=== PATIENT | female | born 1960 | race Caucasian/White ===

== ENCOUNTER 2022-07-09 00:09 | Day surgery (SDC) | payer BC, OTHER, SELFPAY ==
[2022-06-24 13:58] VITALS: BMI 38.7
--- NOTE | 2022-07-08 14:32 | PM.HPGS ---
History of Present Illness History of Present Illness Consent: Risks, benefits, and alternatives have been discussed and questions answered. Patient agrees to proceed with procedure. Chief complaint: neoplasm screening Narrative: Jennifer Gay is a 62 year old female referred for colon cancer screening. This is her 1st colonoscopy. Review of Systems Review of Systems: All systems reviewed & are unremarkable except as noted in HPI and below PMFSH Past Medical History Medical History Diabetes HTN (hypertension) Hypercholesterolemia Obesity Social History Social History Smoking status: Never smoker Alcohol intake: current Drinks per week: 1 Substance use type: does not use Living arrangements: with family Spiritual care concerns: No Meds Home Medications and Allergies Home Medications Medication Instructions Recorded Confirmed Type dulaglutide 3 mg/0.5 mL 4.5 mg subcut WEEKLY 06/24/22 07/09/22 History subcutaneous pen injector (Trulicity) glimepiride 2 mg tablet 2 mg PO DAILY 06/24/22 07/09/22 History hydrochlorothiazide 25 mg tablet 25 mg PO DAILY 06/24/22 07/09/22 History losartan 50 mg tablet 50 mg PO DAILY 06/24/22 07/09/22 History metformin 1,000 mg tablet 1,000 mg PO DAILY 06/24/22 07/09/22 History rosuvastatin 10 mg tablet 10 mg PO DAILY 06/24/22 07/09/22 History Allergies Allergy/AdvReac Type Severity Reaction Status Date / Time No Known Allergies Allergy Mild Verified 07/09/22 08:28 Exam Resp: Auscultation: clear to auscultation bilaterally Cardio: Rate: regular rate Rhythm: regular rhythm GI: GI Palp: Yes Soft to palpation and No Tenderness to palpation present (GI) Assessment and Plan Assessment and plan (1) Colon cancer screening: Code(s): Z12.11 - Encounter for screening for malignant neoplasm of colon Status: Acute Assessment and Plan: Colonoscopy with possible biopsy or polypectomy or cautery or injection of substances.
[2022-07-09] MEDS: LACTATED RINGERS 1,000 ML 150 ML IV CONT (08:40)
[2022-07-09 08:42] VITALS: BP 149/89; PULSE 86; RESP 18; TEMP 36.7; O2SAT 96
[2022-07-09 08:51] LABS: Glucose Point of Care 123 mg/dl (65-105)
--- NOTE | 2022-07-09 08:51 | P.PNAN_ITS ---
Anes - Initial Pre Proc Eval Procedure: Operation Date: 07/09/22 09:30 Proposed Procedures p Screening Colonoscopy - Arthur Jaeger MD Date/Time: 07/09/22 08:51 Surgeon: Arthur Jaeger MD Pre Op Diagnosis: neoplasm screening Patient Data Age: 62 Gender: F Height: 1.78 m Weight: 122.5 kg Last Vital Signs Temp 36.7 C 07/09/22 08:42 Pulse 86 07/09/22 08:42 Resp 18 07/09/22 08:42 BP 149/89 H 07/09/22 08:42 Pulse Ox 96 07/09/22 08:42 O2 Del Method Room Air 07/09/22 08:42 Allergies Allergy/AdvReac Type Severity Reaction Status Date / Time No Known Allergies Allergy Mild Verified 07/09/22 08:28 Home Medications Medication Instructions Recorded Confirmed Type dulaglutide 3 mg/0.5 mL 4.5 mg subcut WEEKLY 06/24/22 07/09/22 History subcutaneous pen injector (Trulicity) glimepiride 2 mg tablet 2 mg PO DAILY 06/24/22 07/09/22 History hydrochlorothiazide 25 mg tablet 25 mg PO DAILY 06/24/22 07/09/22 History losartan 50 mg tablet 50 mg PO DAILY 06/24/22 07/09/22 History metformin 1,000 mg tablet 1,000 mg PO DAILY 06/24/22 07/09/22 History rosuvastatin 10 mg tablet 10 mg PO DAILY 06/24/22 07/09/22 History Patient hx anesthesia problems: none Family hx anesthesia problems: none Results Review: All pre-operative results and documents have been reviewed as part of the pre-operative evaluation. [facility] Past Medical History Medical History (Updated 07/09/22 @ 08:52 by Refugio Dudley MD) Diabetes HTN (hypertension) Hypercholesterolemia Obesity Social History Social History Smoking status: Never smoker Alcohol intake: current Drinks per week: 1 Substance use type: does not use Living arrangements: with family Spiritual care concerns: No Anes - Eval Final PreProcedure Day of Procedure 07/09/22 08:51 Patient weight: obese Heart: regular rate and rhythm Lungs: clear to auscultation and normal air movement Airway: Mallampati scale class II Neurological: alert and oriented Last oral intake: >/= 8 hours ASA classification: III Emergent: no Anesthetic plan: proceed Anesthesia type and monitoring: general GIVS Results Review: All pre-operative results and documents have been reviewed as part of the pre- operative evaluation. Informed Consent: The patient's anesthetic plan and its attendant risks and benefits were discussed with the patient/family/POA. Questions were solicited and answers provided to the satisfaction of the patient/family/POA.
[2022-07-09 09:29] VITALS: BP 105/60; PULSE 96; RESP 23; TEMP 36.7; O2SAT 100
[2022-07-09 09:39] VITALS: BP 109/70; PULSE 97; RESP 22; TEMP 36.7; O2SAT 100
[2022-07-09 09:44] VITALS: BP 111/69; PULSE 77; RESP 20; TEMP 36.7; O2SAT 100
== END 2022-07-09 09:54 | disposition home or self-care (01) ==
PROVIDERS: PCP Nurse Practitioner Family; Visit Provider Internal Medicine Gastroenterology
PROC: 0DJD8ZZ Inspection of Lower Intestinal Tract, Via Natural or Artificial Opening Endoscopic (ICD-10-PCS; CPT 45378; principal; 2022-07-09 09:30)
DX: Z12.11 Encounter for screening for malignant neoplasm of colon (principal); K62.1 Rectal polyp; D12.0 Benign neoplasm of cecum; D12.5 Benign neoplasm of sigmoid colon; K57.30 Diverticulosis of large intestine without perforation or abscess without bleeding; I10 Essential (primary) hypertension; E11.9 Type 2 diabetes mellitus without complications; E78.00 Pure hypercholesterolemia, unspecified; Z68.38 Body mass index [BMI] 38.0-38.9, adult; F10.90 Alcohol use, unspecified, uncomplicated; Z79.85 Long-term (current) use of injectable non-insulin antidiabetic drugs; Z79.84 Long term (current) use of oral hypoglycemic drugs; Z79.899 Other long term (current) drug therapy
CPT/HCPCS: 45380; 45381; 45385; 82948; 88305; J2704; J7120

== ENCOUNTER 2023-04-21 11:34 | Outpatient (CLI) | payer BC, OTHER, SELFPAY ==
--- NOTE | ~2023-04-21 | MMUS_ITS ---
EXAMINATION: MM diagnostic scooby BI w jacob, US breast LT limited HISTORY: Palpable left breast lump TECHNIQUE: Additional 3-D tomosynthesis images of the left breast were performed and synthetic 2-D im ages were generated. CAD analysis was submitted and interpreted. High resolution Limited left breast ultrasound was performed. COMPARISON: Comparison to multiple prior studies sequentially, with oldest reviewed study dated 10/03/2014. BREAST PARENCHYMAL COMPOSITION: The breasts are heterogeneously dense, which may obscure small masses FINDINGS: MAMMOGRAPHIC FINDINGS: The right breast is stable without evidence for malignancy. There is persistent architectural distort ion in the upper outer quadrant of the left breast, presumably from prior biopsy. The architectural d istortion is more evident on current examination, possibly due to fatty involution of the breasts sin ce prior study. ULTRASOUND: Limited left breast ultrasound: At 9:00, 6 cm from the nipple, there is a 4 mm cyst. At 9:00, 6 cm fr om the nipple there is a 5 mm cyst. At 10:00, 5 cm from the nipple, there is an oval hypoechoic mass measuring 5 mm without posterior features or internal vascularity. There is an adjacent oval hypoecho ic mass measuring 9 mm with parallel orientation, circumscribed margins, no posterior features or int ernal vascularity with adjacent areas of shadowing. At 12:00, 3 cm from the nipple, there is a 9 mm c yst. At 2:00, 3 cm from the nipple, there is an oval hypoechoic mass measuring 7 x 5 x 4 mm without i nternal vascularity or significant posterior features. At 3:00, 4 cm from the nipple, there is an ova l hypoechoic mass measuring 8 mm, likely complicated cysts. IMPRESSION: 1. Solid-appearing hypoechoic 9 mm mass of the left breast at 10:00, 5 cm from the nipple with areas of adjacent shadowing and is irregularity. 2. Ultrasound-guided left breast biopsy recommended. BI-RADS category 4, suspicious findings. Reviewed, dictated and finalized at location A. T ADMINISTRATIVE ASSISTANT IMPRESSION: 1. Solid-appearing hypoechoic 9 mm mass of the left breast at 10:00, 5 cm from the nipple with areas of adjacent shadowing and is irregularity. 2. Ultrasound-guided left breast biopsy recommended. BI-RADS category 4, suspicious findings.
== END 2023-04-21 11:35 | disposition home or self-care (01) ==
PROVIDERS: PCP Nurse Practitioner Family; Visit Provider Nurse Practitioner Family
DX: N63.20 Unspecified lump in the left breast, unspecified quadrant (principal); R92.8 Other abnormal and inconclusive findings on diagnostic imaging of breast
CPT/HCPCS: 76642; 77062; 77066; G0279

== ENCOUNTER 2023-05-16 10:11 | Outpatient (CLI) | payer BC, OTHER, SELFPAY ==
--- NOTE | ~2023-05-16 | MMUS_ITS ---
EXAMINATION: US breast biopsy LT w image, MM post biopsy invasive LT DATE: 05/16/2023 12:03 (accession [id number]), 05/16/2023 11:51 (accession [id number]) INDICATION: Palpable mass at the 12:00 location of the left breast. Ultrasound-guided core biopsy is requested to evaluate for malignancy. TECHNIQUE AND FINDINGS: Patient presented for biopsy of a sonographically detected mass at the 10:00 location in the left maurilio ast, 5 cm from the nipple. This area is separate from the palpable abnormality and has features sugge stive of a cyst. With targeted scanning in the area of palpable concern, there is an approximately 1. 5 x 0.9 cm irregular hypoechoic mass with indistinct margins at the 12:00 location, 7 cm from the nip ple. This was targeted for biopsy. The risks and potential benefits of the procedure were discussed w ith the patient including bleeding and infection. A time out was performed. The skin of the left smith st was prepared and draped in usual sterile fashion. 1% lidocaine was used for superficial anesthesia . 1% lidocaine with epinephrine was used for deep anesthesia. A vacuum-assisted biopsy needle was advanced through to the outer edge of the region of interest from an inferolateral approach utilizing sonographic guidance. A total of four tissue core samples were o btained through the lesion. A tissue marker clip was then placed at the biopsy site. Hemostasis was a chieved. A sterile bandage was applied. The patient tolerated procedure well and there was no evidence of immediate complication. The patient was given verbal instructions to return to the Emergency Department in the event of severe breast pa in or rapid breast enlargement. A two view left breast mammogram was obtained to document tissue gerald er clip placement. IMPRESSION: 1. Successful ultrasound-guided vacuum-assisted biopsy of left breast mass with tissue marker placeme nt. Reviewed, dictated and finalized at location A. NTURE GUIDE IMPRESSION: 1. Successful ultrasound-guided vacuum-assisted biopsy of left breast mass with tissue marker placement.
== END 2023-05-16 10:12 | disposition home or self-care (01) ==
PROVIDERS: PCP Nurse Practitioner Family; Visit Provider Nurse Practitioner Family
DX: D24.2 Benign neoplasm of left breast (principal); R92.8 Other abnormal and inconclusive findings on diagnostic imaging of breast
CPT/HCPCS: 19083; 88305; A4648

== ENCOUNTER 2023-08-09 13:34 | Outpatient (CLI) | payer BC, OTHER, SELFPAY ==
--- NOTE | ~2023-08-09 | MR_ITS ---
MR breast BI wo/w con 08/10/2023 09:07 NURSING SURGICAL SERVICES DIRECTOR INDICATION: Malignant neoplasm of the left breast. TECHNIQUE: MRI of the breasts perform using standard protocol pre-and post IV contrast with the follo wing sequences: Axial T2 STIR, axial T1, axial vibrant T1 with fat suppression precontrast and multip hasic postcontrast. COMPARISON: Comparison to multiple prior studies sequentially, with oldest reviewed study dated 03/14. FINDINGS: There is moderate background parenchymal enhancement. At 12:00, middle third in the upper o uter quadrant there is a oval circumscribed mass measuring 1.2 x 0.6 x 0.7 cm which is T1 hypointense and T2 hypointense with medium plateau enhancement, likely benign. No evidence of signal abnormaliti es in the axillary or internal mammary node distributions. LEFT BREAST: There is moderate background parenchymal enhancement. In the upper outer quadrant of the left breast at 1:00, middle third, in the area of mammographic concern there is an irregular sha ped enhancing mass measuring approximately 2.3 x 2.1 x 1.7 cm with rapid washout enhancement. This ma ss is 7.5 cm posterior to the nipple and approximately 4.3 cm from the skin surface. There are multip le cysts of the left breast as well as nonenhancing circumscribed benign-appearing masses, likely com plicated cysts or fibroadenomas. No evidence of signal abnormalities in the axillary or internal mamm amado node distributions.] IMPRESSION: 1: Right breast: Right breast mass with oval-shaped, circumscribed margins and homogeneous ileum sigifredo teau enhancement measuring 1.2 cm, likely benign. Recommend second look ultrasound. BI-RADS Category 0 incomplete. 2: Left breast: Irregular shaped left breast mass at 1:00, middle third measuring 2.3 cm with irregu lar margins, heterogeneous rapid washout enhancement, likely corresponding to patient's known maligna ncy. BI-RADS Category 6 known malignancy. Consider follow-up ultrasound and mammography as clinically indicated. Reviewed, dictated and finalized at location A. ING SURGICAL SERVICES DIRECTOR IMPRESSION: 1: Right breast: Right breast mass with oval-shaped, circumscribed margins and homogeneous ileum plateau enhancement measuring 1.2 cm, likely benign. Recomme nd second look ultrasound. BI-RADS Category 0 incomplete. 2: Left breast: Irregular shaped left breast mass at 1:00, middle third measur ing 2.3 cm with irregular margins, heterogeneous rapid washout enhancement, lik nelly corresponding to patient's known malignancy. BI-RADS Category 6 known malig daniela. Consider follow-up ultrasound and mammography as clinically indicated.
== END 2023-08-09 13:35 | disposition home or self-care (01) ==
LOC: ANHIMG 13:37
PROVIDERS: PCP Nurse Practitioner Family; Visit Provider Surgery
DX: C50.912 Malignant neoplasm of unspecified site of left female breast (principal); C50.911 Malignant neoplasm of unspecified site of right female breast; R92.8 Other abnormal and inconclusive findings on diagnostic imaging of breast
CPT/HCPCS: 77049; A9577; C8908

== ENCOUNTER 2023-08-22 09:42 | Outpatient (CLI) | payer BC, OTHER, SELFPAY ==
--- NOTE | ~2023-08-22 | US_ITS ---
US breast RT limited DATE: 08/22/2023 10:27 INDICATION: Second look ultrasound; August 09, 2023 MR breast examination reveals an oval-shaped ci rcumscribed approximately 12:00 or upper outer quadrant mass of 1.2 cm dimension, reported likely stefan ign. TECHNIQUE: Real-time and color flow imaging of upper inner and upper outer quadrants of right breast, including 12:00 area COMPARISON: August 09, 2023 bilateral MR breast examination FINDINGS: 9:00 8 cm from nipple: 9 x 8 x 7 mm circumscribed sonolucency with through transmission consistent wi th simple cyst 10:00 5 cm from nipple: Circumscribed 9 x 6 x 6 mm sonolucency with through transmission, most likely a simple cyst 11:00 6 cm from nipple: Parallel circumscribed approximately 7 x 6 x 4.6 mm hypoechoic lesion with th rough transmission posterior enhancement, no internal vascularity, likely benign, likely a benign com plicated cyst or benign solid mass. 1:00 7 cm from nipple: Parallel circumscribed approximately 5 x 3 x 6 mm sonolucency, likely a benign cyst 2:00 9 cm from nipple: Parallel circumscribed oval hypoechoic 3 x 5 mm area without suspicious shadow ing, benign in appearance 3:00 8 cm from nipple: Oval 3.6 x 4.8 mm circumscribed hypoechoic lesion without internal vascularity or posterior shadowing. No suspicious mass or shadowing is evident in the upper inner or upper outer quadrants. IMPRESSION: BI-RADS Category 2: Benign right breast (BI-RADS Category 6 left breast) Reviewed, dictated and finalized at Location A. Reviewed, dictated and finalized at location A.
== END 2023-08-22 09:43 | disposition home or self-care (01) ==
LOC: ANHIMG 09:44
PROVIDERS: PCP Nurse Practitioner Family; Visit Provider Surgery
DX: R92.8 Other abnormal and inconclusive findings on diagnostic imaging of breast (principal)
CPT/HCPCS: 76642

== ENCOUNTER 2023-09-14 01:04 | Day surgery (SDC) | payer BC, OTHER, SELFPAY ==
[2023-09-12 14:08] VITALS: BMI 39.6
--- NOTE | 2023-09-12 15:39 | PC.NURSE ---
Report to the Outpatient Waiting Room, entrance under the green pavilion located off [facility], at time _0630__ on date 09/24/23 . Planned Procedure Time: __929 . Time changes happen often and if your time is changed the preop area will call you the afternoon before. - You and your visitor will be asked to self-screen and do not enter if you have any COVID symptoms. - A mask is optional within the hospital at this time. Patients may have clear liquids (water, carbonated beverages, clear teas, apple juice) until 3 hours prior to surgery with a maximum of 20 ounces. - No food from midnight until time of surgery Take the following medications with a SIP of water the morning of surgery: ___NONE DO NOT STOP ANY OF YOUR OTHER PRESCRIPTION MEDICATIONS PRIOR TO SURGERY ?EXCEPT THE FOLLOWING Medications to discontinue per physician NONE Date to take last dose___NONE Please no make-up, nail prydeinig, hairspray, perfume, deodorant, or body powder the day of surgery. No jewelry (including any body piercings) or valuables the day of surgery, leave them at home. Please take a shower or bath the night before, or the morning of, surgery with an antibacterial soap. Wear comfortable, loose fitting clothing. - Jewelry must be removed prior to entering the operating room. Rings and piercings that are not removed may be cut off. - The hospital will not accept responsibility for valuables. - Please leave all valuables, including medications, at home the day of surgery. If you are going home after surgery, a licensed parcel post truck driver must drive you home. - NO public transportation without another adult if you receive anesthesia. - We recommend that an adult stay with you for 24 hours following discharge. - We also recommend that you do not drive, make important decision, drink alcoholic beverages, or take any drugs that were not prescribed by your health care provider for at least 24 hours after your discharge time. Follow any additional instructions given to you from your surgeon If you or anyone in your household have experienced Covid symptoms in the past week, please notify your surgeon or the nurse liaison at the phone number below for possible testing. Telephone instructions given to _LUCERO and asked if any additional questions and then verbalized understanding. Patient advised to call surgeon office or pre surgery nurse liaison [phone] if any additional questions.
--- NOTE | 2023-09-13 17:53 | PM.SD2 ---
Same Day Admit/Disch: HPI History of Present Illness Chief complaint: Left Breast Cancer Narrative: Jennifer Gay is a 63 year old female who 1st noticed a palpable mass in the upper midline of the left breast. Ultrasound-guided biopsy showed a fibroadenoma. After radiologist review, this finding was felt to be discordant from the imaging findings. Patient went to [facility] imaging center and had another biopsy using tomosynthesis. This biopsy did show invasive mammary carcinoma with lobular features and lobular carcinoma in Situ. Bilateral MRI of the breast was performed and there was a question of the lesion in the right breast that was 1.2 cm. Ultrasound was recommended and was negative for any right breast pathology. The left breast malignant lesion was felt to be 2.3 cm by MRI. Patient had thorough discussion of the breast pathology as well as treatment alternatives. She is taken to surgery at this time for left breast wire localization and lumpectomy as well as left axillary sentinel lymph node biopsy. [facility] Past Medical History Medical History Diabetes HTN (hypertension) Hypercholesterolemia Obesity Family History Family History Father Lung cancer Mother Heart attack Sibling Breast cancer Other Diabetes mellitus Social History Social History Smoking status: Never smoker Alcohol intake: current Drinks per week: 1 Substance use: never Substance use type: does not use Living arrangements: with family Spiritual care concerns: No Same Day Admit/Disch: Med Pre-admit Medications Home Medications Medication Instructions Recorded Confirmed Type dulaglutide 3 mg/0.5 mL 4.5 mg subcut WEEKLY 06/24/22 09/12/23 History subcutaneous pen injector (Trulicity) glimepiride 2 mg tablet 2 mg PO DAILY 06/24/22 09/12/23 History hydrochlorothiazide 25 mg tablet 25 mg PO DAILY 06/24/22 09/12/23 History losartan 50 mg tablet 50 mg PO DAILY 06/24/22 09/12/23 History metformin 1,000 mg tablet 1,000 mg PO DAILY 06/24/22 09/12/23 History rosuvastatin 10 mg tablet 10 mg PO DAILY 06/24/22 09/12/23 History ibuprofen 600 mg tablet 600 mg PO Q6H PRN pain #14 tabs 04/03/24 Rx oxycodone-acetaminophen 5 mg-325 0.5 - 1 tablet PO Q6H PRN pain #10 09/14/23 Rx mg tablet tabs Review of Systems Review of Systems All systems reviewed & are unremarkable except as noted in HPI and below (HPI) Exam Const: General: cooperative, comfortable, no acute distress, alert, awake, well groomed and obese HENMT: Head: normocephalic and atraumatic Mouth: Yes Normal oral and palatal mucosa present Eyes: Conjunctivae: conjunctivae normal Pupils: Equal, round and reactive pupils present EOM: EOMs intact bilaterally Neck: Neck: normal visual inspection, no lymphadenopathy and nontender Chest: Breast/axilla inspection: normal inspection of the breasts and normal inspection of the axillae Breast/axilla palpation: normal palpation of the axillae and abnormal palpation of the breast (Firm 2.5 cm lesion upper midline left breast, firm but not hard. ) Resp: Effort & Inspection: normal respiratory effort Auscultation: clear to auscultation bilaterally Cardio: Rate: regular rate Rhythm: regular rhythm Heart sounds: no gallops, no murmurs and no rubs GI: Inspection: non-distended GI Palp: Yes Soft to palpation, No Tenderness to palpation present (GI), No Hepatomegaly present and No Splenomegaly present Skin: Lesions: no lesions Rashes: no rashes Neuro: General: no focal motor deficits and CN's II-XI intact bilaterally Cranial nerves: Yes Equal, round and reactive pupils present, Yes Bilaterally intact EOM present, Yes facial symmetry and Yes Midline tongue present Speech: normal speech Motor exam (neuro): 5/5 motor strength present throughout and Motor abnormal
[2023-09-14] VITALS (9 sets, daily range): BP systolic 128–162; BP diastolic 75–90; PULSE 60–73; RESP 12–20; TEMP 36.2; O2SAT 96–100
--- NOTE | ~2023-09-14 | MM_ITS ---
MM surgical specimen LT, NM sentinel node w imaging, MM needle loc LT EXAMINATION: MM surgical specimen LT, NM sentinel node w imaging, MM needle loc LT MAMMOGRAPHY SPECIMEN DATE: 09/14/2023 11:30 CDT 1 Millicuries Tc 99m filtered sulfur colloid was injected and 4 aliquots in the anterior upper outer quadrant of the breast near the areola. No images were obtained. The procedure for a mammography-guided needle localization was discussed with the patient's. Risks a nd benefits were detailed, including risks of bleeding, infection, pain, and nondiagnostic specimen. The patient verbalized understanding and agreed to proceed. The time out was performed to verify the patient's name, date of , and site of procedure. The p atient was placed in left breast compression, and the skin overlying the left breast was prepped in u sual fashion. Utilizing mammography guidance, a needle was advanced into the left breast. Two confi rmatory films were obtained. The patient tolerated procedure without immediate complication. A specimen radiograph was performed. FINDINGS: Two view confirmatory films of the left breast demonstrate a the wire adjacent to the left. The tissue marker is contained within the surgical specimen.] IMPRESSION: 1. Successful mammography-guided left breast needle localization. 2: Successful sentinel lymph node injection performed prior to the needle localization. Reviewed, dictated and finalized at location A. IMPRESSION: 1. Successful mammography-guided left breast needle localization. 2: Successful sentinel lymph node injection performed prior to the needle local ization. IMPRESSION: 1. Successful mammography-guided left breast needle localization. 2: Successful sentinel lymph node injection performed prior to the needle local ization.
--- NOTE | 2023-09-14 06:51 | ECG_ITS ---
Measurements Intervals [place] Rate: 64 P: 23 DC: 194 QRS: 23 QRSD: 80 T: 61 QT: 397 QTc: 410 Interpretive Statements SINUS RHYTHM LOW QRS VOLTAGE IN PRECORDIAL LEADS [QRS DEFLECTION < 1.0 mV IN CHEST LEADS] NONSPECIFIC ST ABNORMALITY BORDERLINE ECG NO PREVIOUS ECG AVAILABLE FOR COMPARISON Electronically Signed On 09-14-2023 14:33:09 CDT by Santiago Cash M.D.
[2023-09-14] MEDS: ACETAMINOPHEN 500 MG TABLET 1000 MG PO (07:50)
[2023-09-14] MEDS: KETOROLAC 15 MG/ML VIAL (*BKC) IV PUSH (07:53)
[2023-09-14 07:55] LABS: Glucose Point of Care 138 mg/dl (65-105)
[2023-09-14 08:05] LABS: Anion Gap 7 mmol/L (4-12); Blood Urea Nitrogen 19 mg/dL (7-17); Calcium 9.5 mg/dL (8.4-10.2); Carbon Dioxide 28 mmol/L (22-30); Chloride 104 mmol/L (98-107); Estimated CRCL calculation 70 ml/min; Estimated Glomerular Filt Rate 50; Glucose 147 mg/dL (65-110); Potassium 3.8 mmol/L (3.4-5.0); Sodium 139 mmol/L (137-145)
[2023-09-14] MEDS: LACTATED RINGERS 1,000 ML 30 ML IV CONT ×2 (08:51→12:11)
--- NOTE | 2023-09-14 09:28 | WPDHPUPDATE1 ---
History and Physical Update Update Date/Time: 09/14/23 09:28 History and Physical has been reviewed, including an updated exam of the patient. There are NO changes in the patient's condition. Risks, benefits, and alternatives have been discussed and questions answered. Patient agrees to proceed with procedure.
--- NOTE | 2023-09-14 09:28 | WPDANESEPPF ---
Anes - Initial Pre Proc Eval Procedure: Operation Date: 09/14/23 09:30 Proposed Procedures p Left Breast Biopsy with Ultrasound And/Or Mammogram Guided Wire Needle Localization - Amor Sanches MD s Left Breast Lumpectomy with Left Axillary P[place] Lymph Node Biopsy - Amor Sanches MD Date/Time: 09/14/23 09:28 Surgeon: Amor Sanches MD Pre Op Diagnosis: Left Breast Cancer Patient Data Age: 63 Gender: F Height: 1.8 m Weight: 137.3 kg Allergies Allergy/AdvReac Type Severity Reaction Status Date / Time No Known Allergies Allergy Mild Verified 07/28/23 08:31 Home Medications Medication Instructions Recorded Confirmed Type dulaglutide 3 mg/0.5 mL 4.5 mg subcut WEEKLY 06/24/22 09/12/23 History subcutaneous pen injector (Trulicity) glimepiride 2 mg tablet 2 mg PO DAILY 06/24/22 09/12/23 History hydrochlorothiazide 25 mg tablet 25 mg PO DAILY 06/24/22 09/12/23 History losartan 50 mg tablet 50 mg PO DAILY 06/24/22 09/12/23 History metformin 1,000 mg tablet 1,000 mg PO DAILY 06/24/22 09/12/23 History rosuvastatin 10 mg tablet 10 mg PO DAILY 06/24/22 09/12/23 History Laboratory Tests 09/14/23 07:48 Sodium 139 mmol/L (137-145) Potassium 3.8 mmol/L (3.4-5.0) Chloride 104 mmol/L (98-107) Carbon Dioxide 28 mmol/L (22-30) Anion Gap 7 L mmol/L (4-12) BUN 19 H mg/dL (7-17) Creatinine 1.10 H mg/dL (0.7-1.0) Estim Creat Clear Calc 70 ml/min Estimated GFR 50 L (59 - ) Glucose 147 H mg/dL (65-110) POC Capillary Glucose 138 H mg/dl (65-105) Calcium 9.5 mg/dL (8.4-10.2) Patient hx anesthesia problems: none Family hx anesthesia problems: none Results Review: All pre-operative results and documents have been reviewed as part of the pre-operative evaluation. [facility] Past Medical History Medical History Diabetes HTN (hypertension) Hypercholesterolemia Obesity Family History Family History Father Lung cancer Mother Heart attack Sibling Breast cancer Other Diabetes mellitus Social History Social History Smoking status: Never smoker Alcohol intake: current Drinks per week: 1 Substance use: never Substance use type: does not use Living arrangements: with family Spiritual care concerns: No Anes - Eval Final PreProcedure Day of Procedure 09/14/23 09:28 Patient weight: obese Heart: regular rate and rhythm Lungs: clear to auscultation Airway: Mallampati scale class III Neurological: alert and oriented Last oral intake: >/= 8 hours ASA classification: III Emergent: no Anesthetic plan: proceed Anesthesia type and monitoring: general and standard monitoring Other findings: EKG reviewed. Results Review: All pre-operative results and documents have been reviewed as part of the pre-operative evaluation. Informed Consent: The patient's anesthetic plan and its attendant risks and benefits were discussed with the patient/family/POA. Questions were solicited and answers provided to the satisfaction of the patient/family/POA.
[2023-09-14] MEDS: ceFAZolin 3 GM/D5W 100 ML 100 ML IVPB (09:52)
[2023-09-14] MEDS: BUPIVACAINE/EPINEPHRINE 0.5% 50 ML VIAL 60 ML INFILTRATE (10:22)
[2023-09-14] MEDS: ISOSULFAN BLUE 1% INJ 5 ML VIAL SUB-Q (10:23)
--- NOTE | 2023-09-14 12:25 | SUR.PHASEI ---
1224-2xl surgical bra is too small for pt-large amt of breast pushing up and out of bra. Dr. Sanches made aware and instructed to remove braand have pt wear own supportive bra post op. 1226-Bra loosened-unable to remove r/t loc.
--- NOTE | 2023-09-14 12:33 | W.PM.PROC2 ---
Procedure Note - Detailed Date of Procedure 09/14/23 Pre-op Diagnosis Left Breast Cancer Post-op Diagnosis Same Procedure Performed Wire localization left breast lumpectomy, left axillary sentinel lymph node biopsy Surgeon Amor Sanches MD [employer] Renetta [place] [facility] Anesthesia General (LMA) and Local Indications Patient had biopsy-proven mammary carcinoma with lobular features as well as lobular carcinoma in Situ. She is taken to surgery now for left breast lumpectomy with axillary sentinel node biopsy. Findings Three sentinel lymph nodes were sent to pathology for evaluation. The mammogram of the specimen showed that the marker was well within the tissue removed. There was quite a bit of scarred and fibrous breast tissue. Description of Procedure Patient was taken to surgery and induced into general anesthesia. She had previously been to x-ray where wire localization had been performed and radioisotope had been injected. The left breast and left arm were prepped and draped such that the arm was mobile and in the field. We started by injecting Isosulfan Blue dye under the left nipple. A few cc were injected and then gentle breast massage was carried out. We then used the navigator and located in the left axilla the areas of high isotope emission. The proposed axillary incision was marked on the skin. Local was infiltrated into the skin and the deeper subcutaneous tissues. Incision was made and dissection was carried down through the subcutaneous into the axillary fat. The navigator had been used during the dissection to direct us towards the sentinel lymph nodes. Once we entered the axillary tissue, we readily came upon a stain axillary in node that was pretty superficial. It also had dye staining. I carefully dissected this lymph node out. Lymphatic channels were clipped and divided. Some cautery was used. Eventually it was removed intact. I recheck did with the navigator and had very high isotope emission. This was sent as axillary lymph node 1. We then returned the navigator and found more areas of isotope emission. We continued deeper dissection in the axilla and found a 2nd lymph node. This was also stained with dye but had less isotope emission than lymph node 1. This lymph node was also dissected in similar fashion. Once removed it was again checked with the navigator and had fairly high isotope emission but also blue dye staining. This was sent as sentinel lymph node 2. We were still getting very high isotope emission deeper in the axilla and more cephalad. We dissected to this area. We were in the area of the axillary artery and vein but they were never seen or palpated. Dissection there and again revealed a dye stained lymph node. This had very high isotope emission as well. We clip the lymphatic channels and divided them. We dissected this node from the axillary tissue. It was tested and had very high isotope emission as well. This was sent as sentinel lymph node 3. We then checked the axilla with the navigator and found really no areas of high isotope emission. We ensured that hemostasis was adequate. The axilla was then closed with layered interrupted suture of 3-0 Monocryl. The skin was closed with subcuticular interrupted 3-0 Monocryl. We then placed a laparotomy sponge and a blue towel over the axilla and turned our attention to the left breast. We had the mammograms taken on a viewing board. The proposed incision was then marked in the upper outer quadrant of the left breast. Local anesthetic was infiltrated into the skin and the deeper subcutaneous tissues. Incision was made and dissection was carried down through 1-2 cm of breast tissue. I then pulled the wire through the skin such that it came out the wound. I then dissected another 2 cm into the breast tissue. At this point I felt that was in the general vicinity of the tumor. I then started excising around the area of the anticipated tumor but yet encom
[2023-09-14 12:40] LABS: Glucose Point of Care 109 mg/dl (65-105)
[2023-09-14] MEDS: fentaNYL CITRATE INJ (*CRX) 100 MCG/2 ML VIAL 25 MCG IV PUSH ×2 (12:56→13:03)
[2023-09-14] MEDS: oxyCODONE HCL (*CRX) 5 MG TAB IR PO (13:43)
== END 2023-09-14 14:20 | disposition home or self-care (01) ==
PROVIDERS: Anesthesiology; PCP Internal Medicine; Visit Provider Surgery
PROC: (CPT 38525; principal; 2023-09-14 09:30)
PROC: (CPT 38525; 2023-09-14 09:30)
DX: C50.812 Malignant neoplasm of overlapping sites of left female breast (principal); Z17.0 Estrogen receptor positive status [ER+]; E11.9 Type 2 diabetes mellitus without complications; I10 Essential (primary) hypertension; E78.00 Pure hypercholesterolemia, unspecified; E66.01 Morbid (severe) obesity due to excess calories; Z68.41 Body mass index [BMI] 40.0-44.9, adult; Z79.85 Long-term (current) use of injectable non-insulin antidiabetic drugs; Z79.84 Long term (current) use of oral hypoglycemic drugs
CPT/HCPCS: 38525; 19301; 19281; 36415; 76098; 78195; 80048; 82948; 88305; 88307; 88342; 88360; 93005; A9270; A9520; C1713; C1769; J0690; J1885; J2250; J2371; J2405; J2704; J3010; J7120

== ENCOUNTER 2023-10-12 15:49 | Outpatient (CLI) | payer BC, OTHER, SELFPAY ==
[2023-10-12 16:07] LABS: Kit Draw Collected
== END 2023-10-12 15:50 | disposition home or self-care (01) ==
LOC: ANHLAB 15:52
PROVIDERS: PCP Internal Medicine; Visit Provider Internal Medicine Hematology & Oncology
DX: C50.412 Malignant neoplasm of upper-outer quadrant of left female breast (principal)
CPT/HCPCS: 36415

== ENCOUNTER 2024-04-02 08:11 | Outpatient (CLI) | payer BC, OTHER, SELFPAY ==
--- NOTE | ~2024-04-02 | DEXA_ITS ---
Bone Density Report Name: SARINA VENEGAS Age: 63 Sex: Female Ethnicity: White Date of : 1960 Indication: postmenopausal; screening for osteoporosis; height loss; cancer; hysterectomy; Referring Provider: GERARDO BRUNER Study: Bone densitometry was performed. Exam Date: April 02, 2024 Accession number: [id number] Bone Density: Region BMD T-score Z-score Classification AP Spine(L1-L4) 0.892 -1.4 0.2 Osteopenia Femoral Neck (Left) 0.743 -1.0 0.5 Normal Total Hip (Left) 1.078 1.1 2.2 Normal Femoral Neck (Right) 0.753 -0.9 0.5 Normal Total Hip (Right) 1.065 1.0 2.1 Normal Total Hip Mean 1.072 1.1 2.2 Normal World Health Organization criteria for BMD impression classify patients as: Normal (T-score at or above -1.0), Osteopenia (T-score between -1.0 and -2.5), or Osteoporosis (T-score at or below -2.5). 10-year Fracture Risk(1): Major Osteoporotic Fracture 6.7% Hip Fracture 0.4% Reported Risk Factors: [place] (), Neck BMD=0.743, BMI=41.9 Input outside FRAX(R) limits. Adjusted to:Ehdftc=168 kg (1) FRAX(R) Version 3.08. Fracture probability calculated for an untreated patient. Fracture probability may be lower if the patient has received treatment. Clinical Information Provided by Patient: Has used the following medications: Vitamin D, Calcium Has the following medical conditions: Cancer, Hysterectomy, breast ca Patient maximum height was 69.5 No regular weight bearing exercise Drinks caffeinated beverages Onset of menses at age 17 Number of children 3 Impression: The patient has low bone mass, based on the Total Spine T-score. The patient has an estimated ten-year risk of hip fracture of 0.4% and an estimated ten-year risk of major fracture of 6.7%, based on the WHO FRAX algorithm. Discussion: BONE DENSITY IS LOW AT ONE OR MORE SKELETAL SITES. This patient's lowest T-score is low at one or more skeletal sites. It meets the World Health Organization's (WHO) criteria for ?low bone mass? (T-score between -1.0 and -2.5). The patient's 10-year risk of fracture as calculated by FRAX is less than the threshold where pharmacological therapy is recommended by the National Osteoporosis Foundation (NOF). However, all treatment decisions require clinical judgment and consideration of individual patient factors, including patient preferences, comorbidities, previous drug use, risk factors not captured in the FRAX model (e.g., frailty, falls, vitamin D deficiency, increased bone turnover, interval significant decline in bone density) and possible under or overestimation of fracture risk by FRAX. The patient should follow a healthful lifestyle (good nutrition with adequate calcium and vitamin D, and appropriate weight-bearing exercise). Follow-Up: Consider repeating
== END 2024-04-02 08:12 | disposition home or self-care (01) ==
LOC: ANHIMG 08:12
PROVIDERS: PCP Internal Medicine; Visit Provider Internal Medicine Hematology & Oncology
DX: M85.88 Other specified disorders of bone density and structure, other site (principal); Z78.0 Asymptomatic menopausal state
CPT/HCPCS: 77080

== ENCOUNTER 2024-04-09 11:11 | Outpatient (CLI) | payer BC, OTHER, SELFPAY ==
[2024-04-09 11:27] LABS: Basophils Absolute Auto 0.1 K/mm3 (0.0-0.1); Eosinophils Absolute Auto 0.3 K/mm3 (0-0.3); Eosinophils Percent Auto 3.5 % (0-4.4); Hematocrit 38.3 % (37.0-47.0); Hemoglobin 12.3 g/dL (12.0-15.0); Immature Granulocyte Absolute 0.04 K/mm3 (0.00-0.031); Immature Granulocyte Percent A 0.6 % (0-0.5); Lymphocytes Absolute Auto 1.74 K/mm3 (0.9-3.2); Lymphocytes Percent Auto 24.6 % (18.3-44.2); Mean Corpuscular HGB Conc 32.1 g/dl (32-36); Mean Corpuscular Hemoglobin 26.8 pg (26-34); Mean Corpuscular Volume 83.4 fl (80-100); Mean Platelet Volume 10.4 fl (7.4-10.4); Monocytes Absolute Auto 0.6 K/mm3 (0.1-0.6); Monocytes Percent Auto 8.5 % (2.6-8.5); Neutrophils Absolute Auto 4.4 K/mm3 (1.3-6.7); Neutrophils Percent Auto 61.8 % (45.5-73.1); Platelet Count Result 267 k/mm3 (150-375); Red Blood Count 4.59 M/mm3 (4.2-5.4); Red Cell Distribution Width 14.3 % (11.5-14.5); White Blood Count 7.1 K/mm3 (4.5-10.0)
[2024-04-09 14:07] LABS: Alanine Aminotransferase 26 U/L (6-35); Albumin Level 4.2 g/dL (3.5-5.1); Alkaline Phosphatase 93 U/L (38-126); Anion Gap 12 mmol/L (4-12); Aspartate Amino Transferase 23 U/L (14-36); Bilirubin,Total 0.5 mg/dL (0.2-1.3); Blood Urea Nitrogen 17 mg/dL (7-17); Calcium 9.2 mg/dL (8.4-10.2); Carbon Dioxide 24 mmol/L (22-30); Chloride 102 mmol/L (98-107); Estimated Glomerular Filt Rate 56; Glucose 226 mg/dL (65-110); Potassium 3.8 mmol/L (3.4-5.0); Sodium 138 mmol/L (137-145)
[2024-04-11 03:24] LABS: CA 15-3 17 U/mL (<32)
== END 2024-04-09 11:12 | disposition home or self-care (01) ==
LOC: ANHLAB 11:12
PROVIDERS: PCP Internal Medicine; Visit Provider Internal Medicine Hematology & Oncology
DX: C50.912 Malignant neoplasm of unspecified site of left female breast (principal); Z17.0 Estrogen receptor positive status [ER+]
CPT/HCPCS: 36415; 80053; 85025; 86300

== ENCOUNTER 2024-06-29 10:13 | Outpatient (CLI) | payer BC, OTHER, SELFPAY ==
--- NOTE | ~2024-06-29 | MMUS_ITS ---
EXAMINATION: MM diagnostic scooby BI w jacob, US breast BI complete HISTORY: Left breast cancer status post lumpectomy TECHNIQUE: Additional 3-D tomosynthesis images of the breasts were performed and synthetic 2-D images were generated. CAD analysis was submitted and interpreted. High resolution bilateral complete breas t ultrasound was performed. COMPARISON: Comparison to multiple prior studies sequentially, with oldest reviewed study dated 10/03. BREAST PARENCHYMAL COMPOSITION: Dense: The breasts are heterogeneously dense, which may obscure small masses FINDINGS: MAMMOGRAPHIC FINDINGS: There are no suspicious masses, calcifications or architectural distortion in either breast to sugges t malignancy. There are benign bilateral breast calcifications. ULTRASOUND: Complete US of all 4 quadrants of the breast/s and retroareolar region was reviewed. Right breast: At 12:00, 3 cm from the nipple there is an echogenic focus with shadowing, consistent w ith benign calcification. At 12:00, 2 cm from the nipple there is a 6 mm cyst. At 1:00, 6 cm from the nipple there is a 6 mm cyst. At 2:00, 5 cm from the nipple there is an oval hypoechoic mass with par allel orientation, no posterior features and no internal vascularity measuring 8 mm. At 3:00 near the nipple there is a benign cyst. At 4:00, 3 cm from the nipple there is an oval hypoechoic parallel or iented mass containing internal calcifications with posterior shadowing measuring 6 mm. At 6:00, 3 cm from the nipple there is a 8 mm cyst. At 9:00, 7 cm from the nipple there is a 1 cm cyst. At 6:00, 1 cm from the nipple there is an antiparallel hypoechoic mass with slightly irregular lateral margins. There is posterior acoustic enhancement. This mass measures 8 mm maximum dimension. At 7:00, 4 cm fr om the nipple there is an antiparallel hypoechoic mass with slightly irregular lateral margins measur ing 7 mm. There is posterior acoustic enhancement. Left breast: At 12:00, 8 cm from the nipple there is an oval hypoechoic mass with hyperechoic anterio r rim, parallel orientation and no significant posterior features or internal vascularity, likely stefan ign. At 12:00, 6 cm from the nipple there is a cyst. At 3:00 there is a round hypoechoic mass without significant posterior features measuring 6 mm, likely a complicated cyst. At 1:00, 7 cm from the nip ple there appears to be a dilated duct containing an intraluminal mass which is slightly hyperechoic measuring 1.8 cm. IMPRESSION: 1. Irregular antiparallel masses of the right breast at 6:00, 1 cm from the nipple and 7:00, 4 cm fro m the nipple. Abnormal intraluminal mass of the left breast at 1:00, 7 cm from the nipple. 2. Ultrasound-guided biopsy of these masses recommended. BI-RADS category 4, suspicious findings. Reviewed, dictated and finalized at location A. [employer] IMPRESSION: 1. Irregular antiparallel masses of the right breast at 6:00, 1 cm from the nip ple and 7:00, 4 cm from the nipple. Abnormal intraluminal mass of the left [address] at 1:00, 7 cm from the nipple. 2. Ultrasound-guided biopsy of these masses recommended. BI-RADS category 4, suspicious findings.
--- OUTSIDE RECORDS SUMMARY | 2024-07-05 06:21 | XMS_ITS | Data Portability ---
Author Organization [facility], Main Office Address [address] [place] [address] Assessment Encounter Date Assessment Date Assessment LastModified by Organization Details LastModified Time 09/16/2022 09/16/2022 WEA-01/19/22 Cscope- 06/2022- polyps-tubular adenoma- repeat 3 years- 06/2025 Mammogram-ordere d DEXA- ordered, encouraged [employer] 11/30/19- get scheduled, has been referred to [employer] [employer] multiple times DM eye exam- 04/2023 Call office if worse, ER if life threatening illness RTC 3 months She voices understanding of plan and agrees [email or web address] Not available 09/16/2022 11:13:48 12/24/2022 12/24/2022 WEA-01/19/22 Cscope- 06/2022- polyps-tubular adenoma- repeat 3 years- 06/2025 Mammogram-ordere d, encouraged DEXA- ordered, encouraged WWE 11/30/19- get scheduled, has been referred to [employer] multiple times DM eye exam- 04/2022 Call office if worse, ER if life threatening illness RTC 3 months She voices understanding of plan and agrees Not available 12/24/2022 15:03:16 03/25/2023 03/25/2023 WEA-03/25/23 Cscope- 06/2022- polyps-tubular adenoma- repeat 3 years- 06/2025 Mammogram-ordere d, encouraged DEXA- ordered, encouraged WWE 11/30/19- get scheduled, has been referred to [facility] [facility] multiple times DM eye exam- 04/2022 Call office if worse, ER if life threatening illness RTC 4 months She voices understanding of plan and agrees Not available 03/25/2023 11:33:27 Plan of Treatment Reminders Order Date Submit Date Provider Last Modified By Organization Details Last Modified Time Details Appointments Any 15 2024 08:00A Meredith Garcia APRN Not available Not available Not available Lab ferritin, serum or plasma 2022 023 [facility] (Lab), [address] [place], [address], 09/16/2022 12:40:27 iron + total iron-bind ing capacity (TIBC), serum 2022 023 [facility] (Lab), [address] [place], [address], 09/16/2022 11:57:04 lipid panel, serum 2022 023 [facility] (Lab), [address] [place], [address], 09/16/2022 12:19:32 TSH + free T4, serum [address] (Lab), [address] [place], [address], 09/23/2022 11:20:05 vitamin D, 25-hydrox y, total, serum [address] (Lab), [address] [place], [address], 09/23/2022 11:20:05 urinalysi s complete, reflex culture [address] (Lab), [address] [place], [address], 09/23/2022 11:20:05 CMP, serum or plasma 2022 023 [facility] (Lab), [address] [place], [address], 09/16/2022 12:19:41 HbA1c (hemoglob in A1c), blood [address] (Lab), [address] [place], [address], 09/23/2022 11:20:04 CBC w/ auto diff 2022 023 KEVIN [facility] (Lab), [address] [place], [address], 09/16/2022 11:58:17 microalbu min/creat inine, mass ratio, urine [address] (Lab), [address] [place], [address], 09/23/2022 11:20:04 vitamin B12 + folate, serum or blood [address] (Lab), [address] [place], [address], 09/23/2022 11:20:05 iron + total iron-bind ing capacity (TIBC), serum [address] (Lab), [address] [place], [address], 10/04/2023 16:31:41 ferritin, serum or plasma [address] (Lab), [address] [place], [address], 10/04/2023 16:31:42 CBC w/ auto diff [address] (Lab), [address] [place], [address], 10/04/2023 16:31:41 CMP, serum or plasma [address] (Lab), [address] [place], [address], 10/04/2023 16:31:41 lipid panel, serum [address] (Lab), [address] [place], [address], 10/04/2023 16:31:41 TSH, serum or plasma [address] (Lab), [address] [place], [address], 10/04/2023 16:31:41 vitamin D, 25-hydrox y, total, serum [address] (Lab), [address] [place], [address], 10/04/2023 16:31:41 glycohemo globin, total, blood [address] (Lab), [address] [place], [address], 10/04/2023 16:31:42 microalbu min/creat inine, ratio, urine [address] (Lab), [address] [place], [address], 10/04/2023 16:31:42 vitamin B12 + folate, serum or blood [address] (Lab), [address] [place], [address], 10/04/2023 16:31:42 iron + total iron-bind ing capacity (TIBC), serum 2023 024 [facility] (Lab), [address] [place], [address], 03/21/2024 07:34:05 vitamin D, 25-hydrox y, total, serum 2023 [facility] (Lab), [address] [place], [address], 03/21/2024 07:34:05 CBC w/ auto diff 2023 [facility] (Lab), [address] [place], [address], 03/21/2024 07:34:04 CMP, serum or plasma 2023 024 [facility] (Lab), [address] [place], [address], 03/21/2024 07:34:04 TSH, serum or plasma 2023 024 [facility] (Lab), [address] [place], [address], 03/21/2024 07:34:05 T4, free, serum 2023 [facility] (Lab), [address] [place], [address], 03/21/2024 07:34:05 lipid panel, serum 2023 024 [facility] (Lab), [address] [place], [address], 03/21/2024 07:34:05 iron + total iron-bind ing capacity (TIBC), serum 2023 [facility] (Lab), [address] [place], [address], 07/03/2024 08:15:40 glycohemo globin, total, blood 2023 024 [facility] (Lab), [address] [place], [address], 07/03/2024 08:15:39 lipid panel, serum 2023 024 [facility] (Lab), [address] [place], [address], 07/03/2024 08:15:40 CBC w/ auto diff 2023 024 [facility] (Lab), [address] [place], [address], 07/03/2024 08:15:40 TSH, serum or plasma 2023 024 [facility] (Lab), [address] [place], [address], 07/03/2024 08:15:40 CMP, serum or plasma 2023 024 [facility] (Lab), [address] [place], [address], 07/03/2024 08:15:40 vitamin D, 25-hydrox y, total, serum [address] [place] [address] (Lab), [address] [place], [address], 07/03/2024 08:15:40 hepatitis C virus Ab, serum 2023 024 [facility] (Lab), [address] [place], [address], 07/03/2024 08:15:40 vitamin B12 + folate, serum or blood 2023 024 [facility] (Lab), [address] [facility] [place], [address], 07/03/2024 08:15:40 Referral gynecolog ist referral - needs wwe 2022 023 suzette Berkowitz MD, [address], [address], [place], [address], 10/04/2023 16:31:20 gynecolog ist referral - needs wwe 2022 023 suzette Berkowitz MD, [address], [address], [place], [address], 10/04/2023 16:31:22 Procedures None recorded. Surgeries None recorded. Imaging MAMMO, screening , bilateral [address], [address], [address], [place], [address], 06/20/2023 12:43:09 bone density [address], [address], [address], [place], [address], 06/20/2023 12:43:29 bone density [address] (Imaging), [address], [place], [address], 10/04/2023 16:31:29 MAMMO, diagnosti c, digital, bilateral - thickenin g- 12 oclock left breast; family hx breast ca 2022 023 [facility], [address], [address], [place], [address], 04/21/2023 16:26:24 US, breast, unilatera l - thickenin g- 12 oclock left breast; family hx breast ca 2022 023 [facility], [address], [place] [address], [place], [address], 04/25/2023 16:58:28 Medication Orders Ozempic 0.25 mg or 0.5 mg (2 mg/3 mL) subcutane ous pen injector 2022 023 [facility]Pharmacy #[id number], [address], [place], [address], 02/23/2024 12:21:28 cyanocoba emely (vit B-12) 1,000 mcg/mL injection solution [address]/Pharmacy #[id number], [address], [place], [address], 09/16/2022 10:37:58 Ozempic 1 mg/dose (4 mg/3 mL) subcutane ous pen injector 2022 023 [id number], [address], [place], [address], 12/24/2022 12:40:50 fluticaso ne propionat e 50 mcg/actua tion nasal spray,gabriel pension 2022 023 [id number], [address], [place], [address], 12/24/2022 12:40:54 cyanocoba emely (vit B-12) 1,000 mcg/mL injection solution [address]/Pharmacy #[id number], [address], [place], [address], 12/24/2022 12:13:32 cyanocoba emely (vit B-12) 1,000 mcg/mL injection solution [address]/Pharmacy #[id number], [address], [place], [address], 03/25/2023 12:35:25 Zithromax Z-Greg 250 [address] tablet [address] [id number] [address], [place], [address], 02/23/2024 12:20:37 hydrochlo rothiazid e 25 mg tablet 2023 024 [id number] [address] [place], [address], 10/04/2023 15:29:39 losartan 50 mg tablet 2023 [id number], [address] [place], [address], 10/04/2023 15:29:39 glimepiri de 2 mg tablet 2023 024 [id number], [address] [place], [address], 10/04/2023 15:29:39 metformin 1,000 mg tablet 2023 024 [id number], [address] [place], [address], 10/04/2023 15:29:38 Ozempic 0.25 mg or 0.5 mg (2 mg/3 mL) subcutane ous pen injector [address] [id number] [address] [place], [address], 02/23/2024 12:21:28 rosuvasta tin 10 mg tablet 2023 024 [facility]/Pharmacy #[id number], [address] [place], [address], 10/04/2023 15:29:38 cyanocoba emely (vit B-12) 1,000 mcg/mL injection solution 2023 024 [id number], [address], [place], [address], 10/04/2023 15:29:39 rosuvasta tin 10 mg tablet 2023 024 [id number], [address], [place], [address], 02/23/2024 12:46:42 fluticaso ne propionat e 50 mcg/actua tion nasal spray,gabriel pension 2023 024 [id number] [address] [facility], [place], [address], 02/23/2024 12:46:43 ergocalci ferol (vitamin D2) 1,250 mcg (50,000 unit) capsule 2023 024 [id number], [address] [place], [address], 02/23/2024 12:46:44 hydrochlo rothiazid e 25 mg tablet 2023 024 [id number], [address], [place], [address], 02/23/2024 12:46:42 losartan 50 mg tablet 2023 024 [id number], [address], [place], [address], 02/23/2024 12:46:43 glimepiri de 2 mg tablet 2023 024 [id number], [address], [place], [address], 02/23/2024 12:46:42 metformin 1,000 mg tablet 2023 024 [facility]armacy #[id number], [address], [place], [address], 02/23/2024 12:46:45 cyanocoba emely (vit B-12) 1,000 mcg/mL injection solution 2023 024 [id number], [address], [place], [address], 02/23/2024 12:46:42 Patient TargetsNo targets recorded. Patient Instructions Encounter Date Encounter Id Patient Instructions Last Modified By Organization Details Last Modified Time 03/25/2023 [id number] INFLUENZA VACCIN E Recommended today, but patient declined TD/TDAP Recommended today, patient declined Ordered Patient will get at local pharmacy/health department PNEUMONIA VACCINE Ordered Recommend ed today, patient declined Patient will get at local pharmacy/health department Recomm ended at age 66 SHINGLES Ordered Recommend ed today, patient declined Patient will get at local pharmacy/health department MAMMOGRAM: Last Mammogram __ Recommended today, but patient declined Ordered DEXA SCAN Recommended today, but patient declined Ordered CERVICAL SCREENING/PELVIC EXAMINATION Recommended today, but patient declined Ordered COLORECTAL SCREENING: Last Colonoscopy DEPRESSION SCREENING Negative BMI Overweight Approp riate Underweight Obesity continue your current weight loss efforts try to lose 5% of your body weight try to lose 10% of your body weight NUTRITION Heart Healthy Diet Recommendati on of a 1500 caloric intake for weight loss is advised Diabetic Diet PHYSICAL ACTIVITY minimum of 10-20 minutes of activity that causes mild breathlessness/da y minimum of 20-30 minutes activity that causes mild breathlessness/da y minimum of 30-40 minutes of activity that causes mild breathlessness/da y VISION Ordered Recommend ed today ALCOHOL USE No alcohol use Occasional/So cial Use TOBACCO USE LUNG CANCER SCREENING Non Smoker-not indicated SEXUALLY ACTIVE HEPATITIS C SCREENING Not indicated GLUCOSE SCREENING LIPID SCREENING [email or web address] Not available 03/25/2023 11:35:43 10/04/2023 [id number] Follow up in 3 months Obtain labs Prescriptions sent to pharmacy Not available 10/04/2023 15:25:37 02/23/2024 [id number] diabetic foot exam* [email or web address] Not available 03/05/2024 08:31:07 Follow up in 6 months Prescriptions sent to pharmacy Obtain labs Tests: Dexa scan Referral: Dr. 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 Referral for Re ferral needed needs wwe Referring Physician: Cristy Hercules, Internal Medicine, Encounter Date: 12/24/2022 Senior Lead Developer Referral for Re ferral needed needs wwe Referring Physician: Cristy Hercules, Internal Medicine, Encounter Date: 03/25/2023 Results Created Date Observation Date Name Description Value Unit Range Abnormal Flag Note LastModifiedBy Organization Detail LastModifiedTime 09/17/1909/16/2022 IRON/ TIBC PANEL total iron binding capacity 383 mcg/d L 265-47 5 Not Available [facility] (Lab) [address] [place], [address], 09/16/2022 11:58:10 09/17/1909/16/2022 IRON/ TIBC PANEL % transferrin saturation 13 % 20-55 low Not Available [facility] (Lab) [address] [place], [address], 09/16/2022 11:58:10 09/17/1909/16/2022 IRON/ TIBC PANEL unsaturated iron bind capacity 335 mcg/d L 126-38 2 Not Available [facility] (Lab) [address] [place], [address], 09/16/2022 11:58:10 09/17/1909/16/2022 IRON/ TIBC PANEL iron 48 mcg/d L 42-175 Not Available [facility] (Lab) [address] [place], [address], 09/16/2022 11:58:10 09/17/19 23 09/16/2022 CBC/C OMPLE TE BLD COUNT W/DIF F white blood cells 8.5 x10'3 /uL 4.2-10 .8 Not Available [facility] (Lab) [address] [place], [address], 09/16/2022 11:58:17 09/17/19 23 09/16/2022 CBC/C OMPLE TE BLD COUNT W/DIF F red blood cells 4.77 x10'6 /uL 3.80-5 .20 Not Available [facility] (Lab) [address] [place], [address], 09/16/2022 11:58:17 09/17/19 23 09/16/2022 CBC/C OMPLE TE BLD COUNT W/DIF F hemoglobin 12.5 g/dL 12.0-1 5.6 Not Available [facility] (Lab) [address] [place], [address], 09/16/2022 11:58:17 09/17/19 23 09/16/2022 CBC/C OMPLE TE BLD COUNT W/DIF F hematocrit 39.2 % 35.7-4 5.7 Not Available [facility] (Lab) [address] [place], [address], 09/16/2022 11:58:17 09/17/19 23 09/16/2022 CBC/C OMPLE TE BLD COUNT W/DIF F mean red cell volume 82.2 fL 82.0-9 9.0 Not Available [facility] (Lab) [address] [place], [address], 09/16/2022 11:58:17 09/17/19 23 09/16/2022 CBC/C OMPLE TE BLD COUNT W/DIF F mean red cell hemoglobin 26.2 pg 27.0-3 3.0 low Not Available [facility] (Lab) [address] [place], [address], 09/16/2022 11:58:17 09/17/19 23 09/16/2022 CBC/C OMPLE TE BLD COUNT W/DIF F mean RBC HGB concentratio n 31.9 g/dL 31.0-3 6.0 Not Available [facility] (Lab) [address] [place], [address], 09/16/2022 11:58:17 09/17/19 23 09/16/2022 CBC/C OMPLE TE BLD COUNT W/DIF F red cell distribution width 14.2 % 11.8-1 5.5 Not Available [facility] (Lab) [address] [place], [address], 09/16/2022 11:58:17 09/17/19 23 09/16/2022 CBC/C OMPLE TE BLD COUNT W/DIF F platelets 327 x10'3 /uL 150-40 0 Not Available [facility] (Lab) [address] [place], [address], 09/16/2022 11:58:17 09/17/19 23 09/16/2022 CBC/C OMPLE TE BLD COUNT W/DIF F mean platelet volume 11.1 fL 9.0-12 .4 Not Available [facility] (Lab) [address] [place], [address], 09/16/2022 11:58:17 09/17/19 23 09/16/2022 CBC/C OMPLE TE BLD COUNT W/DIF F neutrophils 62.9 % 39.0-7 2.0 Not Available [facility] (Lab) [address] [place], [address], 09/16/2022 11:58:17 09/17/19 23 09/16/2022 CBC/C OMPLE TE BLD COUNT W/DIF F lymphocytes 24.3 % 16.0-4 7.0 Not Available [facility] (Lab) [address] [place], [address], 09/16/2022 11:58:17 09/17/19 23 09/16/2022 CBC/C OMPLE TE BLD COUNT W/DIF F monocytes 9.6 % 5.0-12 .0 Not Available [facility] (Lab) [address] [place], [address], 09/16/2022 11:58:17 09/17/19 23 09/16/2022 CBC/C OMPLE TE BLD COUNT W/DIF F eosinophils 2.2 % 1.0-7. 0 Not Available [facility] (Lab) [address] [place], [address], 09/16/2022 11:58:17 09/17/19 23 09/16/2022 CBC/C OMPLE TE BLD COUNT W/DIF F basophils 0.6 % 0.0-2. 0 Not Available [facility] (Lab) [address] [place], [address], 09/16/2022 11:58:17 09/17/19 23 09/16/2022 CBC/C OMPLE TE BLD COUNT W/DIF F immature granulocytes 0.4 % 0.00-0 .50 Not Available [facility] (Lab) [address] [place], [address], 09/16/2022 11:58:17 09/17/19 23 09/16/2022 CBC/C OMPLE TE BLD COUNT W/DIF F neutrophils, absolute count 5.36 x10'3 /uL 1.5-8. 0 Not Available [facility] (Lab) [address] [place], [address], 09/16/2022 11:58:17 09/17/19 23 09/16/2022 CBC/C OMPLE TE BLD COUNT W/DIF F lymphocytes, absolute count 2.07 x10'3 /uL 1.07-3 .43 Not Available [facility] (Lab) [address] [place], [address], 09/16/2022 11:58:17 09/17/19 23 09/16/2022 CBC/C OMPLE TE BLD COUNT W/DIF F monocytes, absolute count 0.82 x10'3 /uL 0.29-0 .99 Not Available [facility] (Lab) [address] [place], [address], 09/16/2022 11:58:17 09/17/19 23 09/16/2022 CBC/C OMPLE TE BLD COUNT W/DIF F eosinophils, absolute count 0.19 x10'3 /uL 0.02-0 .53 Not Available [facility] (Lab) [address] [place], [address], 09/16/2022 11:58:17 09/17/19 23 09/16/2022 CBC/C OMPLE TE BLD COUNT W/DIF F basophils, absolute count 0.05 x10'3 /uL 0.01-0 .08 Not Available [facility] (Lab) [address] [place], [address], 09/16/2022 11:58:17 09/17/19 23 09/16/2022 CBC/C OMPLE TE BLD COUNT W/DIF F immature granulocytes ,absolute 0.03 x10'3 /uL 0.00-0 .05 Not Available [facility] (Lab) [address] [place], [address], 09/16/2022 11:58:17 09/17/19 23 09/16/2022 CBC/C OMPLE TE BLD COUNT W/DIF F nucleated red blood cells 0.0 % -0 Not Available [facility] (Lab) [address] [place], [address], 09/16/2022 11:58:17 09/17/19 23 09/16/2022 CBC/C OMPLE TE BLD COUNT W/DIF F NRBC# 0.00 x10'3 /uL Not Available [facility] (Lab) [address] [place], [address], 09/16/2022 11:58:17 09/17/19 23 09/16/2022 VITAM IN D 25-HY DROXY [id number] 28.0 NG/mL 30-100 low Vitam in D Statu s: Defic ient: <20 ng/mL Insuf ficie nt: 20-29 ng/mL Suffi cient : 30-10 0 ng/mL Not Available [facility] (Lab) [address] [place], [address], 09/16/2022 12:12:46 09/17/19 23 09/16/2022 T4 FREE free T4 1.23 NG/dL 0.78-2 .19 Not Available [facility] (Lab) [address] [place], [address], 09/16/2022 12:12:56 09/17/19 23 09/16/2022 LIPID PANEL cholesterol 116 mg/dL 140-19 9 low NIH SUSY NSUS RECOM MENDA TION FOR EUGENE STERO L: ADULT CHILD LOW RISK: <200 <170 BORDE RLINE : <200- 239 ----- HIGH RISK: >240 >200 Not Available [facility] (Lab) [address] [place], [address], 09/16/2022 12:19:32 09/17/19 23 09/16/2022 LIPID PANEL triglyceride s 72 mg/dL 0-150 NIH SUSY NSUS REPOR T RECOM MENDA TION FOR TRIGL YCERI TRAE: ADULT CHILD LOW RISK: <150 ----- BODER LINE: 150-1 99 ----- HIGH RISK: >200 ----- Not Available [facility] (Lab) [address] [place], [address], 09/16/2022 12:19:32 0409/16/2022 LIPID PANEL HDL cholesterol 56 mg/dL 40- Not Available [facility] (Lab) [address] [place], [address], 09/16/2022 12:19:32 09/17/19 23 09/16/2022 LIPID PANEL LDL cholesterol, calculated 46 mg/dL 0-130 NIH SUSY NSUS REPOR T RECOM MENDA TIONS FOR LDL: ADULT CHILD LOW RISK <130 <110 (OPTI MAL LDL) <100 ----- BORDE RLINE : 130-1 59 ----- HIGH RISK: >160 >130 A TRIGL YCERI DE RESUL T >400 INVAL IDATE S THE CALCU LATIO N FOR LDL FRACT IONAT ION - THE LDL RESUL T WILL NOT BE REPOR ELLEN. Not Available [facility] (Lab) [address] [place], [address], 09/16/2022 12:19:32 09/17/19 23 09/16/2022 COMPR EHENS KYLE METAB OLIC PANEL sodium 137 mmol/ L 137-14 5 Not Available [facility] (Lab) [address] [place], [address], 09/16/2022 12:19:41 09/17/19 23 09/16/2022 COMPR EHENS KYLE METAB OLIC PANEL potassium 3.8 mmol/ L 3.5-5. 1 Not Available [facility] (Lab) [address] [place], [address], 09/16/2022 12:19:41 09/17/19 23 09/16/2022 COMPR EHENS KYLE METAB OLIC PANEL chloride 102 mmol/ L 98-107 Not Available [facility] (Lab) [address] [place], [address], 09/16/2022 12:19:41 09/17/19 23 09/16/2022 COMPR EHENS KYLE METAB OLIC PANEL carbon dioxide 26 mmol/ L 22-30 Not Available [facility] (Lab) [address] [place], [address], 09/16/2022 12:19:41 09/17/19 23 09/16/2022 COMPR EHENS KYLE METAB OLIC PANEL anion gap 12.8 mmol/ L 14-22 low Not Available [facility] (Lab) [address] [place], [address], 09/16/2022 12:19:41 09/17/19 23 09/16/2022 COMPR EHENS KYLE METAB OLIC PANEL glucose 130 mg/dL 70-99 high Not Available [facility] (Lab) [address] [place], [address], 09/16/2022 12:19:41 09/17/19 23 09/16/2022 COMPR EHENS KYLE METAB OLIC PANEL BUN 19 mg/dL 8-19 Not Available [facility] (Lab) [address] [place], [address], 09/16/2022 12:19:41 09/17/19 23 09/16/2022 COMPR EHENS KYLE METAB OLIC PANEL creatinine 1.06 mg/dL 0.66-1 .25 Not Available [facility] (Lab) [address] [place], [address], 09/16/2022 12:19:41 09/17/19 23 09/16/2022 COMPR EHENS KYLE METAB OLIC PANEL GFR 53 Refer ence Range : [place] ge GFR Healt hy Adult : >60 mL/mi n/1.7 3 m2 Chron ic Kidne y Disea se: 15-60 mL/mi n/1.7 3 m2 Kidne y Failu re: <15/m L/min /1.73 m2 www.n iddk. nih.g ov The MDRD study equat ion has not been valid ated in child solomon <18 years of age; pregn ant women ; the elder ly >85 years of age; or in some racia l or ethni c subgr oups, such as Hispa nics. Outsi de the valid ated peace eters , estim ated GFR is less accur ate, requi ring clini cleve judgm ent on a case- by-ca se basis . Clini cleve inter preta tion for other races and ages must be made by the clini dmitri. The MDRD study equat ion has not been valid ated for the evalu ation of serum creat inine relat ed to nutri dima l statu s or medic ation usage . For perso ns <18 years of age, a pedia tric GFR calcu lator is avail able on the [facility] websi te: https ://ww w.kid shannon.o rg/pr ofess ional s/kdo qi/gf r_cal culat or Not Available [facility] (Lab) [address] [place], [address], 09/16/2022 12:19:41 09/17/19 23 09/16/2022 COMPR EHENS KYLE METAB OLIC PANEL alkaline phosphatase 87 U/L 38-126 Not Available [facility] (Lab) [address] [place], [address], 09/16/2022 12:19:41 09/17/19 23 09/16/2022 COMPR EHENS KYLE METAB OLIC PANEL alanine aminotransfe rase 28 U/L 0-35 Not Available [facility] (Lab) [address] [place], [address], 09/16/2022 12:19:41 09/17/19 23 09/16/2022 COMPR EHENS KYLE METAB OLIC PANEL aspartate aminotransfe rase 24 U/L 15-37 Not Available [facility] (Lab) [address] [place], [address], 09/16/2022 12:19:41 09/17/19 23 09/16/2022 COMPR EHENS KYLE METAB OLIC PANEL bilirubin, total 0.80 mg/dL 0.20-1 .30 Not Available [facility] (Lab) [address] [place], [address], 09/16/2022 12:19:41 09/17/19 23 09/16/2022 COMPR EHENS KYLE METAB OLIC PANEL calcium 9.4 mg/dL 8.4-10 .2 Not Available [facility] (Lab) [address] [place], [place], [address], 09/16/2022 12:19:41 09/17/19 23 09/16/2022 COMPR EHENS KYLE METAB OLIC PANEL total protein 7.1 g/dL 6.3-8. 2 Not Available [facility] (Lab) [address] [place], [address], 09/16/2022 12:19:41 09/17/19 23 09/16/2022 COMPR EHENS KYLE METAB OLIC PANEL albumin 4.3 g/dL 3.4-5. 0 Not Available [facility] (Lab) [address] [place], [address], 09/16/2022 12:19:41 09/17/19 23 09/16/2022 COMPR EHENS KYLE METAB OLIC PANEL globulin 2.8 g/dL 2.6-4. 2 Not Available [facility] (Lab) [address] [place], [address], 09/16/2022 12:19:41 09/17/1909/16/2022 COMPR EHENS KYLE METAB OLIC PANEL A/G ratio 1.5 ratio 1.0-2. 0 Not Available [facility] (Lab) [address] [place], [address], 09/16/2022 12:19:41 09/17/1909/16/2022 URINA LYSIS COMPL ETE/I RIS W/RFX color YELLOW Not Available [facility] (Lab) [address] [place], [address], 09/16/2022 12:22:56 09/17/1909/1609/16/2022 URINA LYSIS COMPL ETE/I RIS W/RFX appear TURBID abnormal Not Available [facility] (Lab) [address] [place], [address], 09/16/2022 12:22:56 09/17/19 23 09/16/2022 URINA LYSIS COMPL ETE/I RIS W/RFX specific gravity 1.022 1.001- 1.030 Not Available [facility] (Lab) [address] [place], [address], 09/16/2022 12:22:56 09/17/19 23 09/16/2022 URINA LYSIS COMPL ETE/I RIS W/RFX pH 5.0 pH_un its 5.0-9. 0 Not Available [facility] (Lab) [address] [place], [address], 09/16/2022 12:22:56 09/17/19 23 09/16/2022 URINA LYSIS COMPL ETE/I RIS W/RFX leukocytes >/=500 mayra/u L negati ve- abnormal Not Available [facility] (Lab) [address] [place], [address], 09/16/2022 12:22:56 09/17/19 23 09/16/2022 URINA LYSIS COMPL ETE/I RIS W/RFX nitrite NEGATI VE negati ve- Not Available [facility] (Lab) [address] [place], [address], 09/16/2022 12:22:56 09/17/19 23 09/16/2022 URINA LYSIS COMPL ETE/I RIS W/RFX protein 10 mg/dL negati ve- abnormal Not Available [facility] (Lab) [address] [place], [address], 09/16/2022 12:22:56 09/17/19 23 09/16/2022 URINA LYSIS COMPL ETE/I RIS W/RFX glucose NORMAL mg/dL normal - Not Available [facility] (Lab) [address] [place], [address], 09/16/2022 12:22:56 09/17/19 23 09/16/2022 URINA LYSIS COMPL ETE/I RIS W/RFX ketones NEGATI VE mg/dL negati ve- Not Available [facility] (Lab) [address] [place], [address], 09/16/2022 12:22:56 09/17/19 23 09/16/2022 URINA LYSIS COMPL ETE/I RIS W/RFX urobilinogen NORMAL mg/dL normal - Not Available [facility] (Lab) [address] [place], [address], 09/16/2022 12:22:56 09/17/19 23 09/16/2022 URINA LYSIS COMPL ETE/I RIS W/RFX bilirubin NEGATI VE mg/dL negati ve- Not Available [facility] (Lab) [address] [place], [address], 09/16/2022 12:22:56 09/17/19 23 09/16/2022 URINA LYSIS COMPL ETE/I RIS W/RFX blood NEGATI VE mg/dL negati ve- Not Available [facility] (Lab) [address] [place], [address], 09/16/2022 12:22:56 09/17/19 23 09/16/2022 URINA LYSIS COMPL ETE/I RIS W/RFX white blood cells 9-20 /i??h pfi?? 0-8 abnormal Not Available [facility] (Lab) [address] [place], [address], 09/16/2022 12:22:56 09/17/19 23 09/16/2022 URINA LYSIS COMPL ETE/I RIS W/RFX red blood cells 5-10 /i??h pfi?? 0-4 abnormal Not Available [facility] (Lab) [address] [place], [address], 09/16/2022 12:22:56 09/17/19 23 09/16/2022 URINA LYSIS COMPL ETE/I RIS W/RFX bacteria NONE Not Available [facility] (Lab) [address] [place], [address], 09/16/2022 12:22:56 09/17/19 23 09/16/2022 URINA LYSIS COMPL ETE/I RIS W/RFX mucous OCCASI ONAL /i??l pfi?? abnormal Not Available [facility] (Lab) [address] [place], [address], 09/16/2022 12:22:56 09/17/19 23 09/16/2022 URINA LYSIS COMPL ETE/I RIS W/RFX squamous epithelial PACKED FIELD /i??l pfi?? abnormal Not Available [facility] (Lab) [address] [place], [address], 09/16/2022 12:22:56 09/17/19 23 09/16/2022 MICRO ALBUM N RNDM W/CRE AT RATIO ur creat 142.33 mg/dL REFER ENCE RANGE NOT ESTAB LISMIRELA D FOR RANDO M URINE CREAT ININE Not Available [facility] (Lab) [address] [place], [address], 09/16/2022 12:38:10 09/17/19 23 09/16/2022 MICRO ALBUM N RNDM W/CRE AT RATIO microalbumin , urine 11.2 mg/L 0.0-16 .6 Not Available [facility] (Lab) [address] [place], [address], 09/16/2022 12:38:10 09/17/19 23 09/16/2022 MICRO ALBUM N RNDM W/CRE AT RATIO microalbumin /creatinine ratio 8 mcg/m g 0-29 THE [facility] CAN DIABE VANI ASS[facility] IATIO N DEFIN ES ABNOR MALIT IES IN ALBUM IN EXCRE TION FOLLO WS: CATEG ORY RESUL T (MCG/ MG CREAT ININE ) ANA LAURA L <30 MICRO ALBUM INURI A 30-29 9 CLINI CLEVE ALBUM INURI A > OR = 300 THE ADA RECOM MENDS THAT 2 OF 2 SPECI MENS COLLE CTED WITHI N A 3- TO 6-MON TH PERIO D BE ABNOR MAL BEFOR E CONSI AMBROCIO G A PATIE NT TO HAVE CROSS ED ONE OF THESE DIAGN OSTIC THRES HOLDS . REFER ENCE: DIABE VANI CARE, VOL. 26: S94-S , 2002 Not Available [facility] (Lab) [address] [place], [address], 09/16/2022 12:38:10 09/17/19 23 09/16/2022 TSH thyroid-stim ulating hormone 1.370 uIU/m L 0.465- 4.680 Not Available [facility] (Lab) [address] [place], [address], 09/16/2022 12:38:54 09/17/19 23 09/16/2022 LUZ MARIA TIN ferritin 58 NG/mL 11.1-2 64 Not Available [facility] (Lab) [address] [place], [address], 09/16/2022 12:40:27 09/17/19 23 09/16/2022 FOLAT E, SERUM /PLAS MA folate 5.27 NG/mL 2.76-2 0.0 Not Available [facility] (Lab) [address] [place], [address], 09/16/2022 14:06:22 09/17/19 23 09/16/2022 VITAM IN B12 (CHRISSY EMELY ) vb12 >1000 pg/mL 239-93 1 high Not Available [facility] (Lab) [address] [place], [address], 09/16/2022 12:50:29 09/17/19 23 09/16/2022 HEMOG LOBIN A1C HA1C 6.4 % 4.0-6. 0 high Diabe vani Scree renita Crite doretha: <5.7% Consi stent with absen ce of diabe vani 5.7-6 .4% Consi stent with incre ased risk for diabe vani (pred iabet es) >OR=6 .5% Consi stent with diabe vani REFER ENCE: Diabe vani Care 2016, 39(Cruz ppl.1 ):s13 -s22 Not Available [facility] ([facility]) [address] [place], [address], 09/16/2022 15:43:26 09/17/19 23 09/16/2022 CULTU RE URINE urc ===== ===== ===== ===== ===== ===== ===== ===== ===== ===== ===== ===== ===== ===== ===== ===== ===== ===== ===== ===== ===== ===== ===== ===== CULTU RE NO.: [id number] Exam Statu s: Final Exam Type: CULTU RE URINE ===== ===== ===== ===== ===== ===== ===== ===== ===== ===== ===== ===== ===== ===== ===== ===== ===== ===== ===== ===== ===== ===== ===== ===== Cultu re Repor t: Organ ism #01 Prote us mirab ilis (prom ir) Antib iotic s promi r Achie vable Achie vable (01) Dosag e Serum Level Urine Level mcg/m l mcg/m l AMIKA CHARIS 4 S 000M Ampic illin <=2 S 000M Ampic illin /Sulb actam <=2 S 000M Cefep fred <=1 S 000M Cefox itin 8 S 000M Cefta zidim e <=1 S 000M Ceftr iaxon e <=1 S 000M Cipro floxa charis <=0.2 5 S 000M Genta micin <=1 S 000M Levof loxac in <=0.1 2 S 000M Merop enem 1 S 000M Piper acill in/Ta zobac <=4 S 000M Tobra mycin <=1 S 000M Trime thopr im/Cruz lfame >=320 R 000M Cefaz marga <=4 S 000M Nitro furan toin 128 R 000M Not Available [facility] (Lab) [address] [place], [address], 09/18/2022 08:17:32 10/19/19 23 10/18/2022 URINA LYSIS COMPL ETE, IRIS color LIGHT- YELLOW Not Available [facility] (Lab) [address] [place], [address], 10/18/2022 16:31:40 10/19/19 23 10/18/2022 URINA LYSIS COMPL ETE, IRIS appear TURBID abnormal Not Available [facility] (Lab) [address] [place], [address], 10/18/2022 16:31:40 10/19/19 23 10/18/2022 URINA LYSIS COMPL ETE, IRIS specific gravity 1.017 1.001- 1.030 Not Available [facility] (Lab) [address] [place], [address], 10/18/2022 16:31:40 10/19/19 23 10/18/2022 URINA LYSIS COMPL ETE, IRIS pH 5.0 pH_un its 5.0-9. 0 Not Available [facility] (Lab) [address] [facility] [place], [address], 10/18/2022 16:31:40 10/19/19 23 10/18/2022 URINA LYSIS COMPL ETE, IRIS leukocytes 250 mayra/u L negati ve- abnormal Not Available [facility] (Lab) [address] [place], [address], 10/18/2022 16:31:40 10/19/19 23 10/18/2022 URINA LYSIS COMPL ETE, IRIS nitrite NEGATI VE negati ve- Not Available [facility] (Lab) [address] [place], [address], 10/18/2022 16:31:40 10/19/19 23 10/18/2022 URINA LYSIS COMPL ETE, IRIS protein NEGATI VE mg/dL negati ve- Not Available [facility] (Lab) [address] [place], [address], 10/18/2022 16:31:40 10/19/19 23 10/18/2022 URINA LYSIS COMPL ETE, IRIS glucose NORMAL mg/dL normal - Not Available [facility] (Lab) [address] [place], [address], 10/18/2022 16:31:40 10/19/19 23 10/18/2022 URINA LYSIS COMPL ETE, IRIS ketones NEGATI VE mg/dL negati ve- Not Available [facility] (Lab) [address] [place], [address], 10/18/2022 16:31:40 10/19/19 23 10/18/2022 URINA LYSIS COMPL ETE, IRIS urobilinogen NORMAL mg/dL normal - Not Available [facility] (Lab) [address] [place], [address], 10/18/2022 16:31:40 10/19/19 23 10/18/2022 URINA LYSIS COMPL ETE, IRIS bilirubin NEGATI VE mg/dL negati ve- Not Available [facility] (Lab) [address] [place], [address], 10/18/2022 16:31:40 10/19/19 23 10/18/2022 URINA LYSIS COMPL ETE, IRIS blood 0.2 mg/dL negati ve- abnormal Not Available [facility] (Lab) [address] [place], [address], 10/18/2022 16:31:40 10/19/19 23 10/18/2022 URINA LYSIS COMPL ETE, IRIS white blood cells 9-20 /i??h pfi?? 0-8 abnormal Not Available [facility] (Lab) [address] [place], [address], 10/18/2022 16:31:40 10/19/19 23 10/18/2022 URINA LYSIS COMPL ETE, IRIS red blood cells 0-4 /i??h pfi?? 0-4 Not Available [facility] (Lab) [address] [place], [address], 10/18/2022 16:31:40 10/19/19 23 10/18/2022 URINA LYSIS COMPL ETE, IRIS bacteria NONE Not Available [facility] (Lab) [address] [place], [address], 10/18/2022 16:31:40 10/19/19 23 10/18/2022 URINA LYSIS COMPL ETE, IRIS mucous OCCASI ONAL /i??l pfi?? abnormal Not Available [facility] (Lab) [address] [place], [address], 10/18/2022 16:31:40 10/19/19 23 10/18/2022 URINA LYSIS COMPL ETE, IRIS squamous epithelial PACKED FIELD /i??l pfi?? abnormal Not Available [facility] (Lab) [address] [facility], [place], [address], 10/18/2022 16:31:40 04/21/20 23 04/21/2023 US, olga t, unila teral No observ ation record ed. [email or web address] [facility] [address], [place], [address], 04/26/2023 10:21:22 04/21/20 23 04/21/2023 MAMMO , diagn ostic , digit al, bilat eral No observ ation record ed. [address] [facility], [place], [address], 04/25/2023 17:00:22 05/16/20 23 05/16/2023 biops y, breas t, w/ ultra sound maciel nce (PROC ) No observ ation record ed. [address], [place], [address], 05/17/2023 12:31:42 05/26/20 23 05/16/2023 biops y, breas t, w/ ultra sound maciel nce (PROC ) No observ ation record ed. [address] (Imaging) [address] [place] [address] [address]te [facility], [place], [address], 05/30/2023 14:43:06 08/10/19 24 08/09/2023 MAMMO , diagn ostic , digit al, bilat eral No observ ation record ed. [address], [place], [address], 09/22/2023 09:34:24 08/22/19 24 08/22/2023 US, olga t, unila teral No observ ation record ed. [address], [place], [address], 09/22/2023 09:39:14 04/03/20 24 09/14/2023 biops y, breas t, w/ ultra sound maciel nce (PROC ) No observ ation record ed. [email or web address] (Imaging) [address] [place] [address] [address], [place], [address], 12/27/2023 16:29:58 04/02/20 24 04/02/2024 imagi ng/di agnos tic resul t No observ ation record ed. [address], [place], [address], 04/02/2024 15:20:22 06/29/19 25 06/29/2024 imagi ng/di agnos tic resul t No observ ation record ed. [address], [place], [address], 06/29/2024 14:32:29 Result Notes None recorded. 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 Active 2022 Connie Garcia APRN [address], [address], [place], [address] , [employer] 4 07:57:33 Menopaus al flushing 138982561 Active 2022 BLANKA Shaw, [place] [facility] 3 09:19:55 Microalb uminuria 447470012 Active 2022 Claire Ceron MA null, [place] [facility] 3 09:19:55 Feeling irritabl e 22319565 Active 2022 BLANKA Shaw, [place] [facility] 3 09:19:55 Basal cell carcinom a of face 940114182 Active 2022 BLANKA Shaw, [place] [facility] 3 09:19:55 Type 2 diabetes mellitus 08091688 Active 2022 BLANKA Shaw, [place] [facility] 3 09:19:55 Type 2 diabetes mellitus without complica tion 075500414 Active 2022 BLANKA Shaw, [place] - [facility] 3 09:19:55 Pain of right shoulder joint 88477751112 885826 Active 2022 BLANKA Shaw, [place] - [facility] 3 09:19:55 Acute urinary tract infectio n 574091021 Active 2022 BLANKA Shaw, [place] - [facility] 3 09:19:55 Iron deficien cy anemia 72563259 Active 2022 BLANKA Shaw, [place] [facility] 3 09:19:55 Anemia 691057760 Active 2022 Connie Garcia, [employer] [address] [facility], [address], [address] , [facility] 4 07:57:20 Acute serous otitis media of left ear 53970434974 35929 Active 2022 BLANKA Shaw, [place] [facility] 3 09:19:54 Upper respirat ory infectio n 41930294 Active 2022 BLANKA Shaw, [facility] 3 09:19:55 Hyperkal emia 49608392 Active 2021 BLANKA Shaw, [facility] 3 09:19:55 Constipa tion 88900256 Active 2017 BLANKA Shaw, [facility] 3 09:19:55 External hordeolu m 2232607 Completed Not Available [facility] 3 03:07:03 Acute sinusiti s 04286998 Active 2021 Claire Ceron BLANKA surjit, [facility] 3 09:19:55 Backache 743889939 Completed Not Available [facility] 3 03:07:03 Blood glucose outside referenc e range 954759571 Completed Not Available [facility] 3 03:07:04 Plantar fasciiti s 530725621 Completed Not Available [facility] 3 03:07:04 Edema 309375968 Active Claire Ceron BLANKA surjit, [facility] 3 09:19:55 Chest pain 14948742 Completed Not Available [facility] 3 03:07:04 Dysfunct ion of urinary bladder 88834170 Active 2020 overacti ve Connie Garcia APRN [address] [facility], [address] [address], [place], [address] , [facility] 4 07:57:23 Obesity 038914715 Active BLANKA Shaw, [facility] 3 09:19:55 Upper respirat ory infectio n 07780131 Completed Rea eddy, [facility] 3 14:58:23 Breast tenderne ss 59028583 Completed Not Available [facility] 3 03:07:04 Hyperlip idemia 84695202 Active 2021 Connie Garcia APRN [address], [address], [place], [address] , [facility] 4 07:57:42 Urinary tract infectio us disease 77897575 Completed Not Available [facility] 3 03:07:05 Hemorrho ids 76174706 Active 2017 BLANKA Shaw, [facility] [employer] [facility] 3 09:19:55 Diabetes mellitus 24966262 Active 2018 Connie Garcia APRN [address], [address], [place], [address] , [facility] 4 07:57:35 Breast lump 33874690 Active neg biopsy BLANKA Shaw, [place] - [facility] 3 09:19:55 Conjunct ivitis 8824613 Active 2017 BLANKA Shaw, [facility] 3 09:19:55 Mass of left breast 67135428631 691596 Active 2022 BLANKA Shaw, [facility] 3 09:19:55 Mammogra phic mass of left breast 56131514226 673844 Active 2022 Claire Ceron MA null, [place] [facility] 3 09:19:55 Cellulit is of axilla 61180374 Active Connie Garcia APRN [address], [address], [place], [address] , [facility] 4 12:22:00 Spasm 99410151 Active Connie Garcia APRN [address], [address], [place], [address] , [facility] - [facility] 4 12:22:01 Viral disease 02355210 Active Connie Garcia APRN [address], [address], [place], [address] , [facility] - [facility] 4 12:23:56 Notes:Some problems listed i n Document: #[id number] could not be added to this patient's chart. Please review this document and add these problems to the patient's chart manually as needed. Problem Notes None recorded. Procedures Surgical History Date Name Laterality Status Provider Name and Address Organization Details Recorded Time 09/14/19 24 lumpectomy of left breast completed TEVIN Rowan [place] - [facility] 10/04/2023 15:02:50 07/29/19 22 excision of basal cell carcinoma completed Not Available [facility] 08/11/2022 03:00:19 delivery completed Not Available [facility] 08/11/2022 03:00:19 delivery completed Not Available [facility] 08/11/2022 03:00:19 Laparoscopic cholecystectomy completed Not Available [facility] 08/11/2022 03:00:19 [employer] Surgery completed Not Available [facility] 08/11/2022 03:00:19 Hysterectomy, Partial completed Not Available [facility] 08/11/2022 03:00:19 delivery completed Not Available [facility] 08/11/2022 03:00:19 Imaging Results Imaging Date Name Status LastModified by Organiz ation Details LastModified Time 04/21/2023 US, breast, unilateral completed [address] - Breast Ctr [address], [place], [address], 04/26/2023 10:21:22 04/21/2023 MAMMO, diagnostic, digital, bilateral completed [address], [address], 04/25/2023 17:00:22 05/16/2023 biopsy, breast, w/ ultrasound guidance (PROC) completed [address], [address], 05/17/2023 12:31:42 05/16/2023 biopsy, breast, w/ ultrasound guidance (PROC) completed [address] (Imaging) [address] [place] [address], [address], 05/30/2023 14:43:06 08/09/2023 MAMMO, diagnostic, digital, bilateral completed [address] - Breast Ctr [address], [place], [address], 09/22/2023 09:34:24 08/22/2023 US, breast, unilateral completed [address], [address], 09/22/2023 09:39:14 09/14/2023 biopsy, breast, w/ ultrasound guidance (PROC) completed [address] (Imaging) [address] [place] [address], [address], 12/27/2023 16:29:58 04/02/2024 imaging/diagnos tic result active [address], [address], 04/02/2024 15:20:22 06/29/2024 imaging/diagnos tic result active [address], [address], 06/29/2024 14:32:29 Procedure Notes None recorded. Medical Equipment None Reported. Allergies Allergen ID Allergen Name Allergen Category Reaction Reaction Severity Criticality Documentation Date Start Date Code Code System Note Provider Name and Address Organization Details Recorded Time 5661 Substance with sulfonami de structure and antibacte rial mechanism of action (substanc e) medicatio n Not available Not available Not available 08/11/2022 52716 8003 SNOMED Not Available [facility] 3 03:16:34 5662 fluconazo le medicatio n rash Not available Not available 08/11/2022 4450 RxNorm Not Available [facility] 3 03:16:34 Medications Name Sig Start Date Stop Date Status Note LastModified by Organization Details LastModified Time losartan 50 mg tablet TAKE 1 TABLET BY MOUTH EVERY DAY 2023 active Not Available Not Available Not Avai lable cyclobenz aprine 10 mg tablet TAKE 1 TABLET BY MOUTH EVERY 8 HOURS 10/03 completed Not Available Not Available Not Available amoxicill in 500 mg capsule TAKE 1 CAPSULE BY MOUTH THREE TIMES DAILY FOR 7 DAYS 11/14 completed Not Available Not Available Not Available metformin 500 mg tablet medicati on:metfo rmin 500 mg tablet d ose:0.0 route:P O freque ncy: 02/22 completed Not Available Not Available Not Available anastrozo le 1 mg tablet TAKE 1 TABLET BY MOUTH EVERY DAY active Not Available Not Available No t Available prednison e 10 mg tablet 02/22 completed Not Available Not Available Not Available Klor-Con 10 mEq tablet,ex tended release active Not Available Not Available Not Available oxybutyni n chloride ER 10 mg tablet,ex tended release 24 hr 01/20 completed Not Available Not Available Not Available azithromy charis 250 mg tablet TAKE 2 TABLETS BY MOUTH TODAY, THEN TAKE 1 TABLET DAILY FOR 4 DAYS DIRECTED 02/22 completed Not Available Not Available Not Available ibuprofen 800 mg tablet Take 1 tablet 3 times a day by oral route. active Not Available Not Available No t Available fluconazo le 150 mg tablet TAKE 1 TABLET BY MOUTH EVERY 3 DAYS FOR 3 DOSES 09/16 completed Not Available Not Available Not Available benzonata te 200 mg capsule Take 1 capsule 3 times a day by oral route as needed. active Not Available Not Available No t Available hydrocodo ne 5 mg-acetam inophen 325 mg tablet Take 1 tablet 3 times a day by oral route as needed. active Not Available Not Available No t Available prednison e 20 mg tablet TK 2 TS PO QD FOR 5 DAYS active Not Available Not Available No t Available Accu-Chek Softclix Lancets TEST BID active Not Available Not Available Not Available phentermi ne 37.5 mg tablet TAKE 1 TABLET BY MOUTH DAILY IN THE MORNING 09/16 completed Not Available Not Available Not Available acetamino phen 300 mg-codein e 30 mg tablet TK 1 T PO Q 4-6 H PRN 11/18 completed Not Available Not Available Not Available ciproflox acin 250 mg tablet TK 1 T PO Q 12 H 08/10 completed Not Available Not Available Not Available ciproflox acin 500 mg tablet TAKE 1 TABLET TWICE A DAY BY ORAL ROUTE FOR 5 DAYS, FOR UTI. 02/22 completed Not Available Not Available Not Available sulfameth oxazole 800 mg-trimet hoprim 160 mg tablet TAKE 1 TABLET BY MOUTH TWICE A DAY X7 DAYS 10/03 completed Not Available Not Available Not Available omeprazol e 40 mg capsule,d elayed release 11/18 completed Not Available Not Available Not Available tramadol 50 mg tablet Take 1 tablet every 6 hours by oral route. active Not Available Not Available No t Available amoxicill in 500 mg tablet Take 1 tablet 3 times a day by oral route for 7 days. 11/14 completed Not Available Not Available Not Available glimepiri de 2 mg tablet TAKE 1 TABLET BY MOUTH DAILY WITH FIRST MEAL OF THE DAY 2023 active Not Available Not Available Not Avai lable glimepiri de 1 mg tablet TAKE 1 TABLET BY MOUTH TWICE DAILY 08/10 completed has stopped taking Not Available Not Available Not Available oxycodone -acetamin ophen 5 mg-325 mg tablet 0.5 - 1 TABLET ORALLY EVERY 6 HOURS NEEDED FOR PAIN 10/03 completed Not Available Not Available Not Available alprazola m 0.5 mg tablet TK 1 T PO Q 12 H PRN 11/11 completed Not Available Not Available Not Available amoxicill in 875 mg tablet TK 1 T PO Q 12 H FOR 10 DAYS 07/23 completed Not Available Not Available Not Available benzonata te 100 mg capsule TK 1 C PO Q 8 H PRN 08/10 completed Not Available Not Available Not Available cephalexi n 500 mg capsule TAKE 1 CAPSULE BY MOUTH TWICE DAILY FOR 1 WEEK 08/31 completed Not Available Not Available Not Available cyanocoba emely (vit B-12) 1,000 mcg/mL injection solution Inject 1 mL every month by subcutan eous route. 2023 active Not Available Not Available Not Avai lable oseltamiv ir 75 mg capsule TK 1 C PO QD FOR 10 DAYS 08/10 completed Not Available Not Available Not Available ferrous sulfate 325 mg (65 mg iron) tablet Take 1 tablet every day by oral route. 10/03 completed Not Available Not Available Not Available metformin 1,000 mg tablet TAKE 1 TABLET BY MOUTH TWICE A DAY 2023 active Not Available Not Available Not Avai lable nystatin 100,000 unit/gram topical cream APPLY TOPICALL Y TO THE AFFECTED AREA TWICE DAILY NEEDED 10/03 completed Not Available Not Available Not Available oxybutyni n chloride ER 5 mg tablet,ex tended release 24 hr TAKE 1 TABLET BY MOUTH EVERY DAY active Not Available Not Available No t Available hydroxyzi ne HCl 25 mg tablet TK 1 T PO TID PRN active Not Available Not Available No t Available hydrochlo rothiazid e 25 mg tablet TAKE 1 TABLET BY MOUTH EVERY DAY 2023 active Not Available Not Available Not Avai lable ergocalci ferol (vitamin D2) 1,250 mcg (50,000 unit) capsule Take 1 capsule every week by oral route, for vitamin D deficien cy. active Not Available Not Available No t Available ibuprofen 600 mg tablet TAKE 1 TABLET BY MOUTH EVERY 6 HOURS NEEDED FOR PAIN 10/03 completed Not Available Not Available Not Available methylpre dnisolone 4 mg tablets in a dose pack TAKE DIRECTED 02/22 completed Not Available Not Available Not Available albuterol sulfate HFA 90 mcg/actua tion aerosol inhaler Inhale 2 puffs every 4 hours by inhalati on route. 10/03 completed Not Available Not Available Not Available hydrocort isone 2.5 % topical ointment APPLY TO AFFECTED AREAS ON FACE TWICE DAILY FOR 2 TO 3 WEEKS 10/03 completed Not Available Not Available Not Available cefdinir 300 mg capsule TAKE 1 CAPSULE BY MOUTH EVERY 12 HOURS FOR 7 DAYS 12/24 completed Not Available Not Available Not Available fluticaso ne propionat e 50 mcg/actua tion nasal spray,[facility] [place] 2 sprays every day by intranas al route as needed. active Not Available Not Available No t Available loratadin e 10 mg tablet TK 1 T PO QD 11/29 completed Not Available Not Available Not Available naproxen 500 mg tablet TAKE 1 TABLET BY MOUTH TWICE A DAY WITH FOOD 10/03 completed Not Available Not Available Not Available amoxicill in 875 mg-potass ium clavulana te 125 mg tablet TAKE 1 TABLET BY MOUTH EVERY 12 HOURS FOR 7 DAYS 02/22 completed Not Available Not Available Not Available cyclobenz aprine 5 mg tablet Take 1 tablet 3 times a day by oral route. active Not Available Not Available No t Available rosuvasta tin 5 mg tablet medicati on:rosuv astatin 5 mg tablet d ose:0.0 route:P O freque ncy: 02/22 completed Not Available Not Available Not Available rosuvasta tin 10 mg tablet TAKE 1 TABLET BY MOUTH EVERY DAY 2023 active Not Available Not Available Not Avai lable bupropion HCl XL 300 mg 24 hr tablet, extended release TAKE 1 TABLET BY MOUTH EVERY DAY 09/16 completed Not Available Not Available Not Available bupropion HCl XL 150 mg 24 hr tablet, extended release Take 1 tablet every day by oral route in the morning. 10/01 completed Not Available Not Available Not Available nitrofura ntoin monohydra te/macroc rystals 100 mg capsule TAKE 1 CAPSULE BY MOUTH EVERY 12 HOURS 10/03 completed Not Available Not Available Not Available Vesicare 5 mg tablet Take 1 tablet every day by oral route. active Not Available Not Available No t Available ibuprofen prn 10/03 completed Not Available Not Available Not Available ferrous gluconate 324 mg (38 mg iron) tablet TAKE 2 TABLETS BY MOUTH ONCE DAILY 10/03 completed Not Available Not Available Not Available hydrochlo rothiazid e 12.5 mg tablet medicati on:hydro chloroth iazide 12.5 mg tablet d ose:0.0 route:P O freque ncy: 02/22 completed Not Available Not Available Not Available Accu-Chek Sofia Plus test strips TEST BID active Not Available Not Available Not Available Jardiance 10 mg tablet Take 1 tablet every day by oral route. 11/25 completed Not Available Not Available Not Available Trulicity 1.5 mg/0.5 mL subcutane ous pen injector ADMINIST ER 1.5 MG UNDER THE SKIN EVERY WEEK 08/31 completed Not Available Not Available Not Available Trulicity 0.75 mg/0.5 mL subcutane ous pen injector ADM 0.5 ML SC Q WK active Not Available Not Available No t Available Anusol-HC 2.5 % topical cream with perineal applicato r APPLY A THIN LAYER TO THE AFFECTED AREA(S) BY TOPICAL ROUTE 2-4 TIMESDAI LY 11/07 completed Not Available Not Available Not Available Ozempic 0.25 mg or 0.5 mg (2 mg/1.5 mL) subcutane ous pen injector active Not Available Not Available Not Available Trulicity 3 mg/0.5 mL subcutane ous pen injector Inject 3 mg every week by subcutan eous route. 09/16 completed Not Available Not Available Not Available Trulicity 4.5 mg/0.5 mL subcutane ous pen injector Inject 4.5 mg every week by subcutan eous route. 12/24 completed Not Available Not Available Not Available Ozempic 1 mg/dose (4 mg/3 mL) subcutane ous pen injector medicati on:Ozemp ic 1 mg/dose (4 mg/3 mL) Pen Injector dose:0. 0 route:S UBCUT fr equency: active Not Available Not Available No t Available Mounjaro 2.5 mg/0.5 mL subcutane ous pen injector Inject 2.5 mg every week by subcutan eous route. 09/16 completed Not Available Not Available Not Available Ozempic 0.25 mg or 0.5 mg (2 mg/3 mL) subcutane ous pen injector INJECT 0.5 MG SUBCUTAN EOUSLY EVERY WEEK 02/22 completed Not Available Not Available Not Available Vitals Date Recorded Body height Body mass index (BMI) Body weight Body temperature Heart rate Oxygen saturation Oxygen saturation in Arterial blood by Pulse oximetry Systolic blood pressure Diastolic blood pressure Provider Name and Address Organization Details Last Updated DateTime 3 175.26 cm 44.7 kg/m2 900453. 49 g 97.4 [degF] 78 /min 98 % 98 % 132 mm[Hg] 76 mm[Hg] Claire Ceron MA [facility] [employer] [facility] 3 10:08:32 Date Recorded Body height Body mass index (BMI) Body weight Body temperature Heart rate Oxygen saturation Oxygen saturation in Arterial blood by Pulse oximetry Systolic blood pressure Diastolic blood pressure Provider Name and Address Organization Details Last Updated DateTime 3 175.26 cm 46.1 kg/m2 883939. 82 g 97.6 [degF] 68 /min 98 % 98 % 128 mm[Hg] 80 mm[Hg] Claire Ceron MA [facility] [employer] [facility] 3 11:38:56 Date Recorded Body height Body mass index (BMI) Body weight Body temperature Heart rate Oxygen saturation Oxygen saturation in Arterial blood by Pulse oximetry Systolic blood pressure Diastolic blood pressure Provider Name and Address Organization Details Last Updated DateTime 3 175.26 cm 45.5 kg/m2 332281. 45 g 97.8 [degF] 78 /min 98 % 98 % 132 mm[Hg] 80 mm[Hg] Claire Ceron MA [facility] [employer] [facility] 3 10:13:24 Date Recorded Body height Body mass index (BMI) Body weight Body temperature Heart rate Systolic blood pressure Diastolic blood pressure Provider Name and Address Organization Details Last Updated DateTime 4 175.26 cm 45.3 kg/m2 460328. 86 g 97.6 [degF] 78 /min 114 mm[Hg] 76 mm[Hg] TEVIN Rowan [facility] [employer] [facility] 4 15:05:39 Date Recorded Body height Body mass index (BMI) Body weight Body temperature Heart rate Oxygen saturation Oxygen saturation in Arterial blood by Pulse oximetry Systolic blood pressure Diastolic blood pressure Provider Name and Address Organization Details Last Updated DateTime 4 175.26 cm 46.2 kg/m2 046995. 41 g 97.5 [degF] 78 /min 96 % 96 % 120 mm[Hg] 72 mm[Hg] Windy Khan MA [facility] [employer] [facility] 4 12:18:22 Social History Question Answer Notes LastModified by Organizat ion Details LastModified Time Tobacco Smoking Status Never Smoker Not Available [facility] 08/11/2022 02:41:39 Do You Have An Advance Directive? No MIGRATION.12333 [id number] Information not available 08/11/2022 What Is Your Level Of Alcohol Consumption? Occasional MIGRATION.50775 13377 Information not available 08/11/2022 Are You Blind Or Do You Have Difficulty Seeing? No MIGRATION.87422 21235 Information not available 08/11/2022 What Is Your Level Of Caffeine Consumption? Heavy MIGRATION.78929 90413 Information not available 08/11/2022 How Much Tobacco Do You Chew? None MIGRATION.38376 36777 Information not available 08/11/2022 In The 14 Days Before Symptom Onset, Have You Had Close Contact With A Laboratory-confi rmed COVID-19 While That Case Was Ill? No MIGRATION.16943 54925 Information not available 08/11/2022 In The 14 Days Before Symptom Onset, Have You Had Close Contact With A Person Who Is Under Investigation For COVID-19 While That Person Was Ill? No MIGRATION.38825 31501 Information not available 08/11/2022 Are You Deaf Or Do You Have Serious Difficulty Hearing? No MIGRATION.11930 50282 Information not available 08/11/2022 What Type Of Diet Are You Following? REGULAR MIGRATION.80141 87562 Information not available 08/11/2022 Which Illicit Or Recreational Drugs Have You Used? None MIGRATION.03465 25220 Information not available 08/11/2022 Do You Or Have You Ever Used E-cigarettes Or Vape? Never Used Electronic Cigarettes MIGRATION.39765 27365 Information not available 08/11/2022 What Is The Highest Grade Or Level Of School You Have Completed Or The Highest Degree You Have Received? 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 No MIGRATION.63219 49530 Information not available 08/11/2022 Are There Any Guns Present In Your Home? Yes MIGRATION.70942 99829 Information not available 08/11/2022 Do You Use Insect Repellent Routinely? No MIGRATION.25205 39961 Information not available 08/11/2022 Where Do You Live? [place]LevelHouse MIGRATION.00041 96861 Information not available 08/11/2022 What Was The Date Of Your Most Recent Tobacco Screening? 02/23/2024 Information not available 02/23/2024 How Many Children Do You Have? 3 Information not available 02/23/2024 Do You Have Any Pets? No MIGRATION.42529 86499 Information not available 08/11/2022 What Is Your Relationship Status? MIGRATION.62336 41034 Information not available 08/11/2022 Do You Use Your Seat Belt Or Car Seat Routinely? Yes MIGRATION.30301 61736 Information not available 08/11/2022 Do You Have Smoke And Carbon Monoxide Detectors In Your Home? Yes MIGRATION.62239 85311 Information not available 08/11/2022 Are You Passively Exposed To Smoke? No MIGRATION.19185 27234 Information not available 08/11/2022 Do You Or Have You Ever Used Smokeless Tobacco? Never Used Smokeless Tobacco MIGRATION.74601 15476 Information not available 08/11/2022 Are There Any Smokers In Your House? No MIGRATION.21557 73121 Information not available 08/11/2022 How Much Tobacco Do You Smoke? No MIGRATION.30254 90609 Information not available 08/11/2022 Do You Feel Stressed (tense, Restless, Nervous, Or Anxious, Or Unable To Sleep At Night)? [id number] MIGRATION.95675 91817 Information not available 08/11/2022 Do You Use Any Illicit Or Recreational Drugs? No Information not available 02/23/2024 Do You Use Sunscreen Routinely? Yes MIGRATION.97458 09807 Information not available 08/11/2022 How Many Years Have You Smoked Tobacco? 0 MIGRATION.83162 85549 Information not available 08/11/2022 Have You Recently Traveled Abroad? No MIGRATION.40348 40509 Information not available 08/11/2022 Do You Have Any Dietary Restrictions? No MIGRATION.61219 29982 Information not available 08/11/2022 Do You Or Have You Ever Used Any Other Forms Of Tobacco Or Nicotine? No MIGRATION.38352 14124 Information not available 08/11/2022 Sex: Unknown Functional Status Question Answer Note LastModified by Organizat ion Details LastModified Time Do you have difficulty walking or climbing stairs? No MIGRATION.[id number] 026 Information not available 08/11/2022 Do you have transportation difficulties? No MIGRATION.2859550 026 Information not available 08/11/2022 Are you able to walk? YESWOREST MIGRATION.6703674 026 Information not available 08/11/2022 Do you have difficulty doing errands alone? No MIGRATION.2595179 026 Information not available 08/11/2022 Are you able to care for yourself? Yes MIGRATION.8456537 026 Information not available 08/11/2022 Do you have difficulty dressing or bathing? No MIGRATION.1187610 026 Information not available 08/11/2022 What is your exercise level? None MIGRATION.2669333 026 Information not available 08/11/2022 Mental Status Question Answer Note LastModified by Organizat ion Details LastModified Time Do you have difficulty concentrating, remembering or making decisions? No MIGRATION.[id number] 6 Information not available 08/11/2022 Family History Relationship Description Onset Age of this Age Resolved Age Notes LastModified by Organization Details LastModified Time Paternal Grandmother Heart disease MIGRATION.892 [id number] Not available 08/11/2022 03:00:21 Paternal Grandmother Diabetes mellitus MIGRATION.280 [id number] Not available 08/11/2022 03:00:21 Maternal Grandmother Heart disease MIGRATION.851 [id number] Not available 08/11/2022 03:00:21 Maternal Grandmother Diabetes mellitus MIGRATION.563 [id number] Not available 08/11/2022 03:00:21 Mother Diabetes mellitus MIGRATION.131 [id number] Not available 08/11/2022 03:00:21 Mother Malignant neoplastic disease MIGRATION.332 [id number] Not available 08/11/2022 03:00:21 Sister Diabetes mellitus MIGRATION.672 [id number] Not available 08/11/2022 03:00:21 Brother Diabetes mellitus MIGRATION.725 [id number] Not available 08/11/2022 03:00:21 Brother Depressive disorder bipola r MIGRATION.745 [id number] Not available 08/11/2022 03:00:21 Father Malignant neoplastic disease MIGRATION.108 [id number] Not available 08/11/2022 03:00:21 Medical History Condition Response NERVE DISEASE N BLINDNESS N RHEUMATIC FEVER N KIDNEY STONES N BLADDER PROBLEMS N OTHER # 1 N POLIO N LUNG DISEASE/DISORDER N COPD N RADIATION / CHEMOTHERAPY N Other # 2 N BLOOD DISEASES N SURGERY N EAR OR HEARING PROBLEMS N MUMPS N DEPRESSION (INCLUDING POST ) N BOWEL PROBLEMS N STROKE/TIA N ULCERS N BENIGN PROSTATIC HYPERPLASIA N MEASLES N MYOCARDIAL INFARCTION N OBESITY Y GERD/NAUSEA N ANEURYSM N URINARY/BLADDER/KIDNEY PROBLEMS Y CORONARY ARTERY DISEASE (CAD) N INPATIENT PSYCH CARE N ADDICTION CONCERNS N Impotence N ENDOMETRIOSIS N USE OF BLOOD THINNERS N SKIN PROBLEMS N GASTROINTESTINAL DISORDER N PERIPHERAL VASCULAR DISEASE N MUSCLE,JOINT OR BONE PROBLEMS N GASTROINTESTINAL BLEEDING N BLOOD CLOTS N ASTHMA N CATARACTS N ERECTILE DYSFUNCTION N VARICOSITIES N GI PROBLEMS N Low Testosterone N INFERTILITY N AIDS/HIV N LIVER DISEASE N MALE HYPOGONADISM N HYPERTENSION N Deficiency Y ANXIETY DISORDER N BLOOD TRANSFUSION N ANEMIA/BLOOD DISORDER N CHRONIC EAR INFECTIONS N BRONCHITIS N TUBERCULOSIS N GLAUCOMA N FOOT PROBLEM N DIVERTICULITIS N SLEEP APNEA N CHICKENPOX N INFECTIOUS DISEASE N PROSTATE N HEART ARRHYTHMIA N INSOMNIA N HIGH CHOLESTEROL / HYPERLIPIDEMIA N EYE PROBLEMS N HYPERTHYROIDISM N NEUROLOGICAL PROBLEMS N EDEMA N CHRONIC PAIN SYNDROME N HYPOTHYROIDISM N CAROTID BLOCKAGE N CONSTIPATION N BACK / NECK PROBLEMS N HAVE YOU BEEN HOSPITALIZED OR SEEN IN [facility] IN THE PAST YEAR ? N ATHEROSCLEROSIS N BREAST PROBLEMS N DIALYSIS N ECZEMA N OSTEOPOROSIS N ARTHRITIS N APPENDICITIS N DIABETES, TYPE Y BAD TEETH N ENT N HEARTBURN / REFLUX N AUTISM SPECTRUM DISORDER (ASD) N HEPATITIS / LIVER DISEASE N PULMONARY DISEASE N GOUT N SLEEP DISORDER N ALZHEIMER'S DISEASE N Brain Problems N DEMENTIA N HERPES N SEIZURES/EPILEPSY N HEADACHES/MIGRAINES N VASCULAR DISEASE N PACEMAKER N Blood Disorder N DIZZINESS N HEART DISEASE/HEART PROBLEMS N KIDNEY DISEASE N MULTIPLE SCLEROSIS N CANCER: SPECIFY N CARDIAC ARRHYTHMIA N ANESTHESIA COMPLICATIONS N ATRIAL FIBRILLATION N Gall Stones N PULMONARY EMBOLISM N AUTOIMMUNE DISEASE N Gynecological History Statement/Question Response How many live births 3 Date of Last Pap Date of Last Mammogram Current Control Method Hysterectom y Date of LMP Obstetrics History GPAL:G 3 P 3 0 0 3 Type Value Multiple Births 0 Full Term 3 Induced 0 Spontaneous 0 Premature 0 Living 3 Ectopics 0 Total 3 Immunizations Vaccine Type Date Status Note Provider Nam e and Address Organization Details Recorded Time COVID-19, mRNA, LNP-S, PF, 30 mcg/0.3 mL dose 08/07/2020 completed Connie Garcia APRN [address] [facility], [facility] [address], [place], [address], [employer] [facility] [employer] 12/28/2023 12:22:52 COVID-19, mRNA, LNP-S, PF, 30 mcg/0.3 mL dose 07/17/2020 raheem Garcia APRN [address] [facility], [address], [place], [address], [employer] [facility] [email or web address] 12/28/2023 12:22:52 Past Encounters Encounter ID Performer Location Encounter Start Date Encounter Closed Date Diagnosis/Indication Diagnosis SNOMED-CT Code Diagnosis ICD10 Code Diagnosis Note [id number] [facility] [address] [facility] [address] [place] [address] 09/25/2020 00:00:00 09/25/2020 16:49:51 [id number] [facility] [address] [place] [address] 11/25/2020 00:00:00 11/25/2020 14:11:06 [id number] [facility] [address] [place] [address] 01/08/2021 00:00:00 01/08/2021 20:35:31 [id number] [facility] [address] [place] [address] 02/19/2021 00:00:00 02/19/2021 19:07:09 [id number] [facility] [address] [place] [address] 03/31/2021 00:00:00 03/31/2021 13:02:26 [id number] [facility] [address] [place] [address] 05/01/2021 00:00:00 05/01/2021 13:58:36 [id number] [facility] [address] [facility] [address] [place] [address] 06/11/2021 00:00:00 06/11/2021 17:23:07 [id number] [facility] [address] [place] [address] 07/10/2021 00:00:00 07/10/2021 13:39:12 [id number] [facility] [address] [place] [address] [address] [facility] [address] [place] [address] 08/31/2021 00:00:00 08/31/2021 17:13:10 [id number] [facility] [address] [place] [address] [address] [facility] [address] [place] [address] 10/01/2021 00:00:00 10/01/2021 10:56:14 [id number] [facility] [address] [place] [address] [address] [address] 10/12/2021 00:00:00 10/12/2021 15:02:20 [id number] [facility] [address] [address] 01/19/2022 00:00:00 01/19/2022 13:55:41 [id number] [facility] [address] [address] 02/22/2022 00:00:00 02/22/2022 13:03:09 [id number] [facility] [address] [place] [address] [address] [address] 05/11/2022 00:00:00 05/11/2022 13:13:00 [id number] BING Mccullough [facility] [address] [address] 09/16/2022 09:57:11 09/16/2022 10:36:24 Hyperlipidemia 06077696 E78.5 on rosuvastat in Vitamin D deficiency 347 87490 E55.9 on supplement Iron deficiency 80528408 E61.1 on iron Essential hypertension 57068331 I10 on losartan, HCTZ Cobalamin deficiency 190 712825 E53.8 on B12 injections monthly Menopausal flushing 1983 09763 N95.1 s/p labs- get appt with [facility], has been referred multiple times Screening mammography 24 322983 Z12.31 Has order -again encouraged her to schedule this Basal cell carcinoma of face 438417959 C44.310 following derm- Dr. Portillo History of polyp of colon 867788404 Z86.010 next due 06/2025 Microalbuminuria 6782872 06 R80.9 mild, continue tight sugar control Feeling irritable 615673 07 R45.4 she stopped the wellbutrin , did not feel it helpsdoes not want to try any other mood medscall office if any change in mood or behaviorsh e declines psychiatry referral today Noncomplia nce with medication regimen 959089182 Z91.14 again we have discussed the risks of her choosing not to complete her medical screenings , up to and including cancer and/or deathI have also discussed with her that it is difficult for me to appropriat nelly manage her medication s when she does not get her regular lab work done Obesity 480462409 E66.9 recommend healthy, well balanced mealsfocus on lean meats, fresh vegetables , fresh fruits, whole grainsredu ce fast/proce ssed foods or eating out to no more than 1-2 times per weekaim to get 30 min of exercise most days of the week- walking is a great choice 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 814255428 E11.9 on metformin, trulicity, glimepirid eRequestin g to see if she can get Ozempic coveredI did give her a sample box of 1.5mg Trulicity (no other strengths available in samples) to use for 2 weeks while we wait to see if we can get the Ozempic covered, if they won't cover, will have to stay on the Trulicity could not tolerate the Jardiance 2/2 urinary sx we continued discussion re: diet/exerc ise- recommend she avoid eating out, aim for 150g carbs/day spilt across meals, recommend [email or web address] teja to track food, 30 min of exercise most days of the week with goal of at least 150 min/week Postmenopausal state 764 07988 Z78.0 again ordered, encouraged [id number] ANCELMO Mccullough-Ro[facility] [address] [facility], [address] [place] [address] 12/24/2022 11:30:58 12/24/2022 12:12:58 Hyperlipidemia 40447456 E78.5 on rosuvastat in Vitamin D deficiency 347 57499 E55.9 on supplement Iron deficiency 12268253 E61.1 on iron Essential hypertension 77180981 I10 on losartan, HCTZ Cobalamin deficiency 190 389158 E53.8 on B12 injections monthlydoe s not want PO supplement as insurance will not pay for it, does not want to buy OTC Menopausal flushing 1984 72218 N95.1 s/p labs- get appt with [facility], has been referred multiple times Screening mammography 24 788858 Z12.31 Has order -again encouraged her to schedule this Basal cell carcinoma of face 373817353 C44.310 following derm- Dr. Portillo History of polyp of colon 072772498 Z86.010 next due 06/2025 Microalbuminuria 6782103 06 R80.9 mild, continue tight sugar control Feeling irritable 780535 07 R45.4 she stopped the wellbutrin , did not feel it helpsdoes not want to try any other mood medscall office if any change in mood or behaviorsh e declines psychiatry referral today Noncomplia nce with medication regimen 645189295 Z91.148 again we have discussed the risks of her choosing not to complete her medical screenings , up to and including cancer and/or deathI have also discussed with her that it is difficult for me to appropriat nelly manage her medication s when she does not get her regular lab work done Obesity 333073229 E66.9 recommend healthy, well balanced mealsfocus on lean meats, fresh vegetables , fresh fruits, whole grainsredu ce fast/proce ssed foods or eating out to no more than 1-2 times per weekaim to get 30 min of exercise most days of the week- walking is a great choice 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 125651551 E11.9 on metformin, glimepirid e, increase ozempic pt is aware of side effects, risks, benefitspt denies any personal or family history of MEN II or MTC, denies and personal history of pancreatit ispt knows to call the office if any severe n/v or abdominal pain could not tolerate the Jardiance 2/2 urinary sx we continued discussion re: diet/exerc ise- recommend she avoid eating out, aim for 150g carbs/day spilt across meals, recommend [email or web address] teja to track food, 30 min of exercise most days of the week with goal of at least 150 min/week Postmenopausal state 764 33894 Z78.0 again ordered, encouraged Referral needed [id number] 9 Z76.89 Acute sero us otitis media of left ear [id number] 805528 H65.02 start flonase, OTC zyrtec or claritinca ll office if no improvemen t after meds [id number] Cristy Hercules, ANCELMO-C [facility] [address] [place] [address] 03/25/2023 09:57:01 03/25/2023 10:37:01 Adult health examination 533845197 Z00.01 Hyperlipidemia 29600222 E78.5 on rosuvastat in Vitamin D deficiency 347 94600 E55.9 on supplement Iron deficiency 57491589 E61.1 on iron Essential hypertension 09172233 I10 on losartan, HCTZ Cobalamin deficiency 190 134605 E53.8 on B12 injections monthlydoe s not want PO supplement as insurance will not pay for it, does not want to buy OTC Menopausal flushing 1983 44894 N95.1 s/p labs- get appt with [facility], has been referred multiple times Basal cell carcinoma of face 112982767 C44.310 following derm- Dr. Portillo History of polyp of colon 302769420 Z86.010 next due 06/2025 Microalbuminuria 7707301 06 R80.9 mild, continue tight sugar control Feeling irritable 247168 07 R45.4 she stopped the wellbutrin , did not feel it helpsdoes not want to try any other mood medscall office if any change in mood or behaviorsh e declines psychiatry referral today Noncomplia nce with medication regimen 287660268 Z91.148 again we have discussed the risks of her choosing not to complete her medical screenings , up to and including cancer and/or deathI have also discussed with her that it is difficult for me to appropriat nelly manage her medication s when she does not get her regular lab work done Obesity 422486232 E66.9 recommend healthy, well balanced mealsfocus on lean meats, fresh vegetables , fresh fruits, whole grainsredu ce fast/proce ssed foods or eating out to no more than 1-2 times per weekaim to get 30 min of exercise most days of the week- walking is a great choice 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 824203296 E11.9 on metformin, glimepirid e, ozempic pt is aware of side effects, risks, benefitspt denies any personal or family history of MEN II or MTC, denies and personal history of pancreatit ispt knows to call the office if any severe n/v or abdominal pain could not tolerate the Jardiance 2/2 urinary sx we continued discussion re: diet/exerc ise- recommend she avoid eating out, aim for 150g carbs/day spilt across meals, recommend [email or web address] teja to track food, 30 min of exercise most days of the week with goal of at least 150 min/week Again we discussed that in order to lose weight, she must created calorie deficit. If she is not tracking her calories she is not able to know where she is with calories. Recommend that she get an teja and track her calories for 1 week, when she realizes where she has been eating, she can drop those calories by 500 to create a small deficit. We again discussed the recommenda tions for exercise and weight training. I stressed that the Ozempic is a tool, it is not going to work for weight loss if she does not do anything with her nutrition strategies . It is doing a good job controllin g her diabetes and her A1c on her last labs was much improved. Postmenopausal state 764 28473 Z78.0 again ordered, encouraged Referral needed 34716881 9 Z76.89 Mass of left breast 1224 888791 1794325 N63.20 none felt today, but will order diagnostic mammogram and u/s as she does have family history of breast cancer Depression screening 171 353870 Z13.31 [id number] Connie Garcia APRN [facility] [address] [facility] [address] 10/04/2023 14:51:59 10/04/2023 15:31:53 Cobalamin deficiency 455145931 E53.8 Essential hypertension 58198616 I10 Hyperlipidemia 22195610 E78.5 Iron deficiency 22838058 E61.1 Vitamin D deficiency 347 79813 E55.9 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 410653281 E11.9 Acute sinusitis 34321246 J01.90 [id number] Connie Garcia APRN [facility] [address] [facility] [address] 02/23/2024 12:03:15 02/23/2024 12:49:18 Diabetes mellitus 31691970 E11.9 Hyperlipidemia 98380300 E78.5 Iron deficiency 03608467 E61.1 Vitamin D deficiency 347 29170 E55.9 Cobalamin deficiency 190 237214 E53.8 Acute sero us otitis media of left ear 8326819418 356706 H65.02 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 146059435 E11.9 Essential hypertension 45966880 I10 Hepatitis C screening 41 6507997 Z11.59 Health Concerns Section Related Observation LastModified by Organization Detai ls LastModified Time None Recorded Concern Status LastModified by Organization Details LastModified Time None Recorded Advance Directives Directive N: Payers Encounter Date Sequence Insurance Name Policy Number Policy Card Covered Member ID Card Member ID Guarantor Name 09/16/2022 1 [place] [id number] Hui A Victor Hugo [id number] Jennifer Victor Hugo 09/16/2022 2 [facility] ON OR AFTER 12/11/20 (MEDICAID REPLACEMENT - HMO) Jennifer Victor Hugo [id number] Jennifer Victor Hugo 12/24/2022 1 [place] [id number] Hui A Victor Hugo [id number] Jennifer Victor Hugo 12/24/2022 2 [facility] ON OR AFTER 12/11/20 (MEDICAID REPLACEMENT - HMO) Jennifer Victor Hugo [id number] Jennifer Victor Hugo 03/25/2023 1 [place] [id number] Hui A Victor Hugo [id number] Jennifer Victor Hugo 03/25/2023 2 [facility] ON OR AFTER 12/11/20 (MEDICAID REPLACEMENT - HMO) Jennifer Victor Hugo [id number] Jennifer Victor Hugo 10/04/2023 1 [place] [id number] Hui A Victor Hugo [id number] Jennifer Victor Hugo 10/04/2023 2 [facility] - [facility] ON OR AFTER 20 (MEDICAID REPLACEMENT - HMO) Jennifer Victor Hugo [id number] Jennifer Victor Hugo 02/23/2024 1 [place] [id number] Hui A Victor Hugo [id number] Jennifer Victor Hugo 02/23/2024 2 [facility] - [facility] ON OR AFTER 20 (MEDICAID REPLACEMENT - HMO) Jennifer Gay [id number] Jennifer Gay Notes Date Note Type Note Provider Name and Address Organization Details Recorded Time 09/16/2022 text/html Jennifer present s today for follow-up. She missed her last appointment. She still has not gotten her mammogram her bone density. She needs new orders for these. She did get her colonoscopy done in June. She had multiple polyps all of which were tubular adenomas. She is due for a repeat in 3 years. We did discuss those results today. She reports she has been having difficulty getting up her Trulicity. It has been back ordered. We had tried to switch her to Mounjaro, but her secondary insurance would not pay for it. She is requesting to try to switch to Ozempic. She has not been checking her blood sugars at home. She has been taking her other diabetes medications.She does continue to eat out for most of her meals. She is not getting any exercise. We again talked about nutrition exercise and lifestyle changes to help with both her blood sugar and her weight. Her mood is stable off the Wellbutrin. She denies any SI or HI today. She continues to follow with dermatology for the basal cell carcinoma. She is status post Mohs procedure. She still has not gone to [facility] for her WWE. She has been referred multiple times. She has not been coming in for her B12 shots. She would like to get 1 today. She is due for labs. Cristy Hercules, COMMERCIAL PILOT-C [address] [facility], [facility] [address], [place], [address], [facility] [employer] 09/16/2022 11:15:51 12/24/2022 text/html Jennifer present s today for follow-up. She did get her colonoscopy done. She reports she did have an appointment for her mammogram and DEXA but she ended up missing that. She plans to reschedule that next week. She still has not gotten an appointment with the returns supervisor despite multiple referrals from me. She has gained about 10 lb. She is not tracking her nutrition are getting any exercise like we discussed previously. She does eat out at least once per day. She tells me she did switch her sugared sodas to diet but she has not noticed much different in her weight. She does eat a high carb, high process diet. She is tolerating the Ozempic without issue and is requesting to go up on the dose. She has not been coming in to get her B12 shots. I did offer her pills instead but her insurance will not pay for those and she does not want to purchase some [id number]. She will instead continue to come in for her B12 injections. Her mood remains stable off of mood medication. She denies any SI or HI today. Her blood pressures been well controlled at home. She complains today of left ear fullness. Denies any pain, fever, or drainage. BING Mccullough [address], [address], [place], [address], [employer] 12/24/2022 15:04:56 03/25/2023 text/html Jennifer present s today for follow-up. She is also due for her annual wellness exam. She is still has not done her mammogram her bone density or seen a summer counselor. I have been ordering these repeatedly for the past several years for her. Today, she reports that she intermittently feels a lump in her left breast. She reports is at the top of her breast above the nipple and areola complex about 12:00 p.m.. She reports today she cannot feel the area. She reports it feels like a thickened area, she is not sure if it is a lump or not. She does have family history of breast cancer in her sister. No known injuries, no redness or skin changes. She reports she is struggling to lose weight. We have previously talked about tracking nutrition and creating a calorie deficit. She has not been doing that. She has also not been getting any exercise. She has cut back on soda and switch to diet. She has not had any side effects with her medication. She is due for labs. She declines flu shot today. She wants to get her B12 shot today. BING Mccullough [address], [address], [place], [address], [employer] 03/25/2023 11:36:35 10/04/2023 text/html Jennifer present s today to establish care. Patient states that she recently had a lumpectomy in left breast with 3 lymph nodes removed. She states that it came back as cancer but she is waiting for the grading process. 03/25/2023Jennifer presents today for follow-up. She is also due for her annual wellness exam. She is still has not done her mammogram her bone density or seen a summer counselor. I have been ordering these repeatedly for the past several years for her. Today, she reports that she intermittently feels a lump in her left breast. She reports is at the top of her breast above the nipple and areola complex about 12:00 p.m.. She reports today she cannot feel the area. She reports it feels like a thickened area, she is not sure if it is a lump or not. She does have family history of breast cancer in her sister. No known injuries, no redness or skin changes. She reports she is struggling to lose weight. We have previously talked about tracking nutrition and creating a calorie deficit. She has not been doing that. She has also not been getting any exercise. She has cut back on soda and switch to diet. She has not had any side effects with her medication. She is due for labs. She declines flu shot today. She wants to get her B12 shot today. Connie Garcia, SANFORIZER [address] [facility], [address], [place], [address], [place] [facility] 10/04/2023 15:29:49 02/23/2024 text/html Jennifer present s today for 3 month follow up. She states that she is 6 weeks out from ringing the abdi on her cancer treatment. She states that she feels better but would like her labs done. She also states that she was put on a new medication by her oncologist. 10/04/2023Jennifer presents today to establish care. Patient states that she recently had a lumpectomy in left breast with 3 lymph nodes removed. She states that it came back as cancer but she is waiting for the grading process. 03/25/2023Jennifer presents today for follow-up. She is also due for her annual wellness exam. She is still has not done her mammogram her bone density or seen a summer counselor. I have been ordering these repeatedly for the past several years for her. Today, she reports that she intermittently feels a lump in her left breast. She reports is at the top of her breast above the nipple and areola complex about 12:00 p.m.. She reports today she cannot feel the area. She reports it feels like a thickened area, she is not sure if it is a lump or not. She does have family history of breast cancer in her sister. No known injuries, no redness or skin changes. She reports she is struggling to lose weight. We have previously talked about tracking nutrition and creating a calorie deficit. She has not been doing that. She has also not been getting any exercise. She has cut back on soda and switch to diet. She has not had any side effects with her medication. She is due for labs. She declines flu shot today. She wants to get her B12 shot today. Connie Garcia, SANFORIZER [address] [facility], [facility] [address], [place], [address], [facility] 02/23/2024 12:47:33 OBGyn Episode No OBEpisode recorded.
== END 2024-06-29 10:14 | disposition home or self-care (01) ==
PROVIDERS: PCP Internal Medicine; Visit Provider Internal Medicine Hematology & Oncology
DX: N63.15 Unspecified lump in the right breast, overlapping quadrants (principal); N63.13 Unspecified lump in the right breast, lower outer quadrant; N63.25 Unspecified lump in the left breast, overlapping quadrants; Z85.3 Personal history of malignant neoplasm of breast; Z90.12 Acquired absence of left breast and nipple
CPT/HCPCS: 76641; 77062; 77066; G0279

== ENCOUNTER 2024-07-18 07:37 | Outpatient (CLI) | payer BC, OTHER, SELFPAY ==
--- NOTE | ~2024-07-18 | MMUS_ITS ---
MM post biopsy diagnostic LT, US breast biopsy LT w image, US breast cyst asp RT EXAMINATION: US GUID ED NEEDLE BIOPSY WITH VACUUM ASSISTANCE DATE: 07/18/2024 10:24 UNIVERSITY TUTOR INDICATION: Bilateral breast masses seen on recent examination. Ultrasound-guided core biopsy is req uested to evaluate for malignancy. BREAST PARENCHYMAL COMPOSITION: Dense: The breasts are heterogeneously dense, which may obscure small masses TECHNIQUE AND FINDINGS: The risks and potential benefits of the procedure were discussed with the patient, and written inform ed consent was obtained. After sterile preparation of the breasts, 1% lidocaine was utilized for loc al anesthesia. 1% lidocaine with epinephrine was used for deep anesthesia. Right breast: An irregular shaped cyst is identified at 6:00, 1 cm from the nipple. The right breast was prepped in the usual sterile manner and local anesthesia obtained with lidocaine. Subsequently a 19-gauge needle was advanced into the cyst without complication. 2 cc of clear fluid was obtained wit hout complication with complete resolution of the mass, consistent with benign cyst. The lesion ident ified in the right breast at 7:00, 4 cm from the nipple was not demonstrated on the current study. Left breast: A 10G vacuum-assisted biopsy gun needle was advanced through to the outer edge of the re gion of interest from a superior approach utilizing sonographic guidance. A total of 4 tissue core s amples were obtained through the lesion. An Inrad tissue marker clip was then placed at the biopsy s ite. Hemostasis was achieved. The patient tolerated procedure well and there was no evidence of immediate complication. The patien t was given verbal instructions partly is from the department. Left breast mammograms to document ti ssue marker clip placement. The tissue samples were submitted to surgical pathology for histologic an alysis. IMPRESSION: 1. Successful ultrasound-guided vacuum-assisted biopsy of left breast mass with post procedure mammo gram for marker placement. Please refer to pathology report for histologic analysis. 2: Successful ultrasound-guided aspiration of right breast cyst. Reviewed, dictated and finalized at location B. ERSITY TUTOR IMPRESSION: 1. Successful ultrasound-guided vacuum-assisted biopsy of left breast mass wit h post procedure mammogram for marker placement. Please refer to pathology repo rt for histologic analysis. 2: Successful ultrasound-guided aspiration of right breast cyst. IMPRESSION: 1. Successful ultrasound-guided vacuum-assisted biopsy of left breast mass wit h post procedure mammogram for marker placement. Please refer to pathology repo rt for histologic analysis. 2: Successful ultrasound-guided aspiration of right breast cyst.
--- OUTSIDE RECORDS SUMMARY | 2024-07-18 07:39 | XMS_ITS | Encounter Summary ---
Author Organization [facility] Address [address] [place] [address] Care Team Providers Care Chain Repairer Name Role Phone Joni Walker MD Primary Care Provider [phone] Encounter Details Date Type Department Care Team (Latest Contact Info) Description 01/23/2007 Outpatient Historical [facility] Primary Care - [address] [place] [address] Joni Walker MD [address] [facility] [address] [address] Hematuria (Primary Dx) Social History Tobacco Use Types Packs/Day Years Used Date Smoking Tobacco: Never Assessed Comments Unknown Sex and Gender Information Value Date Recorded Sex Assigned at Not on file Legal Sex Female 4:38 AM DOUGH PUNCHER Gender Identity Not on file Sexual Orientation Not on file documented as of this encounter Plan of Treatment Upcoming Encounters Date Type Department Care Team (Late st Contact Info) Description 08/28/2024 10:15 AM CDT Office Visit [facility] Oncology and Hematology - [place] [place] [address] Diogo Benítez MD [address] [facility] [address] [place] [address] documented as of this encounter Procedures Procedure Name Priority Date/Time Associated Diagnosis Comments URINALYSIS WITH REFLEX CULTURE Routine 01/23/2007 2:04 PM CDT URINALYSIS W/REFLEX MICROSCOPIC Routine 01/23/2007 2:04 PM CDT documented in this encounter Results * (ABNORMAL) URINALYSIS (01/23/2007 2:04 PM CDT) COLOR UA Yellow INTERFACE SYSTEM CLARITY UA Clear Clear INTERFACE SYSTEM SPECIFIC GRAVITY UA 1.014 1.001 - 1.035 INTERFACE SYSTEM PH UA 6.5 5.0 - 8.0 INTERFACE SYSTEM LEUKOCYTE ESTERASE UA Trace(A) Negative INTERFACE SYSTEM NITRITE UA Negative Negative INTERFACE SYSTEM PROTEIN UA Negative Negative INTERFACE SYSTEM GLUCOSE UA Negative Negative INTERFACE SYSTEM KETONES UA Negative Negative INTERFACE SYSTEM UROBILINOGEN UA <1 <=1 mg/dL INTE RFACE SYSTEM BILIRUBIN UA Negative Negative INTERFA CE SYSTEM BLOOD UA 3+(A) Negative INTERFACE SYSTEM WBC UA 1 0 - 5 /HPF INTERFACE SYSTEM RBC UA >100(H) 0 - 4 /HPF INTERFACE SYSTEM EPITHELIAL CELLS, URINE 5-10 /HPF INTERFACE SYSTEM 01/23/2007 2:04 PM CDT Joni Walker MD URINE ORDERABLES Edited Performing Organization Address [facility] Phone Number INTERFACE SYSTEM Refer to clinic/hospital department * URINALYSIS WITH REFLEX CULTURE (01/23/2007 2:04 PM CDT) URINE CULTURE ORDER Culture ordered INTERFACE SYSTEM Comment: Criteria for a reflex culture include one or more of the following: ??Abn ormal nitrite, leukocyte esterase, WBCs or RBCs. ??Lack of qualifying criteria does not exclude the possiblity of a urinary tract infection. ??Dilute urine, drug interference, etc. may decrease the sensitivity of the criteria analytes. 01/23/2007 2:04 PM CDT Joni Walker MD URINE ORDERABLES Edited Performing Organization Address [facility] Phone Number INTERFACE SYSTEM Refer to clinic/hospital department documented in this encounter Visit Diagnoses Diagnosis Hematuria- Primary documented in this encounter Care Teams Chain Repairer Relationship Specialty Start Date End Date Joni Walker MD [address] [facility] [address] [address] PCP - General 03/01/00 documented as of this encounter
--- OUTSIDE RECORDS SUMMARY | 2024-07-18 07:39 | XMS_ITS | Encounter Summary ---
Author Organization [facility] Address [address] [place] [address] Care Team Providers Care Gauge Inspector Name Role Phone Joni Walker MD Primary Care Provider [phone] Encounter Details Date Type Department Care Team (Late st Contact Info) Description 02/27/2001 Outpatient Historical [facility] Primary Care - [address] [place] [address] Joni Walker MD [address] [facility] [address] [address] Social History Tobacco Use Types Packs/Day Years Used Date Smoking Tobacco: Never Assessed Comments Unknown Sex and Gender Information Value Date Recorded Sex Assigned at Not on file Legal Sex Female 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 NEEDLE BOARD REPAIRER Gender Identity Not on file Sexual Orientation Not on file documented as of this encounter Plan of Treatment Upcoming Encounters Date Type Department Care Team (Late st Contact Info) Description 08/28/2024 10:15 AM CDT Office Visit [facility] Oncology and Hematology - [place] [address] [place] [address] Diogo Benítez MD [address] [facility] [address] [place] [address] documented as of this encounter Visit Diagnoses Not on filedocumented in this encounter Care Teams Gauge Inspector Relationship Specialty Start Date End Date Joni Walker MD [address] [facility] [address] [address] PCP - General 03/01/00 documented as of this encounter
--- OUTSIDE RECORDS SUMMARY | 2024-07-18 07:39 | XMS_ITS | Encounter Summary ---
Author Organization [facility] Address [address] [place] [address] Care Team Providers Care Sign Board Erector Name Role Phone Joni Walker MD Primary Care Provider [phone] Encounter Details Date Type Department Care Team (Late st Contact Info) Description 01/23/2007 Outpatient Historical [facility] Primary Care - [address] [place] [address] Joni Walker MD [address] [facility] [address] [address] Social History Tobacco Use Types Packs/Day Years Used Date Smoking Tobacco: Never Assessed Comments Unknown Sex and Gender Information Value Date Recorded Sex Assigned at Not on file Legal Sex Female 4:38 AM SPLICER HELPER Gender Identity Not on file Sexual Orientation Not on file documented as of this encounter Last Filed Vital Signs Vital Sign Reading Time Taken Comments Blood Pressure 112/80 01/23/2007 1:45 PM CDT Pulse - - Temperature 36.9 ??C (98.5 ??F) 01/23/2007 1:45 PM CD T Respiratory Rate - - Oxygen Saturation - - Inhaled Oxygen Concentration - - Weight 117 kg (258 lb) 01/23/2007 1:45 PM CDT Height - - Body Mass Index - - documented in this encounter Plan of Treatment Upcoming Encounters Date Type Department Care Team (Late st Contact Info) Description 08/28/2024 10:15 AM CDT Office Visit [facility] Oncology and Hematology - [place] [address] [facility] [address] [place] [address] Diogo Benítez MD [address] [facility] [address] [place] [address] documented as of this encounter Visit Diagnoses Not on filedocumented in this encounter Care Teams Sign Board Erector Relationship Specialty Start Date End Date Joni Walker MD [address] [facility] [address] [address] PCP - General 03/01/00 documented as of this encounter
--- OUTSIDE RECORDS SUMMARY | 2024-07-18 07:39 | XMS_ITS | Encounter Summary ---
Author Organization [facility] Address [address] [place] [address] Care Team Providers Care Yarn Examiner Skeins Name Role Phone Joni Walker MD Primary Care Provider [phone] Encounter Details Date Type Department Care Team (Late st Contact Info) Description 03/06/2001 Outpatient Historical [facility] Primary Care - [address] [place] [address] Joni Walker MD [address] [facility] [address] [address] Social History Tobacco Use Types Packs/Day Years Used Date Smoking Tobacco: Never Assessed Comments Unknown Sex and Gender Information Value Date Recorded Sex Assigned at Not on file Legal Sex Female 4:38 AM TECHNICAL PROJECT COORDINATOR Gender Identity Not on file Sexual Orientation Not on file documented as of this encounter Plan of Treatment Upcoming Encounters Date Type Department Care Team (Late st Contact Info) Description 08/28/2024 10:15 AM CDT Office Visit [facility] Oncology and Hematology - [place] [address] [place] [address] Diogo Benítez MD [address] [facility] [address] [place] [address] documented as of this encounter Visit Diagnoses Not on filedocumented in this encounter Care Teams Yarn Examiner Skeins Relationship Specialty Start Date End Date Joni Walker MD [address] [facility] [address] [address] PCP - General 03/01/00 documented as of this encounter
--- OUTSIDE RECORDS SUMMARY | 2024-07-18 07:39 | XMS_ITS | Encounter Summary ---
Author Organization [facility] Address [address] [place] [address] Care Team Providers Care Paper Pattern Folder Name Role Phone Joni Walker MD Primary Care Provider [phone] Encounter Details Date Type Department Care Team (Latest Contact Info) Description 02/27/2001 Outpatient Historical [facility] Reynaldo Thomas Closed fracture of shaft of radius (alone) (Primary Dx) Social History Tobacco Use Types Packs/Day Years Used Date Smoking Tobacco: Never Assessed Comments Unknown Sex and Gender Information Value Date Recorded Sex Assigned at Not on file Legal Sex Female 4:38 AM PATHOLOGY TECHNOLOGIST Gender Identity Not on file Sexual Orientation Not on file documented as of this encounter Plan of Treatment Upcoming Encounters Date Type Department Care Team (Late st Contact Info) Description 08/28/2024 10:15 AM CDT Office Visit [facility] Oncology and Hematology - [place] [address] [facility] [address] [place] [address] Diogo Benítez MD 2[address] [facility] [address] [place] [address] documented as of this encounter Visit Diagnoses Diagnosis Closed fracture of shaft of radius (alone)- Primary documented in this encounter Care Teams Paper Pattern Folder Relationship Specialty Start Date End Date Joni Walker MD [address] [facility] [address] [address] PCP - General 03/01/00 documented as of this encounter
--- OUTSIDE RECORDS SUMMARY | 2024-07-18 07:39 | XMS_ITS | Encounter Summary ---
Author Organization [facility] Address [address] [place] [address] Care Team Providers Care Dynamite Packing Machine Operator Name Role Phone Joni Walker MD Primary Care Provider [phone] Encounter Details Date Type Department Care Team (Late st Contact Info) Description 07/20/2007 Orders Only [facility] Primary Care - [facility] [address] [place] [address] [place] [address] Yue Morrell MD [address] [facility] [address] [place] [address] Social History Tobacco Use Types Packs/Day Years Used Date Smoking Tobacco: Never Assessed Comments Unknown Sex and Gender Information Value Date Recorded Sex Assigned at Not on file Legal Sex Female 4:38 AM MAINSPRING FORMER BRACE END Gender Identity Not on file Sexual Orientation Not on file documented as of this encounter Progress Notes * Yue Morrell MD - 10/25/2007 11:15 AM CDT TEMPERATURE: 98.4??f Oral BLOOD PRESSURE: 100/70 Left Arm Sitting WEIGHT: 254lbs NURSE NAME: Stella Galeas N ALLERGIES: Allergies were reviewed. TOBACCO USE Patient does not currently use tobacco. MEDICATIONS: Medication list current. CHIEF COMPLAINT Patient complains of fever, chest congestion, shortness of breath, cough. HISTORY: HISTORY: HISTORY OF PRESENT ILLNESS: UPPER RESPIRATORY: The symptoms have not changed a great deal recently. The upper respiratory symptoms began approximately 2 days ago. The patient has chest congestion, has symptoms of chest pain, sputum is yellow, symptoms include fatigue, symptoms include fever, symptoms include generalized aches, symptoms include headache, symptoms include loss of appetite, no symptoms of nasal congestion, bilateral earache, no symptoms of nausea, symptoms include shortness of breath. PHYSICAL EXAMINATION: EYES: EARS, NOSE, MOUTH AND THROAT: EARS: Tympanic membranes shiny without retraction. Canals unremarkable. Hearing grossly normal. NOSE (AND SINUS): TURBINATES RED BILATERALLY, TURBINATES SWOLLEN BILATERALLY. ORAL: Inspection of gums, lips, palate, and teeth normal. No scars, lesions, or masses. Oral mucosaunremarkable with non-inflamed posterior pharynx. RESPIRATORY: RALES BILATERALLY. CARDIOVASCULAR: CARDIAC: Regular rhythm. No murmurs, rubs, or gallops. ASSESSMENT/PLAN: 466.0-BRONCHITIS ACUTE MEDICATIONS: LEVAQUIN ORAL TABLET 500 MG, 1 Every Day, 10 Dispensed, status: CONTINUED, 07/20/2007. GUAIFENESIN ORAL TABLET 12 HR 600 MG, one- two p.o. BID prn cough, 40 Dispensed, status: NEW PRESCRIPTION, 07/20/2007. CHERATUSSIN AC ORAL SYRUP 100-10 MG/5ML FLUIDOUNCES, two teaspoons every four to six hours as needed, 8 Dispensed, status: NEW PRESCRIPTION, 07/20/2007. LAB ORDERS: Order number: [id number] Test Ordered: XRAY CHEST (2 VIEWS) RETURN VISIT : Instructed to call if not improving. Electronically Signed by: Yue Morrell MD on July documented in this encounter Plan of Treatment Upcoming Encounters Date Type Department Care Team (Late st Contact Info) Description 08/28/2024 10:15 AM CDT Office Visit [facility] Oncology and Hematology - [place] [address] [facility] [address] [place] [address] Diogo Benítez MD [address] [facility] [address] [place] [address] documented as of this encounter Visit Diagnoses Not on filedocumented in this encounter Care Teams Dynamite Packing Machine Operator Relationship Specialty Start Date End Date Joni Walker MD [address] [place] [address] [address] PCP - General 03/01/00 documented as of this encounter
--- OUTSIDE RECORDS SUMMARY | 2024-07-18 07:39 | XMS_ITS | Encounter Summary ---
Author Organization [facility] Address [address] [place] [address] Care Team Providers Care Macadam Raker Name Role Phone Joni Walker MD Primary Care Provider [phone] Encounter Details Date Type Department Care Team (Late st Contact Info) Description 01/20/2007 Orders Only [facility] Primary Care - [facility] [address] [facility] [address] [place] [address] Join Walker MD [address] [facility] [address] [address] Social History Tobacco Use Types Packs/Day Years Used Date Smoking Tobacco: Never Assessed Comments Unknown Sex and Gender Information Value Date Recorded Sex Assigned at Not on file Legal Sex Female 4:38 AM REGULATORY COMPLIANCE COORDINATOR Gender Identity Not on file Sexual Orientation Not on file documented as of this encounter Plan of Treatment Upcoming Encounters Date Type Department Care Team (Late st Contact Info) Description 08/28/2024 10:15 AM CDT Office Visit [facility] Oncology and Hematology - [place] [address] [place] [address] Diogo Benítez MD [address] [facility] [address] [place] [address] documented as of this encounter Visit Diagnoses Not on filedocumented in this encounter Care Teams Macadam Raker Relationship Specialty Start Date End Date Joni Walker MD [address] [facility] [place] [address] [phone] PCP - General 03/01/00 documented as of this encounter
--- OUTSIDE RECORDS SUMMARY | 2024-07-18 07:39 | XMS_ITS | Encounter Summary ---
Author Organization [facility] Address [address] [place] [address] Care Team Providers Care Folded Cloth Taper Name Role Phone Joni Walker MD Primary Care Provider [phone] Encounter Details Date Type Department Care Team (Late st Contact Info) Description 01/23/2007 Orders Only [facility] Primary Care - [address] [place] [address] Joni Walker MD [address] [facility] [address] [address] Social History Tobacco Use Types Packs/Day Years Used Date Smoking Tobacco: Never Assessed Comments Unknown Sex and Gender Information Value Date Recorded Sex Assigned at Not on file Legal Sex Female 4:38 AM BRAILLE TYPIST Gender Identity Not on file Sexual Orientation Not on file documented as of this encounter Progress Notes * Joni Walker MD - 10/31/2007 12:40 PM CDT WEIGHT: 258lbs BLOOD PRESSURE: 112/80 Right Arm Sitting TEMPERATURE: 98.5??f Oral NURSE NAME: Magy Vasquez ALLERGIES: No known drug allergies. TOBACCO USE Patient does not currently use tobacco. MEDICATIONS: Medication list current. CHIEF COMPLAINT Here for follow up evaluation. on UTI, pt states she has not gotten any better and cannot sleep HISTORY: Jennifer is here because of UTI symptoms. She had some zohaib hematuria on Tuesday and she went to the lab and dropped off a urine specimen. That specimen is only growing scant amounts of group B strep. She has been taking Macrodantin for three days. She has intense pain today with a lot of blood clots expressed and she thinks that maybe she passed a stone. She had a kidney stone about twoyears ago. PHYSICAL EXAMINATION: She is a little bit tearful because of her pain last night. but states all ofthat is relieved. Her back exam is normal. Her abdominal exam is normal. ASSESSMENT/PLAN: 599.7-HEMATURIA ASSESSMENT: It sounds like the patient may have just passed a kidney stone. I gave her a prescription for Vicodin in case the symptoms recur. I told her to go to the emergency room if she has worsening problems, otherwise, will need to do a CT scan of her abdomen. She will complete her antibiotics,although it doesn't sound like she had much of an infection. She will call for an update or problems and will consider a urology referral if need be. MEDICATIONS: MACROBID ORAL CAPSULE CONVENTIONAL 100 MG, 1 po bid, 10 Dispensed, status: CONTINUED, 01/23/2007. VICODIN ORAL TABLET 5-500 MG, 1 Every Six Hours, As Needed, 20 Dispensed, status: NEW PRESCRIPTION,01/23/2007. LAB ORDERS: Order number: [id number] Test Ordered: URINALYSIS WITH REFLEX CULTURE 2220 RETURN VISIT : Patient instructed to call in 3 days if not improving. Electronically Signed by: Joni Walker MD on January documented in this encounter Plan of Treatment Upcoming Encounters Date Type Department Care Team (Late st Contact Info) Description 08/28/2024 10:15 AM CDT Office Visit [facility] Oncology and Hematology - [place] 2[address] [facility] 200 [place] [address] Diogo Benítez MD [address] [facility] [address] [place] [address] documented as of this encounter Visit Diagnoses Not on filedocumented in this encounter Care Teams Folded Cloth Taper Relationship Specialty Start Date End Date Joni Walker MD [address] [facility] [address] [address] PCP - General 03/01/00 documented as of this encounter
--- OUTSIDE RECORDS SUMMARY | 2024-07-18 07:39 | XMS_ITS | Encounter Summary ---
Author Organization [facility] Address [address] [place] [address] Care Team Providers Care Budget Consultant Name Role Phone Joni Walker MD Primary Care Provider [phone] Encounter Details Date Type Department Care Team (Late st Contact Info) Description 04/27/1999 Outpatient Historical [facility] Primary Care - [address] [place] [address] Joni Walker MD [address] [facility] [address] [address] Social History Tobacco Use Types Packs/Day Years Used Date Smoking Tobacco: Never Assessed Comments Unknown Sex and Gender Information Value Date Recorded Sex Assigned at Not on file Legal Sex Female 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 Gender Identity Not on file Sexual Orientation Not on file documented as of this encounter Plan of Treatment Upcoming Encounters Date Type Department Care Team (Late st Contact Info) Description 08/28/2024 10:15 AM CDT Office Visit [facility] Oncology and Hematology - [place] [address] [place] [address] Diogo Benítez MD [address] [facility] [address] [place] [address] documented as of this encounter Visit Diagnoses Not on filedocumented in this encounter Care Teams Budget Consultant Relationship Specialty Start Date End Date Joni Walker MD [address] [facility] [place] [address] [phone] PCP - General 03/01/00 documented as of this encounter
--- OUTSIDE RECORDS SUMMARY | 2024-07-18 07:39 | XMS_ITS | Encounter Summary ---
Author Organization [facility] Address [address] [place] [address] Care Team Providers Care Louver Mortiser Operator Name Role Phone Joni Walker MD Primary Care Provider [phone] Encounter Details Date Type Department Care Team (Late st Contact Info) Description 12/22/1999 Outpatient Historical [facility] Primary Care - [address] [place] [address] Joni Walker MD [address] [facility] [address] [address] Social History Tobacco Use Types Packs/Day Years Used Date Smoking Tobacco: Never Assessed Comments Unknown Sex and Gender Information Value Date Recorded Sex Assigned at Not on file Legal 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 Female 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 Gender Identity Not on file Sexual Orientation Not on file documented as of this encounter Plan of Treatment Upcoming Encounters Date Type Department Care Team (Late st Contact Info) Description 08/28/2024 10:15 AM CDT Office Visit [facility] Oncology and Hematology - [place] [address] [place] [address] Diogo Benítez MD [address] [facility] [address] [place] [address] documented as of this encounter Visit Diagnoses Not on filedocumented in this encounter Care Teams Louver Mortiser Operator Relationship Specialty Start Date End Date Joni Walker MD [address] [facility] [place] [address] [address] PCP - General 03/01/00 documented as of this encounter
--- OUTSIDE RECORDS SUMMARY | 2024-07-18 07:39 | XMS_ITS | CONTINUITY OF CARE DOCUMENT ---
Author Name jimmy marquez Address Unknown Organization [facility] Address [address] [facility] [address] [place] [address] Phone [phone] Care Team Providers Care Project Control Officer Name Role Phone Breezy DOMINGUEZ, Moustapha Unavailable CLIFF DOMINGUEZ, JYOTI Unavailable Marcia DOMINUGEZ, Jamin Appiah Unavailable INSURANCE PROVIDERS Payer name Policy type / Coverage type [place] [employer] ID [facility] [id number] Other [id number]
--- OUTSIDE RECORDS SUMMARY | 2024-07-18 07:39 | XMS_ITS | Encounter Summary ---
Author Organization [facility] Address 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 Female 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 Gender Identity Not on file Sexual Orientation Not on file documented as of this encounter Plan of Treatment Upcoming Encounters Date Type Department Care Team (Late st Contact Info) Description 08/28/2024 10:15 AM CDT Office Visit [facility] Oncology and Hematology - [place] [address] [facility] [address] [place] [address] Diogo Benítez MD [address] [facility] [address] [place] [address] documented as of this encounter Visit Diagnoses Diagnosis Supervision of high-risk of elderly primigravida- Primary documented in this encounter Care Teams Manager Rn Case Relationship Specialty Start Date End Date Joni Walker MD [address] [place] [address] [address] PCP - General 03/01/00 documented as of this encounter
--- OUTSIDE RECORDS SUMMARY | 2024-07-18 07:40 | XMS_ITS | Encounter Summary ---
Author Organization [facility] Address [address] [place] [address] Care Team Providers Care Wrapper Hands Sprayer Name Role Phone Joni Walker MD Primary Care Provider [phone] Encounter Details Date Type Department Care Team (Late st Contact Info) Description 10/18/2006 Outpatient Historical [facility] Primary Care - [address] [place] [address] Joni Walker MD [address] [facility] [address] [address] Social History Tobacco Use Types Packs/Day Years Used Date Smoking Tobacco: Never Assessed Comments Unknown Sex and Gender Information Value Date Recorded Sex Assigned at Not on file Legal Sex Female 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 AM TEENAGE BABYSITTER Gender Identity Not on file Sexual Orientation Not on file documented as of this encounter Plan of Treatment Upcoming Encounters Date Type Department Care Team (Late st Contact Info) Description 08/28/2024 10:15 AM CDT Office Visit [facility] Oncology and Hematology - [place] [address] [place] [address] Diogo Benítez MD [address] [facility] [address] [place] [address] documented as of this encounter Visit Diagnoses Not on filedocumented in this encounter Care Teams Wrapper Hands Sprayer Relationship Specialty Start Date End Date Joni Walker MD [address] [facility] [facility] [address] [address] [phone] PCP - General 03/01/00 documented as of this encounter
--- OUTSIDE RECORDS SUMMARY | 2024-07-18 07:40 | XMS_ITS | Encounter Summary ---
Author Organization [facility] Address [address] [place] [address] Care Team Providers Care Cardiopulmonary Technician Name Role Phone Joni Walker MD Primary Care Provider [phone] Encounter Details Date Type Department Care Team (Latest Contact Info) Description 05/14/2004 Outpatient Historical [facility] Joni Walker MD [address] [place] [address] [address] EDEMA (Primary Dx) Social History Tobacco Use Types Packs/Day Years Used Date Smoking Tobacco: Never Assessed Comments Unknown Sex and Gender Information Value Date Recorded Sex Assigned at Not on file Legal Sex Female 4:38 AM DISTRESSER Gender Identity Not on file Sexual Orientation Not on file documented as of this encounter Plan of Treatment Upcoming Encounters Date Type Department Care Team (Late st Contact Info) Description 08/28/2024 10:15 AM CDT Office Visit [facility] Oncology and Hematology - [place] [address] [facility] [address] [place] [address] Diogo Benítez MD [address] [facility] [address] [place] [address] documented as of this encounter Visit Diagnoses Diagnosis Edema- Primary documented in this encounter Care Teams Cardiopulmonary Technician Relationship Specialty Start Date End Date Joni Walker MD [address] [place] [address] [address] PCP - General 03/01/00 documented as of this encounter
--- OUTSIDE RECORDS SUMMARY | 2024-07-18 07:40 | XMS_ITS | Encounter Summary ---
Author Organization [facility] Address [address] [place] [address] Care Team Providers Care Survey Questionnaire Designer Name Role Phone Joni Walker MD Primary Care Provider [phone] Encounter Details Date Type Department Care Team (Late st Contact Info) Description 02/28/2007 Outpatient Historical [facility] Primary Care - [address] [place] [address] Joni Walker MD [address] [facility] [address] [address] Social History Tobacco Use Types Packs/Day Years Used Date Smoking Tobacco: Never Assessed Comments Unknown Sex and Gender Information Value Date Recorded Sex Assigned at Not on file Legal 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 Gender Identity Not on file Sexual Orientation Not on file documented as of this encounter Plan of Treatment Upcoming Encounters Date Type Department Care Team (Late st Contact Info) Description 08/28/2024 10:15 AM CDT Office Visit [facility] Oncology and Hematology - [place] [address] [place] [address] Diogo Benítez MD [address] [facility] [address] [place] [address] documented as of this encounter Visit Diagnoses Not on filedocumented in this encounter Care Teams Survey Questionnaire Designer Relationship Specialty Start Date End Date Joni Walker MD [address] [facility] [place] [address] [place] [address] PCP - General 03/01/00 documented as of this encounter
--- OUTSIDE RECORDS SUMMARY | 2024-07-18 07:40 | XMS_ITS | Encounter Summary ---
Author Organization [facility] Address [address] [place] [address] Care Team Providers Care Nail Setter Name Role Phone Joni Walker MD Primary Care Provider [phone] Encounter Details Date Type Department Care Team (Late st Contact Info) Description 10/11/2006 Orders Only [facility] Primary Care - [address] [place] [address] Joni Walker MD [address] [facility] [address] [address] Social History Tobacco Use Types Packs/Day Years Used Date Smoking Tobacco: Never Assessed Comments Unknown Sex and Gender Information Value Date Recorded Sex Assigned at Not on file Legal Sex Female 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 LAST VISIT: 06-20-06 PCP: Denise WHO CALLED: Patient called. ALTERNATIVE PHONE NUMBER: [phone] CURRENT ALLERGY LIST: NO KNOWN ALLERGIES PHARMACY NUMBER: [phone] SECTION 1: REQUESTED ACTION marbin 10/11/06 at 12:37 pm: MEDICATION REQUEST: MEDICATION REQUEST: . wants hctz doesn't remember strength has taken in past. has swollen legs x 2 weeks sched appt 5-4-07............molly DOCTOR`S RESPONSE: deyanira 10/11/06 at 01:32 pm MEDICATIONS: HYDROCHLOROTHIAZIDE ORAL TABLET 25 MG, 1 Every Day, 90 Dispensed, 3 Fills, status: NEW PRESCRIPTION, 10/11/2006. FINAL ACTION: marbin 10/11/06 at 03:14 pm Spoke with patient 10/11/06 at 03:14 pm. Called pharmacy at 10/11/06 at 03:14 pm. / molly Electronically Signed by: Molly Morales on Wednesday, October 11, 2006 documented in this encounter Plan of Treatment Upcoming Encounters Date Type Department Care Team (Late st Contact Info) Description 08/28/2024 10:15 AM CDT Office Visit [facility] Oncology and Hematology - [place] [address] [facility] [address] [place] [phone] Diogo Benítez MD [address] [facility] [address] [place] [address] documented as of this encounter Visit Diagnoses Not on filedocumented in this encounter Care Teams Nail Setter Relationship Specialty Start Date End Date Joni Walker MD [address] [facility] [address] [address] PCP - General 03/01/00 documented as of this encounter
--- OUTSIDE RECORDS SUMMARY | 2024-07-18 07:40 | XMS_ITS | Encounter Summary ---
Author Organization [facility] Address [address] [place] [address] Care Team Providers Care Batch Freezer Operator Name Role Phone Joni Walker MD Primary Care Provider [phone] Encounter Details Date Type Department Care Team (Late st Contact Info) Description 08/16/2005 Orders Only [facility] Primary Care - [address] [place] [address] Joni Walker MD [address] [facility] [address] [address] Social History Tobacco Use Types Packs/Day Years Used Date Smoking Tobacco: Never Assessed Comments Unknown Sex and Gender Information Value Date Recorded Sex Assigned at Not on file Legal 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 LAST VISIT: 07-06-05 PCP: Denise. ALTERNATIVE PHONE NUMBER: [phone] WHO CALLED: Patient called. CURRENT ALLERGY LIST: NO KNOWN ALLERGIES PHARMACY NUMBER: [phone] PROBLEMS: CONGESTION: Patient complains of sinus congestion. HEADACHE: Patient complains of headache. SORE THROAT: Patient complains of sore throat. The sore throat began approximately 3 days ago. SECTION 1: REQUESTED ACTION [email or web address] 08/16/05 at 02:28 pm: MEDICATION REQUEST: Patient wants medications and can not come in............Shirley DOCTOR`S RESPONSE: deyanira 08/16/05 at 02:34 pm MEDICATIONS: Call in to Pharmacy ENTEX PSE ORAL TABLET 12 HR 120-600 MG, 1 Two Times A Day, 14 Dispensed, status: CONTINUED, 08/16/2005. AUGMENTIN ORAL TABLET 875-125 MG, 1 Two Times A Day, 14 Dispensed, status: NEW PRESCRIPTION, 08/16/2005. FINAL ACTION: [email or web address] 08/16/05 at 02:58 pm Spoke with patient 08/16/05 at 02:59 pm. Called pharmacy at 08/16/05 at 02:59 pm. /[email or web address] Electronically Signed by: Reinaldo Birmingham on Tuesday, August 16, 2005 documented in this encounter Plan of Treatment Upcoming Encounters Date Type Department Care Team (Late st Contact Info) Description 08/28/2024 10:15 AM CDT Office Visit [facility] Oncology and Hematology - [place] [address] [facility] [address] [place] [address] Diogo Benítez MD [address] [facility] [address] [place] [address] documented as of this encounter Visit Diagnoses Not on filedocumented in this encounter Care Teams Batch Freezer Operator Relationship Specialty Start Date End Date Joni Walker MD [address] [facility] [address] [phone] PCP - General 03/01/00 documented as of this encounter
--- OUTSIDE RECORDS SUMMARY | 2024-07-18 07:40 | XMS_ITS | Encounter Summary ---
Author Organization [facility] Address [address] [place] [address] Care Team Providers Care Steno Typist Name Role Phone Joni Walker MD Primary Care Provider [phone] Encounter Details Date Type Department Care Team (Late st Contact Info) Description 05/27/2004 Outpatient Historical [facility] Primary Care - [address] [place] [address] Joni Walker MD [address] [facility] [address] [address] Social History Tobacco Use Types Packs/Day Years Used Date Smoking Tobacco: Never Assessed Comments Unknown Sex and Gender Information Value Date Recorded Sex Assigned at Not on file 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 Gender Identity Not on file Sexual Orientation Not on file documented as of this encounter Plan of Treatment Upcoming Encounters Date Type Department Care Team (Late st Contact Info) Description 08/28/2024 10:15 AM CDT Office Visit [facility] Oncology and Hematology - [place] [address] [place] [address] Diogo Benítez MD [address] [facility] [address] [place] [address] documented as of this encounter Visit Diagnoses Not on filedocumented in this encounter Care Teams Steno Typist Relationship Specialty Start Date End Date Joni Walker MD [address] [facility] [place] [address] [phone] PCP - General 03/01/00 documented as of this encounter
--- OUTSIDE RECORDS SUMMARY | 2024-07-18 07:40 | XMS_ITS | Encounter Summary ---
Author Organization [facility] Address [address] [place] [address] Care Team Providers Care Ear Specialist Name Role Phone Joni Walker MD Primary Care Provider [phone] Encounter Details Date Type Department Care Team (Late st Contact Info) Description 06/20/2006 Orders Only [facility] Primary Care - [address] [place] [address] Joni Walker MD [address] [facility] [address] [address] Social History Tobacco Use Types Packs/Day Years Used Date Smoking Tobacco: Never Assessed Comments Unknown Sex and Gender Information Value Date Recorded Sex Assigned at Not on file Legal 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 LAST VISIT: 03-24-06 PCP: tabatha. ALTERNATIVE PHONE NUMBER: [phone] lmor WHO CALLED: Patient called. CURRENT ALLERGY LIST: NKDA NO KNOWN ALLERGIES PHARMACY NUMBER: [phone] PROBLEMS: pt having symptoms for about a week, chest congestion with productive cough and green mucus, hurts when she takes deep breath, sinus congestion with green mucus, lt ear pain, diarrhea, pt denies fever and all other symptoms, pt taking Tylenol SECTION 1: REQUESTED ACTION starca 06/20/06 at 09:07 am: APPOINTMENT REQUEST: Patient wants an appointment today with PCP only, no appointments available. ...joaquim DOCTOR`S RESPONSE: deyanira 06/20/06 at 09:14 am 1130 FINAL ACTION: starca 06/20/06 at 09:25 am per wb Spoke with patient 06/20/06 at 09:25 am. Booked appointment: 06-20-06 at 11:30am...joaquim Electronically Signed by: Yuliet Collazo on Tuesday, June 20, 2006 * Joni Walker MD - 11/07/2007 10:16 AM CDT BLOOD PRESSURE: 110/80 Right Arm Sitting TEMPERATURE: 98.7??f Oral WEIGHT: 255lbs NURSE NAME: Michelle Xavier A ALLERGIES: No known drug allergies. MEDICATIONS: Medications may have changed. Dr to review medications. CHIEF COMPLAINT Patient complains of chest discomfort, back pain. hurts to take a deep breath x 1 wk.....cough at night.. HISTORY: ROS: RESPIRATORY: No history of bronchitis, HAS A COUGH, HAS PLEURISY THAT IS NOT BEING TREATED. PHYSICAL EXAMINATION: RESPIRATORY: Clear to auscultation and percussion. Normal respiratory effort. CARDIOVASCULAR: CARDIAC: Regular rhythm. No murmurs, rubs, or gallops. ARTERIAL: No aortic bruits. EDEMA/VARICOSITIES OF EXTREMITIES: No edema or varicosities. ASSESSMENT/PLAN: 465.9-UPPER RESPIRATORY INFECTION ASSESSMENT: The patient's URI has worsened. Will start medication for better control. STATUS: New. MEDICATIONS: AUGMENTIN ORAL TABLET 875-125 MG, 1 Two Times A Day, 20 Dispensed, status: CONTINUED, 06/20/2006. ENTEX PSE ORAL TABLET 12 HR 120-600 MG, 1 Two Times A Day, 20 Dispensed, status: CONTINUED, 06/20/2006. DARVOCET-N 100 ORAL TABLET 100-650 MG, 1 Every Six Hours, As Needed, 20 Dispensed, status: NEW PRESCRIPTION, 06/20/2006. advil 600 tid RETURN VISIT : Patient instructed to call in 1 week if not improving. Electronically Signed by: Joni Walker MD on Sunday, July 23, 2006 documented in this encounter Plan of Treatment Upcoming Encounters Date Type Department Care Team (Late st Contact Info) Description 08/28/2024 10:15 AM CDT Office Visit [facility] Oncology and Hematology - [place] [address] [facility] [address] [place] [address] Diogo Benítez MD [address] [facility] [address] [place] [address] documented as of this encounter Visit Diagnoses Not on filedocumented in this encounter Care Teams Ear Specialist Relationship Specialty Start Date End Date Joni Walker MD [address] [facility] [address] [phone] PCP - General 03/01/00 documented as of this encounter
--- OUTSIDE RECORDS SUMMARY | 2024-07-18 07:40 | XMS_ITS | Encounter Summary ---
Author Organization [facility] Address [address] [place] [address] Care Team Providers Care Curing Room Supervisor Name Role Phone Joni Walker MD Primary Care Provider [phone] Encounter Details Date Type Department Care Team (Late Contact Info) Description 03/01/2000 Outpatient Historical [facility] Shaq Perdomo MD [address] [place] [address] [address] [place] [address] Benign neoplasm of colon (Primary Dx) Social History Tobacco Use Types Packs/Day Years Used Date Smoking Tobacco: Never Assessed Comments Unknown Sex and Gender Information Value Date Recorded Sex Assigned at Not on file Legal 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 Gender Identity Not on file Sexual Orientation Not on file documented as of this encounter Plan of Treatment Upcoming Encounters Date Type Department Care Team (Late Contact Info) Description 08/28/2024 10:15 AM CDT Office Visit [facility] Oncology and Hematology - [place] [address] [facility] [address] [place] [address] Diogo Benítez MD [address] [facility] [address] [place] [address] documented as of this encounter Visit Diagnoses Diagnosis Benign neoplasm of colon- Primary documented in this encounter Care Teams Curing Room Supervisor Relationship Specialty Start Date End Date Joni Walker MD [address] [facility] [address] [address] PCP - General 03/01/00 documented as of this encounter
--- OUTSIDE RECORDS SUMMARY | 2024-07-18 07:40 | XMS_ITS | Encounter Summary ---
Author Organization [facility] Address [address] [place] [address] Care Team Providers Care Construction Safety Consultant Name Role Phone Joni Walker MD Primary Care Provider [phone] Encounter Details Date Type Department Care Team (Late st Contact Info) Description 02/23/2000 Outpatient Historical [facility] Primary Care - [address] [place] [address] Joni Walker MD [address] [facility] [address] [address] Social History Tobacco Use Types Packs/Day Years Used Date Smoking Tobacco: Never Assessed Comments Unknown Sex and Gender Information Value Date Recorded Sex Assigned at Not on file Legal Sex Female 4:38 AM CANNONEER Gender Identity Not on file Sexual Orientation Not on file documented as of this encounter Plan of Treatment Upcoming Encounters Date Type Department Care Team (Late st Contact Info) Description 08/28/2024 10:15 AM CDT Office Visit [facility] Oncology and Hematology - [place] [address] [place] [address] Diogo Benítez MD [address] [facility] [address] [place] [address] documented as of this encounter Visit Diagnoses Not on filedocumented in this encounter Care Teams Construction Safety Consultant Relationship Specialty Start Date End Date Joni Walker MD [address] [facility] [place] [address] [phone] PCP - General 03/01/00 documented as of this encounter
--- OUTSIDE RECORDS SUMMARY | 2024-07-18 07:40 | XMS_ITS | Encounter Summary ---
Author Organization [facility] Address [address] [place] [address] Care Team Providers Care Caustic Room Operator Name Role Phone Joni Walker MD Primary Care Provider [phone] Encounter Details Date Type Department Care Team (Late st Contact Info) Description 10/04/2000 Outpatient Historical [facility] Primary Care - [address] [place] [address] Joni Walker MD [address] [facility] [address] [address] Social History Tobacco Use Types Packs/Day Years Used Date Smoking Tobacco: Never Assessed Comments Unknown Sex and Gender Information Value Date Recorded Sex Assigned at Not on file Legal Sex Female 4:38 AM FITTER UP Gender Identity Not on file Sexual Orientation Not on file documented as of this encounter Plan of Treatment Upcoming Encounters Date Type Department Care Team (Late st Contact Info) Description 08/28/2024 10:15 AM CDT Office Visit [facility] Oncology and Hematology - [place] [address] [place] [address] Diogo Benítez MD [address] [facility] [address] [place] [address] documented as of this encounter Visit Diagnoses Not on filedocumented in this encounter Care Teams Caustic Room Operator Relationship Specialty Start Date End Date Joni Walker MD [address] [facility] [address] [address] PCP - General 03/01/00 documented as of this encounter
--- OUTSIDE RECORDS SUMMARY | 2024-07-18 07:40 | XMS_ITS | Encounter Summary ---
Author Organization [facility] Address [address] [place] [address] Care Team Providers Care Assembly Operator Name Role Phone Joni Walker MD Primary Care Provider [phone] Encounter Details Date Type Department Care Team (Latest Contact Info) Description 01/20/2007 Outpatient Historical [facility] Primary Care - [address] [place] [address] Joni Walker MD [address] [facility] [address] [address] Hematuria (Primary Dx) Social History Tobacco Use Types Packs/Day Years Used Date Smoking Tobacco: Never Assessed Comments Unknown Sex and Gender Information Value Date Recorded Sex Assigned at Not on file 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 Gender Identity Not on file Sexual Orientation Not on file documented as of this encounter Plan of Treatment Upcoming Encounters Date Type Department Care Team (Late st Contact Info) Description 08/28/2024 10:15 AM CDT Office Visit [facility] Oncology and Hematology - [place] [address] [place] [address] Diogo Benítez MD [address] [facility] [address] [place] [address] documented as of this encounter Visit Diagnoses Diagnosis Hematuria- Primary documented in this encounter Care Teams Assembly Operator Relationship Specialty Start Date End Date Joni Walker MD [address] [facility] [address] [phone] PCP - General 03/01/00 documented as of this encounter
--- OUTSIDE RECORDS SUMMARY | 2024-07-18 07:40 | XMS_ITS | Encounter Summary ---
Author Organization [facility] Address [address] [place] [address] Care Team Providers Care Chinese Medicine Practitioner Name Role Phone Joni Walker MD Primary Care Provider [phone] Encounter Details Date Type Department Care Team (Late st Contact Info) Description 01/18/2007 Orders Only [facility] Primary Care - [facility] [address] [place] [address] [address] [place] [address] Amarjit Guillory MD NO ADDRESS ON FILE Social History Tobacco Use Types Packs/Day Years Used Date Smoking Tobacco: Never Assessed Comments Unknown Sex and Gender Information Value Date Recorded Sex Assigned at Not on file 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 Gender Identity Not on file Sexual Orientation Not on file documented as of this encounter Plan of Treatment Upcoming Encounters Date Type Department Care Team (Late st Contact Info) Description 08/28/2024 10:15 AM CDT Office Visit [facility] Oncology and Hematology - [place] [address] [facility] [address] [place] [address] Diogo Benítez MD [address] [facility] [address] [place] [address] documented as of this encounter Visit Diagnoses Not on filedocumented in this encounter Care Teams Chinese Medicine Practitioner Relationship Specialty Start Date End Date Joni Walker MD [address] [facility] [address] [address] PCP - General 03/01/00 documented as of this encounter
--- OUTSIDE RECORDS SUMMARY | 2024-07-18 07:40 | XMS_ITS | Encounter Summary ---
Author Organization [facility] Address [address] [place] [address] Care Team Providers Care Supervisor Drying And Softening Name Role Phone Joni Walker MD Primary Care Provider [phone] Encounter Details Date Type Department Care Team (Latest Contact Info) Description 02/28/2007 Outpatient Historical [facility] ([facility] Primary Care - [address] [place] [address] Joni Walker MD [address] 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 Gender Identity Not on file Sexual Orientation Not on file documented as of this encounter Plan of Treatment Upcoming Encounters Date Type Department Care Team (Late st Contact Info) Description 08/28/2024 10:15 AM CDT Office Visit [facility] ([facility] Oncology and Hematology - [place] [address] [place] [address] Diogo Benítez MD [address] [facility] [address] [place] [address] documented as of this encounter Procedures Procedure Name Priority Date/Time Associated Diagnosis Comments URINALYSIS WITH REFLEX CULTURE Routine 02/28/2007 3:50 PM CDT CBC WITH DIFFERENTIAL Routine 02/28/2007 3:50 PM CDT CBC WITH DIFFERENTIAL Routine 02/28/2007 3:50 PM CDT URINALYSIS W/REFLEX MICROSCOPIC Routine 02/28/2007 3:50 PM CDT TSH Routine 02/28/2007 3:50 PM CDT LIPID PANEL Routine 02/28/2007 3:50 PM CDT COMPREHENSIVE METABOLIC PANEL Routine 02/28/2007 3:50 PM CDT documented in this encounter Results * (ABNORMAL) URINALYSIS (02/28/2007 3:50 PM CDT) COLOR UA Pale Yellow INTERFAC E SYSTEM CLARITY UA Clear Clear INTERFACE SYSTEM SPECIFIC GRAVITY UA 1.009 1.001 - 1.035 INTERFACE SYSTEM PH UA 5.0 5.0 - 8.0 INTERFACE SYSTEM LEUKOCYTE ESTERASE UA Trace(A) Negative INTERFACE SYSTEM NITRITE UA Negative Negative INTERFACE SYSTEM PROTEIN UA Negative Negative INTERFACE SYSTEM GLUCOSE UA Negative Negative INTERFACE SYSTEM KETONES UA Negative Negative INTERFACE SYSTEM UROBILINOGEN UA <1 <=1 mg/dL INTE RFACE SYSTEM BILIRUBIN UA Negative Negative INTERFA CE SYSTEM BLOOD UA Negative Negative INTERFACE SYSTEM WBC UA 1 0 - 5 /HPF INTERFACE SYSTEM RBC UA <1 0 - 4 /HPF INTERFACE SYSTEM BACTERIA UA 1+(A) None Seen /HPF INTERFACE SYSTEM EPITHELIAL CELLS, URINE 2-5 /HPF INTERFACE SYSTEM 02/28/2007 3:50 PM CDT Joni Walker MD URINE ORDERABLES Edited INTERFACE SYSTEM Refer to clinic/hospital department * URINALYSIS WITH REFLEX CULTURE (02/28/2007 3:50 PM CDT) URINE CULTURE ORDER Culture ordered INTERFACE SYSTEM Comment: Criteria for a reflex culture include one or more of the following: ??Abn ormal nitrite, leukocyte esterase, WBCs or RBCs. ??Lack of qualifying criteria does not exclude the possiblity of a urinary tract infection. ??Dilute urine, drug interference, etc. may decrease the sensitivity of the criteria analytes. 02/28/2007 3:50 PM CDT Joni Walker MD URINE ORDERABLES Edited Performing Organization Address [facility] Phone Number INTERFACE SYSTEM Refer to clinic/hospital department * (ABNORMAL) CBC WITH DIFFERENTIAL (02/28/2007 3:50 PM CDT) NEUTROPHILS 65 45 - 70 % INTERFAC E SYSTEM LYMPHOCYTES 28 16 - 45 % INTERFAC E SYSTEM MONOCYTES 6 3 - 13 % INTERFACE SYSTEM EOSINOPHILS 1 0 - 7 % INTERFAC E SYSTEM BASOPHILS 0 0 - 2 % INTERFACE SYSTEM NEUTROPHIL ABSOLUTE 7.78(H) 1.90 - 7.00 K/uL INTERFACE SYSTEM LYMPHOCYTE ABSOLUTE 3.36 0.70 - 4.50 K/uL INTERFACE SYSTEM MONOCYTE ABSOLUTE 0.77 0.10 - 1.30 K/uL INTERFACE SYSTEM EOSINOPHIL ABSOLUTE 0.08 0.00 - 0.70 K/uL INTERFACE SYSTEM BASOPHILS ABSOLUTE 0.05 0.00 - 0.20 K/uL INTERFACE SYSTEM 02/28/2007 3:50 PM CDT Joni Walker MD HEMATOLOGY ORDERABLES Edited Performing Organization Address [facility] Phone Number INTERFACE SYSTEM Refer to clinic/hospital department * (ABNORMAL) CBC WITH DIFFERENTIAL (02/28/2007 3:50 PM CDT) WBC 12.0(H) 4.0 - 9.8 K/uL INTERFACE SYSTEM RBC 4.65 3.90 - 4.90 M/uL INTERFACE SYSTEM HEMOGLOBIN 12.2 11.8 - 14.8 g/dL INTERFACE SYSTEM HEMATOCRIT 37.1 35.5 - 44.0 % INTERFACE SYSTEM MCV 79.8(L) 82.0 - 99.0 fL INTERFACE SYSTEM MCH 26.2(L) 27.2 - 32.6 pg INTERFACE SYSTEM MCHC 32.9 31.5 - 35.5 % INTERFACE SYSTEM RDW 14.9(H) 11.5 - 14.5 % INTERFACE SYSTEM RDW-STDEV 43.3 37.1 - 48.7 fL INTERFACE SYSTEM PLATELETS 344 140 - 350 K/uL INTERFACE SYSTEM MPV 11.9 9.3 - 12.4 fL INTERFACE SYSTEM 02/28/2007 3:50 PM CDT Joni Walker MD HEMATOLOGY ORDERABLES Edited Performing Organization Address [facility] Co de Phone Number INTERFACE SYSTEM Refer to clinic/hospital department * TSH (02/28/2007 3:50 PM CDT) TSH 1.35 0.27 - 4.20 uU/mL INTERFACE SYSTEM 02/28/2007 3:50 PM CDT Joni Walker MD CHEMISTRY ORDERABLES Edited Performing Organization Address [facility] de Phone Number INTERFACE SYSTEM Refer to clinic/hospital department * (ABNORMAL) COMPREHENSIVE METABOLIC PANEL (02/28/2007 3:50 PM CDT) GLUCOSE 103(H) 65 - 99 mg/dL INTERFACE SYSTEM CREATININE 0.89 0.51 - 0.95 mg/dL INTERFACE SYSTEM CALCIUM 9.5 8.4 - 10.2 mg/dL INTERFACE SYSTEM ALKALINE PHOSPHATASE 90 35 - 104 U/L INTERFACE SYSTEM AST 18 12 - 32 U/L INTERFACE SYSTEM ALT 15 0 - 31 U/L INTERFACE SYSTEM TOTAL PROTEIN 7.9 6.3 - 8.6 g/dL INTERFACE SYSTEM ALBUMIN 4.6 3.4 - 4.8 g/dL INTERFACE SYSTEM BILIRUBIN TOTAL 0.4 0.2 - 1.0 mg/dL INTERFACE SYSTEM BUN 16 6 - 20 mg/dL INTERFACE SYSTEM SODIUM 137 135 - 145 mmol/L INTERFACE SYSTEM POTASSIUM 4.1 3.5 - 4.9 mmol/L INTERFACE SYSTEM CHLORIDE 102 96 - 108 mmol/L INTERFACE SYSTEM CO2 26 22 - 30 mmol/L INTERFACE SYSTEM GFR, >60 >=60 mL/min/1. 7 sq meter INTERFACE SYSTEM GFR >60 >=60 mL/min/1. 7 sq meter INTERFACE SYSTEM Comment: Estimated GFR rate interpretative information for both Americans and non- Americans is available on the [facility] Intranet at: [email or web address] Select: Lab Policies and Procedures Select: Reference Ranges - GFR 02/28/2007 3:50 PM CDT Joni Walker MD CHEMISTRY ORDERABLES Edited Performing Organization Address [facility] de Phone Number INTERFACE SYSTEM Refer to clinic/hospital department * (ABNORMAL) LIPID PANEL (02/28/2007 3:50 PM CDT) CHOLESTEROL 184 100 - 199 mg/dL INTERFACE SYSTEM TRIGLYCERIDE 105 10 - 149 mg/dL INTERFACE SYSTEM HDL 56 40 - 59 mg/dL INTERFACE SYSTEM CHOL/HDL RATIO 3.3 2.0 - 5.0 INTER FACE SYSTEM LDL CALCULATED 107(H) <=99 mg/dL INTERFACE SYSTEM LIPID PANEL COMMENT See Below INTERFACE SYSTEM Comment: The adult ATP and pediatric NCEP classifications for lipids are available on the [facility] Intranet at: [email or web address] Select: Lab Policies and Procedures,Current Select: Lipid Panel Interpretation 02/28/2007 3:50 PM CDT Joni Walker MD CHEMISTRY ORDERABLES Edited Performing Organization Address [facility] Co de Phone Number INTERFACE SYSTEM Refer to clinic/hospital department documented in this encounter Visit Diagnoses Diagnosis Routine general medical examination at a health care facility- Primary documented in this encounter Care Teams Supervisor Drying And Softening Relationship Specialty Start Date End Date Joni Walker MD [address] [facility] [address] [address] PCP - General 03/01/00 documented as of this encounter
--- OUTSIDE RECORDS SUMMARY | 2024-07-18 07:40 | XMS_ITS | Encounter Summary ---
Author Organization [facility] Address [address] [place] [address] Care Team Providers Care Hand Mica Plate Layer Name Role Phone Joni Walker MD Primary Care Provider [phone] Encounter Details Date Type Department Care Team (Late st Contact Info) Description 08/22/2000 Outpatient Historical [facility] Primary Care - [facility] [address] [facility] [address] [place] [address] Hamzah Smith MD [address] [facility] [address] [place] [address] Social History Tobacco Use Types Packs/Day Years Used Date Smoking Tobacco: Never Assessed Comments Unknown Sex and Gender Information Value Date Recorded Sex Assigned at Not on file 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 Gender Identity Not on file Sexual Orientation Not on file documented as of this encounter Plan of Treatment Upcoming Encounters Date Type Department Care Team (Late st Contact Info) Description 08/28/2024 10:15 AM CDT Office Visit [facility] Oncology and Hematology - [place] [address] [facility] [address] [place] [address] Diogo Benítez MD [address] [facility] [address] [place] [address] documented as of this encounter Visit Diagnoses Not on filedocumented in this encounter Care Teams Hand Mica Plate Layer Relationship Specialty Start Date End Date Joni Walker MD [address] [facility] [address] [id number] PCP - General 03/01/00 documented as of this encounter
--- OUTSIDE RECORDS SUMMARY | 2024-07-18 07:40 | XMS_ITS | Data Portability ---
Author Organization [facility], Main Office Address [address] [place] [address] Assessment Encounter Date Assessment Date Assessment LastModified by Organization Details LastModified Time 09/16/2022 09/16/2022 WEA-01/19/22 Cscope- 06/2022- polyps-tubular adenoma- repeat 3 years- 06/2025 Mammogram-ordere d DEXA- ordered, encouraged WWE 11/30/19- get scheduled, has been referred to RADIOLOGICAL TECHNOLOGIST multiple times DM eye exam- 04/2023 Call office if worse, ER if life threatening illness RTC 3 months She voices understanding of plan and agrees [email or web address] Not available 09/16/2022 11:13:48 12/24/2022 12/24/2022 WEA-01/19/22 Cscope- 06/2022- polyps-tubular adenoma- repeat 3 years- 06/2025 Mammogram-ordere d, encouraged DEXA- ordered, encouraged WWE 11/30/19- get scheduled, has been referred to RADIOLOGICAL TECHNOLOGIST multiple times DM eye exam- 04/2022 Call office if worse, ER if life threatening illness RTC 3 months She voices understanding of plan and agrees [email or web address] Not available 12/24/2022 15:03:16 03/25/2023 03/25/2023 WEA-03/25/23 Cscope- 06/2022- polyps-tubular adenoma- repeat 3 years- 06/2025 Mammogram-ordere d, encouraged DEXA- ordered, encouraged WWE 11/30/19- get scheduled, has been referred to RADIOLOGICAL TECHNOLOGIST multiple times DM eye exam- 04/2022 Call office if worse, ER if life threatening illness RTC 4 months She voices understanding of plan and agrees [email or web address] Not available 03/25/2023 11:33:27 Plan of Treatment Reminders Order Date Submit Date Provider Last Modified By Organization Details Last Modified Time Details Appointments Any 15 2024 08:00A Meredith Garcia APRN Not available Not available Not available Lab ferritin, serum or plasma 2022 023 [facility] (Lab), [address] [place], [address], 09/16/2022 12:40:27 iron + total iron-bind ing capacity (TIBC), serum 2022 023 [facility] (Lab), [address] [place], [address], 09/16/2022 11:57:04 lipid panel, serum 2022 023 [facility] (Lab), [address] [place], [address], 09/16/2022 12:19:32 TSH + free T4, serum [address] (Lab), [address] [place], [address], 09/23/2022 11:20:05 vitamin D, 25-hydrox y, total, serum [address] (Lab), [address] [place], [address], 09/23/2022 11:20:05 urinalysi s complete, reflex culture [address] (Lab), [address] [place], [address], 09/23/2022 11:20:05 CMP, serum or plasma 2022 023 [facility] (Lab), [address] [place], [address], 09/16/2022 12:19:41 HbA1c (hemoglob in A1c), blood [address] (Lab), [address] [place], [address], 09/23/2022 11:20:04 CBC w/ auto diff 2022 023 KEVIN [facility] (Lab), [address] [place], [address], 09/16/2022 11:58:17 microalbu min/creat inine, mass ratio, urine [address] (Lab), [address] [place], [address], 09/23/2022 11:20:04 vitamin B12 + folate, serum or blood [address] (Lab), [address] [place], [address], 09/23/2022 11:20:05 iron + total iron-bind ing capacity (TIBC), serum [address] (Lab), [address] [place], [address], 10/04/2023 16:31:41 ferritin, serum or plasma [address] (Lab), [address] [place], [address], 10/04/2023 16:31:42 CBC w/ auto diff [address] (Lab), [address] [place], [address], 10/04/2023 16:31:41 CMP, serum or plasma [address] (Lab), [address] [place], [address], 10/04/2023 16:31:41 lipid panel, serum [address] (Lab), [address] [place], [address], 10/04/2023 16:31:41 TSH, serum or plasma [address] (Lab), [address] [place], [address], 10/04/2023 16:31:41 vitamin D, 25-hydrox y, total, serum [address] (Lab), [address] [place], [address], 10/04/2023 16:31:41 glycohemo globin, total, blood [address] (Lab), [address] [place], [address], 10/04/2023 16:31:42 microalbu min/creat inine, ratio, urine [address] (Lab), [address] [place], [address], 10/04/2023 16:31:42 vitamin B12 + folate, serum or blood [address] (Lab), [address] [place], [address], 10/04/2023 16:31:42 iron + total iron-bind ing capacity (TIBC), serum 2023 024 [facility] (Lab), [address] [place], [address], 03/21/2024 07:34:05 vitamin D, 25-hydrox y, total, serum 2023 [facility] (Lab), [address] [place], [address], 03/21/2024 07:34:05 CBC w/ auto diff 2023 [facility] (Lab), [address] [place], [address], 03/21/2024 07:34:04 CMP, serum or plasma 2023 024 [facility] (Lab), [address] [place], [address], 03/21/2024 07:34:04 TSH, serum or plasma 2023 024 [facility] (Lab), [address] [place], [address], 03/21/2024 07:34:05 T4, free, serum 2023 [facility] (Lab), [address] [place], [address], 03/21/2024 07:34:05 lipid panel, serum 2023 024 [facility] (Lab), [address] [place], [address], 03/21/2024 07:34:05 iron + total iron-bind ing capacity (TIBC), serum 2023 [facility] (Lab), [address] [place], [address], 07/17/2024 07:42:31 glycohemo globin, total, blood 2023 024 [facility] (Lab), [address] [place], [address], 07/17/2024 07:42:30 lipid panel, serum 2023 024 [facility] (Lab), [address] [place], [address], 07/17/2024 07:42:30 CBC w/ auto diff 2023 024 [facility] (Lab), [address] [place], [address], 07/17/2024 07:42:30 TSH, serum or plasma [address] [place] [address] (Lab), [address] [place], [address], 07/17/2024 07:42:30 CMP, serum or plasma 2023 024 [facility] (Lab), [address] [place], [address], 07/17/2024 07:42:30 vitamin D, 25-hydrox y, total, serum [address] [place] [address] (Lab), [address] [place], [address], 07/17/2024 07:42:31 hepatitis C virus Ab, serum [address] [place] [address] (Lab), [address] [place], [address], 07/17/2024 07:42:31 vitamin B12 + folate, serum or blood 2023 024 [facility] (Lab), [address] [facility], [place], [address], 07/17/2024 07:42:31 Referral gynecolog ist referral - needs wwe 2022 023 suzette Berkowitz MD, [address], [address], [place], [address], 10/04/2023 16:31:20 gynecolog ist referral - needs wwe 2022 023 suzette Berkowitz MD, [address], [address], [place], [address], 10/04/2023 16:31:22 Procedures None recorded. Surgeries None recorded. Imaging MAMMO, screening , bilateral [address], [address], [address], [place], [address], 06/20/2023 12:43:09 bone density [address], [address], [address], [place], [address], 06/20/2023 12:43:29 bone density [address] (Imaging), [address], [place], [address], 10/04/2023 16:31:29 MAMMO, diagnosti c, digital, bilateral - thickenin g- 12 oclock left breast; family hx breast ca 2022 023 [facility], [address], [address], [place], [address], 04/21/2023 16:26:24 US, breast, unilatera l - thickenin g- 12 oclock left breast; family hx breast ca 2022 023 [facility], [address], [address] [address], [place], [address], 04/25/2023 16:58:28 Medication Orders Ozempic 0.25 mg or 0.5 mg (2 mg/3 mL) subcutane ous pen injector 2022 023 [facility]/Pharmacy #[id number], [address], [place], [address], 02/23/2024 12:21:28 cyanocoba emely (vit B-12) 1,000 mcg/mL injection solution [address]/Pharmacy #[id number], [address], [place], [address], 09/16/2022 10:37:58 Ozempic 1 mg/dose (4 mg/3 mL) subcutane ous pen injector 2022 023 [id number], [address], [place], [address], 12/24/2022 12:40:50 fluticaso ne propionat e 50 mcg/actua tion nasal spray,gabriel pension 2022 023 [id number], [address], [place], [address], 12/24/2022 12:40:54 cyanocoba emely (vit B-12) 1,000 mcg/mL injection solution [address]/Pharmacy #[id number], [address], [place], [address], 12/24/2022 12:13:32 cyanocoba emely (vit B-12) 1,000 mcg/mL injection solution [address]/Pharmacy #[id number], [address], [place], [address], 03/25/2023 12:35:25 Zithromax Z-Greg 250 mg tablet 2023 024 [id number] [address], [place], [address], 02/23/2024 12:20:37 hydrochlo rothiazid e 25 mg tablet 2023 024 [id number], [address] [place], [address], 10/04/2023 15:29:39 losartan 50 mg tablet 2023 [id number], [address] [place], [address], 10/04/2023 15:29:39 glimepiri de 2 mg tablet 2023 024 [id number], [address] [place], [address], 10/04/2023 15:29:39 metformin 1,000 mg tablet 2023 024 [id number], [address] [place], [address], 10/04/2023 15:29:38 Ozempic 0.25 mg or 0.5 mg (2 mg/3 mL) subcutane ous pen injector 2023 024 [id number] [address] [place], [address], 02/23/2024 12:21:28 rosuvasta tin 10 mg tablet 2023 024 [facility]/Pharmacy #[id number], [address] [place], [address], 10/04/2023 15:29:38 cyanocoba emely (vit B-12) 1,000 mcg/mL injection solution 2023 024 [id number], [address], [place], [address], 10/04/2023 15:29:39 rosuvasta tin 10 mg tablet 2023 024 [id number], [address], [place], [address], 02/23/2024 12:46:42 fluticaso ne propionat e 50 mcg/actua tion nasal spray,gabriel pension 2023 024 [id number], [address] [facility], [place], [address], 02/23/2024 12:46:43 ergocalci ferol (vitamin D2) 1,250 mcg (50,000 unit) capsule 2023 024 [id number], [address] [place], [address], 02/23/2024 12:46:44 hydrochlo rothiazid e 25 mg tablet 2023 024 [id number], [address], [place], [address], 02/23/2024 12:46:42 losartan 50 mg tablet 2023 024 [id number], [address], [place], [address], 02/23/2024 12:46:43 glimepiri de 2 mg tablet 2023 024 [id number], [address], [place], [address], 02/23/2024 12:46:42 metformin 1,000 mg tablet 2023 024 [id number], [address], [place], [address], 02/23/2024 12:46:45 cyanocoba emely (vit B-12) 1,000 mcg/mL injection solution 2023 024 [id number], [address], [place], [address], 02/23/2024 12:46:42 Patient TargetsNo targets recorded. Patient Instructions Encounter Date Encounter Id Patient Instructions Last Modified By Organization Details Last Modified Time 03/25/2023 [id number] INFLUENZA VACCIN E Recommended today, but patient declined TD/TDAP Recommended today, patient declined Ordered P atient will get at local pharmacy/health department PNEUMONIA VACCINE Ordered Recommende d today, patient declined Patient will get at local pharmacy/health department Recomme nded at age 66 SHINGLES Ordered Recommende d today, patient declined Patient will get at local pharmacy/health department MAMMOGRAM: Last Mammogram _ Recommended today, but patient declined Ordered DEXA SCAN Recommended today, but patient declined Ordered CERVICAL SCREENING/PELVIC EXAMINATION Recommended today, but patient declined Ordered COLORECTAL SCREENING: Last Colonoscopy No screening necessary patient is up to date DEPRESSION SCREENING Negative BMI Overweight Appropr iate Underweight O besity continue your current weight loss efforts try to lose 5% of your body weight try to lose 10% of your body weight NUTRITION Heart Healthy Diet Recommendatio n of a 1500 caloric intake for weight loss is advised Diabetic Diet PHYSICAL ACTIVITY Need more exercise/physical activity minimum of 10-20 minutes of activity that causes mild breathlessness/day minimum of 20-30 minutes activity that causes mild breathlessness/day minimum of 30-40 minutes of activity that causes mild breathlessness/day VISION Ordered Recommende d today ALCOHOL USE No alcohol use Occasional/Soc ial Use TOBACCO USE non smoker LUNG CANCER SCREENING Non Smoker-not indicated SEXUALLY ACTIVE No HEPATITIS C SCREENING Not indicated GLUCOSE SCREENING Known Diabetic LIPID SCREENING Diagnosis of Hyperlipidemia [email or web address] Not available 03/25/2023 11:35:43 10/04/2023 [id number] Follow up in 3 months Obtain labs Prescriptions sent to pharmacy Not available 10/04/2023 15:25:37 02/23/2024 [id number] diabetic foot exam* ruba Not available 03/05/2024 08:31:07 Follow up in 6 months Prescriptions sent to pharmacy Obtain labs Tests: Dexa scan Referral: Dr. 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 for Re ferral needed needs wwe Referring Physician: Cristy Hercules, Internal Medicine, Encounter Date: 12/24/2022 Roller Mechanic Referral for Re ferral needed needs wwe Referring Physician: Cristy Hercules, Internal Medicine, Encounter Date: 03/25/2023 Results Created Date Observation Date Name Description Value Unit Range Abnormal Flag Note LastModifiedBy Organization Detail LastModifiedTime 09/17/1909/16/2022 IRON/ TIBC PANEL total iron binding capacity 383 mcg/d L 265-47 5 Not Available [facility] (Lab) [address] [place], [address], 09/16/2022 11:58:10 09/17/1909/16/2022 IRON/ TIBC PANEL % transferrin saturation 13 % 20-55 low Not Available [facility] (Lab) [address] [place], [address], 09/16/2022 11:58:10 09/17/1909/16/2022 IRON/ TIBC PANEL unsaturated iron bind capacity 335 mcg/d L 126-38 2 Not Available [facility] (Lab) [address] [place], [address], 09/16/2022 11:58:10 09/17/19 23 09/16/2022 IRON/ TIBC PANEL iron 48 mcg/d L 42-175 Not Available [facility] (Lab) [address] [place], [address], 09/16/2022 11:58:10 09/17/19 23 09/16/2022 CBC/C OMPLE TE BLD COUNT W/DIF F white blood cells 8.5 x10'3 /uL 4.2-10 .8 Not Available [facility] (Lab) [address] [place], [address], 09/16/2022 11:58:17 09/17/19 23 09/16/2022 CBC/C OMPLE TE BLD COUNT W/DIF F red blood cells 4.77 x10'6 /uL 3.80-5 .20 Not Available [facility] (Lab) [address] [place], [address], 09/16/2022 11:58:17 09/17/19 23 09/16/2022 CBC/C OMPLE TE BLD COUNT W/DIF F hemoglobin 12.5 g/dL 12.0-1 5.6 Not Available [facility] (Lab) [address] [place], [address], 09/16/2022 11:58:17 09/17/19 23 09/16/2022 CBC/C OMPLE TE BLD COUNT W/DIF F hematocrit 39.2 % 35.7-4 5.7 Not Available [facility] (Lab) [address] [place], [address], 09/16/2022 11:58:17 09/17/19 23 09/16/2022 CBC/C OMPLE TE BLD COUNT W/DIF F mean red cell volume 82.2 fL 82.0-9 9.0 Not Available [facility] (Lab) [address] [place], [address], 09/16/2022 11:58:17 09/17/19 23 09/16/2022 CBC/C OMPLE TE BLD COUNT W/DIF F mean red cell hemoglobin 26.2 pg 27.0-3 3.0 low Not Available [facility] (Lab) [address] [place], [address], 09/16/2022 11:58:17 09/17/19 23 09/16/2022 CBC/C OMPLE TE BLD COUNT W/DIF F mean RBC HGB concentratio n 31.9 g/dL 31.0-3 6.0 Not Available [facility] (Lab) [address] [facility] [place], [address], 09/16/2022 11:58:17 09/17/19 23 09/16/2022 CBC/C OMPLE TE BLD COUNT W/DIF F red cell distribution width 14.2 % 11.8-1 5.5 Not Available [facility] (Lab) [address] [facility] [place], [address], 09/16/2022 11:58:17 09/17/19 23 09/16/2022 CBC/C OMPLE TE BLD COUNT W/DIF F platelets 327 x10'3 /uL 150-40 0 Not Available [facility] (Lab) [address] [place], [address], 09/16/2022 11:58:17 09/17/19 23 09/16/2022 CBC/C OMPLE TE BLD COUNT W/DIF F mean platelet volume 11.1 fL 9.0-12 .4 Not Available [facility] (Lab) [address] [place], [address], 09/16/2022 11:58:17 09/17/19 23 09/16/2022 CBC/C OMPLE TE BLD COUNT W/DIF F neutrophils 62.9 % 39.0-7 2.0 Not Available [facility] (Lab) [address] [place], [address], 09/16/2022 11:58:17 09/17/19 23 09/16/2022 CBC/C OMPLE TE BLD COUNT W/DIF F lymphocytes 24.3 % 16.0-4 7.0 Not Available [facility] (Lab) [address] [place], [address], 09/16/2022 11:58:17 09/17/19 23 09/16/2022 CBC/C OMPLE TE BLD COUNT W/DIF F monocytes 9.6 % 5.0-12 .0 Not Available [facility] (Lab) [address] [place], [address], 09/16/2022 11:58:17 09/17/19 23 09/16/2022 CBC/C OMPLE TE BLD COUNT W/DIF F eosinophils 2.2 % 1.0-7. 0 Not Available [facility] (Lab) [address] [place], [address], 09/16/2022 11:58:17 09/17/1909/16/2022 CBC/C OMPLE TE BLD COUNT W/DIF F basophils 0.6 % 0.0-2. 0 Not Available [facility] (Lab) [address] [place], [address], 09/16/2022 11:58:17 09/17/19 23 09/16/2022 CBC/C OMPLE TE BLD COUNT W/DIF F immature granulocytes 0.4 % 0.00-0 .50 Not Available [facility] (Lab) [address] [place], [address], 09/16/2022 11:58:17 09/17/19 23 09/16/2022 CBC/C OMPLE TE BLD COUNT W/DIF F neutrophils, absolute count 5.36 x10'3 /uL 1.5-8. 0 Not Available [facility] (Lab) [address] [place], [address], 09/16/2022 11:58:17 09/17/19 23 09/16/2022 CBC/C OMPLE TE BLD COUNT W/DIF F lymphocytes, absolute count 2.07 x10'3 /uL 1.07-3 .43 Not Available [facility] (Lab) [address] [place], [address], 09/16/2022 11:58:17 09/17/19 23 09/16/2022 CBC/C OMPLE TE BLD COUNT W/DIF F monocytes, absolute count 0.82 x10'3 /uL 0.29-0 .99 Not Available [facility] (Lab) [address] [place], [address], 09/16/2022 11:58:17 09/17/19 23 09/16/2022 CBC/C OMPLE TE BLD COUNT W/DIF F eosinophils, absolute count 0.19 x10'3 /uL 0.02-0 .53 Not Available [facility] (Lab) [address] [place], [address], 09/16/2022 11:58:17 09/17/19 23 09/16/2022 CBC/C OMPLE TE BLD COUNT W/DIF F basophils, absolute count 0.05 x10'3 /uL 0.01-0 .08 Not Available [facility] (Lab) [address] [place], [address], 09/16/2022 11:58:17 09/17/19 23 09/16/2022 CBC/C OMPLE TE BLD COUNT W/DIF F immature granulocytes ,absolute 0.03 x10'3 /uL 0.00-0 .05 Not Available [facility] (Lab) [address] [place], [address], 09/16/2022 11:58:17 09/17/19 23 09/16/2022 CBC/C OMPLE TE BLD COUNT W/DIF F nucleated red blood cells 0.0 % -0 Not Available [facility] (Lab) [address] [place], [address], 09/16/2022 11:58:17 09/17/19 23 09/16/2022 CBC/C OMPLE TE BLD COUNT W/DIF F NRBC# 0.00 x10'3 /uL Not Available [facility] (Lab) [address] [place], [address], 09/16/2022 11:58:17 09/17/19 23 09/16/2022 VITAM IN D 25-HY DROXY [id number] 28.0 NG/mL 30-100 low Vitam in D Statu s: Defic ient: <20 ng/mL Insuf ficie nt: 20-29 ng/mL Suffi cient : 30-10 0 ng/mL Not Available [facility] (Lab) [address] [place], [address], 09/16/2022 12:12:46 09/17/19 23 09/16/2022 T4 FREE free T4 1.23 NG/dL 0.78-2 .19 Not Available [facility] (Lab) [address] [place], [address], 09/16/2022 12:12:56 09/17/1909/16/2022 LIPID PANEL cholesterol 116 mg/dL 140-19 9 low NIH SUSY NSUS RECOM MENDA TION FOR EUGENE STERO L: ADULT CHILD LOW RISK: <200 <170 BORDE RLINE : <200- 239 ----- HIGH RISK: >240 >200 Not Available [facility] (Lab) [address] [place], [address], 09/16/2022 12:19:32 09/17/19 23 09/16/2022 LIPID PANEL triglyceride s 72 mg/dL 0-150 NIH SUSY NSUS REPOR T RECOM MENDA TION FOR TRIGL YCERI TRAE: ADULT CHILD LOW RISK: <150 ----- BODER LINE: 150-1 99 ----- HIGH RISK: >200 ----- Not Available [facility] (Lab) [address] [place], [address], 09/16/2022 12:19:32 09/17/19 23 09/16/2022 LIPID PANEL HDL cholesterol 56 mg/dL 40- Not Available [facility] (Lab) [address] [facility] [place], [address], 09/16/2022 12:19:32 09/17/19 23 09/16/2022 LIPID PANEL [...] WILL NOT BE REPOR ELLEN. Not Available [facility] (Lab) [address] [place], [address], 09/16/2022 12:19:32 09/17/19 23 09/16/2022 COMPR EHENS KYLE METAB OLIC PANEL sodium 137 mmol/ L 137-14 5 Not Available [facility] (Lab) [address] [place], [address], 09/16/2022 12:19:41 09/17/19 23 09/16/2022 COMPR EHENS KYLE METAB OLIC PANEL potassium 3.8 mmol/ L 3.5-5. 1 Not Available [facility] (Lab) [address] [place], [address], 09/16/2022 12:19:41 09/17/19 23 09/16/2022 COMPR EHENS KYLE METAB OLIC PANEL chloride 102 mmol/ L 98-107 Not Available [facility] (Lab) [address] [place], [address], 09/16/2022 12:19:41 09/17/19 23 09/16/2022 COMPR EHENS KYLE METAB OLIC PANEL carbon dioxide 26 mmol/ L 22-30 Not Available [facility] (Lab) [address] [place], [address], 09/16/2022 12:19:41 09/17/19 23 09/16/2022 COMPR EHENS KYLE METAB OLIC PANEL anion gap 12.8 mmol/ L 14-22 low Not Available [facility] (Lab) [address] [place], [address], 09/16/2022 12:19:41 09/17/19 23 09/16/2022 COMPR EHENS KYLE METAB OLIC PANEL glucose 130 mg/dL 70-99 high Not Available [facility] (Lab) [address] [place], [address], 09/16/2022 12:19:41 09/17/19 23 09/16/2022 COMPR EHENS KYLE METAB OLIC PANEL BUN 19 mg/dL 8-19 Not Available [facility] (Lab) [address] [place], [address], 09/16/2022 12:19:41 09/17/19 23 09/16/2022 COMPR EHENS KYLE METAB OLIC PANEL creatinine 1.06 mg/dL 0.66-1 .25 Not Available [facility] (Lab) [address] [place], [address], 09/16/2022 12:19:41 09/17/1909/16/2022 COMPR EHENS KYLE METAB OLIC PANEL GFR 53 Refer ence Range : [place] ge GFR Healt hy Adult : >60 [...] calcu lator is avail able on the [facility] websi te: https :[email or web address] [email or web address] celso/pr ofess ional [email or web address] qi/gf r_cal culat or Not Available [facility] (Lab) [address] [place], [address], 09/16/2022 12:19:41 09/17/19 23 09/16/2022 COMPR EHENS KYLE METAB OLIC PANEL alkaline phosphatase 87 U/L 38-126 Not Available [facility] (Lab) [address] [place], [address], 09/16/2022 12:19:41 09/17/19 23 09/16/2022 COMPR EHENS KYLE METAB OLIC PANEL alanine aminotransfe rase 28 U/L 0-35 Not Available [facility] (Lab) [address] [place], [address], 09/16/2022 12:19:41 09/17/19 23 09/16/2022 COMPR EHENS KYLE METAB OLIC PANEL aspartate aminotransfe rase 24 U/L 15-37 Not Available [facility] [facility] ([facility] [address] [place], [address], 09/16/2022 12:19:41 09/17/19 23 09/16/2022 COMPR EHENS KYLE METAB OLIC PANEL bilirubin, total 0.80 mg/dL 0.20-1 .30 Not Available [facility] (Lab) [address] [place], [address], 09/16/2022 12:19:41 09/17/19 23 09/16/2022 COMPR EHENS KYLE METAB OLIC PANEL calcium 9.4 mg/dL 8.4-10 .2 Not Available [facility] (Lab) [address] [place], [address], 09/16/2022 12:19:41 09/17/19 23 09/16/2022 COMPR EHENS KYLE METAB OLIC PANEL total protein 7.1 g/dL 6.3-8. 2 Not Available [facility] (Lab) [address] [place], [address], 09/16/2022 12:19:41 09/17/19 23 09/16/2022 COMPR EHENS KYLE METAB OLIC PANEL albumin 4.3 g/dL 3.4-5. 0 Not Available [facility] (Lab) [address] [place], [address], 09/16/2022 12:19:41 09/17/19 23 09/16/2022 COMPR EHENS KYLE METAB OLIC PANEL globulin 2.8 g/dL 2.6-4. 2 Not Available [facility] (Lab) [address] [place], [address], 09/16/2022 12:19:41 09/17/19 23 09/16/2022 COMPR EHENS KYLE METAB OLIC PANEL A/G ratio 1.5 ratio 1.0-2. 0 Not Available [facility] (Lab) [address] [place], [address], 09/16/2022 12:19:41 09/17/19 23 09/16/2022 URINA LYSIS COMPL ETE/I RIS W/RFX color YELLOW Not Available [facility] (Lab) [address] [place], [address], 09/16/2022 12:22:56 09/17/19 23 09/16/2022 URINA LYSIS COMPL ETE/I RIS W/RFX appear TURBID abnormal Not Available [facility] (Lab) [address] [place], [address], 09/16/2022 12:22:56 09/17/19 23 09/16/2022 URINA LYSIS COMPL ETE/I RIS W/RFX specific gravity 1.022 1.001- 1.030 Not Available [facility] (Lab) [address] [place], [address], 09/16/2022 12:22:56 09/17/19 23 09/16/2022 URINA LYSIS COMPL ETE/I RIS W/RFX pH 5.0 pH_un its 5.0-9. 0 Not Available [facility] (Lab) [address] [place], [address], 09/16/2022 12:22:56 09/17/19 23 09/16/2022 URINA LYSIS COMPL ETE/I RIS W/RFX leukocytes >/=500 mayra/u L negati ve- abnormal Not Available [facility] (Lab) [address] [place], [address], 09/16/2022 12:22:56 09/17/19 23 09/16/2022 URINA LYSIS COMPL ETE/I RIS W/RFX nitrite NEGATI VE negati ve- Not Available [facility] (Lab) [address] [place], [address], 09/16/2022 12:22:56 09/17/19 23 09/16/2022 URINA LYSIS COMPL ETE/I RIS W/RFX protein 10 mg/dL negati ve- abnormal Not Available [facility] (Lab) [address] [place], [address], 09/16/2022 12:22:56 09/17/19 23 09/16/2022 URINA LYSIS COMPL ETE/I RIS W/RFX glucose NORMAL mg/dL normal - Not Available [facility] (Lab) [address] [place], [address], 09/16/2022 12:22:56 09/17/19 23 09/16/2022 URINA LYSIS COMPL ETE/I RIS W/RFX ketones NEGATI VE mg/dL negati ve- Not Available [facility] (Lab) [address] [place], [address], 09/16/2022 12:22:56 09/17/19 23 09/16/2022 URINA LYSIS COMPL ETE/I RIS W/RFX urobilinogen NORMAL mg/dL normal - Not Available [facility] (Lab) [address] [place], [address], 09/16/2022 12:22:56 09/17/19 23 09/16/2022 URINA LYSIS COMPL ETE/I RIS W/RFX bilirubin NEGATI VE mg/dL negati ve- Not Available [facility] (Lab) [address] [place], [address], 09/16/2022 12:22:56 09/17/19 23 09/16/2022 URINA LYSIS COMPL ETE/I RIS W/RFX blood NEGATI VE mg/dL negati ve- Not Available [facility] (Lab) [address] [place], [address], 09/16/2022 12:22:56 09/17/19 23 09/16/2022 URINA LYSIS COMPL ETE/I RIS W/RFX white blood cells 9-20 /i??h pfi?? 0-8 abnormal Not Available [facility] (Lab) [address] [place], [address], 09/16/2022 12:22:56 09/17/19 23 09/16/2022 URINA LYSIS COMPL ETE/I RIS W/RFX red blood cells 5-10 /i??h pfi?? 0-4 abnormal Not Available [facility] (Lab) [address] [place], [address], 09/16/2022 12:22:56 09/17/19 23 09/16/2022 URINA LYSIS COMPL ETE/I RIS W/RFX bacteria NONE Not Available [facility] (Lab) [address] [place], [address], 09/16/2022 12:22:56 09/17/19 23 09/16/2022 URINA LYSIS COMPL ETE/I RIS W/RFX mucous OCCASI ONAL /i??l pfi?? abnormal Not Available [facility] (Lab) [address] [place], [address], 09/16/2022 12:22:56 09/17/19 23 09/16/2022 URINA LYSIS COMPL ETE/I RIS W/RFX squamous epithelial PACKED FIELD /i??l pfi?? abnormal Not Available [facility] (Lab) [address] [place], [address], 09/16/2022 12:22:56 09/17/19 23 09/16/2022 MICRO ALBUM N RNDM W/CRE AT RATIO ur creat 142.33 mg/dL REFER ENCE RANGE NOT ESTAB LISHE D FOR RANDO M URINE CREAT ININE Not Available [facility] (Lab) [address] [place], [address], 09/16/2022 12:38:10 09/17/19 23 09/16/2022 MICRO ALBUM N RNDM W/CRE AT RATIO microalbumin , urine 11.2 mg/L 0.0-16 .6 Not Available [facility] (Lab) [address] [place], [address], 09/16/2022 12:38:10 09/17/19 23 09/16/2022 MICRO ALBUM [...] VOL. 26: S94-S , 2002 Not Available [facility] (Lab) [address] [place], [address], 09/16/2022 12:38:10 09/17/19 23 09/16/2022 TSH thyroid-stim ulating hormone 1.370 uIU/m L 0.465- 4.680 Not Available [facility] (Lab) [address] [place], [address], 09/16/2022 12:38:54 09/17/19 23 09/16/2022 LUZ MARIA TIN ferritin 58 NG/mL 11.1-2 64 Not Available [facility] (Lab) [address] [place], [address], 09/16/2022 12:40:27 09/17/19 23 09/16/2022 FOLAT E, SERUM /PLAS MA folate 5.27 NG/mL 2.76-2 0.0 Not Available [facility] (Lab) [address] [place], [address], 09/16/2022 14:06:22 09/17/19 23 09/16/2022 VITAM IN B12 (CHRISSY EMELY ) vb12 >1000 pg/mL 239-93 1 high Not Available [facility] (Lab) [address] [place], [address], 09/16/2022 12:50:29 09/17/19 23 09/16/2022 HEMOG LOBIN A1C HA1C 6.4 % 4.0-6. 0 high Diabe vani Scree renita Crite doretha: <5.7% Consi stent with absen ce of diabe vani 5.7-6 .4% Consi stent with incre ased risk for diabe vani (pred iabet es) >OR=6 .5% Consi stent with diabe vani REFER ENCE: Diabe vani Care 2016, 39(Cruz ppl.1 ):s13 -s22 Not Available [facility] (Lab) [address] [place], [address], 09/16/2022 15:43:26 09/17/19 23 09/16/2022 CULTU RE URINE urc ===== ===== ===== ===== ===== ===== ===== ===== ===== ===== ===== ===== ===== ===== ===== ===== ===== ===== ===== ===== ===== ===== ===== ===== CULTU RE NO.: [id number] Exam Statu s: Final Exam Type: [...] furan toin 128 R 000M Not Available [facility] (Lab) [address] [place], [address], 09/18/2022 08:17:32 10/19/1910/18/2022 URINA LYSIS COMPL ETE, IRIS color LIGHT- YELLOW Not Available [facility] (Lab) [address] [place], [address], 10/18/2022 16:31:40 10/19/19 23 10/18/2022 URINA LYSIS COMPL ETE, IRIS appear TURBID abnormal Not Available [facility] (Lab) [address] [place], [address], 10/18/2022 16:31:40 10/19/19 23 10/18/2022 URINA LYSIS COMPL ETE, IRIS specific gravity 1.017 1.001- 1.030 Not Available [facility] (Lab) [address] [place], [address], 10/18/2022 16:31:40 10/19/19 23 10/18/2022 URINA LYSIS COMPL ETE, IRIS pH 5.0 pH_un its 5.0-9. 0 Not Available [facility] (Lab) [address] [facility] [place], [address], 10/18/2022 16:31:40 10/19/19 23 10/18/2022 URINA LYSIS COMPL ETE, IRIS leukocytes 250 mayra/u L negati ve- abnormal Not Available [facility] (Lab) [address] [place], [address], 10/18/2022 16:31:40 10/19/19 23 10/18/2022 URINA LYSIS COMPL ETE, IRIS nitrite NEGATI VE negati ve- Not Available [facility] (Lab) [address] [place], [address], 10/18/2022 16:31:40 10/19/19 23 10/18/2022 URINA LYSIS COMPL ETE, IRIS protein NEGATI VE mg/dL negati ve- Not Available [facility] (Lab) [address] [place], [address], 10/18/2022 16:31:40 10/19/19 23 10/18/2022 URINA LYSIS COMPL ETE, IRIS glucose NORMAL mg/dL normal - Not Available [facility] (Lab) [address] [place], [address], 10/18/2022 16:31:40 10/19/19 23 10/18/2022 URINA LYSIS COMPL ETE, IRIS ketones NEGATI VE mg/dL negati ve- Not Available [facility] (Lab) [address] [place], [address], 10/18/2022 16:31:40 10/19/19 23 10/18/2022 URINA LYSIS COMPL ETE, IRIS urobilinogen NORMAL mg/dL normal - Not Available [facility] (Lab) [address] [place], [address], 10/18/2022 16:31:40 10/19/19 23 10/18/2022 URINA LYSIS COMPL ETE, IRIS bilirubin NEGATI VE mg/dL negati ve- Not Available [facility] (Lab) [address] [place], [address], 10/18/2022 16:31:40 10/19/19 23 10/18/2022 URINA LYSIS COMPL ETE, IRIS blood 0.2 mg/dL negati ve- abnormal Not Available [facility] (Lab) [address] [place], [address], 10/18/2022 16:31:40 10/19/19 23 10/18/2022 URINA LYSIS COMPL ETE, IRIS white blood cells 9-20 /i??h pfi?? 0-8 abnormal Not Available [facility] (Lab) [address] [place], [address], 10/18/2022 16:31:40 10/19/19 23 10/18/2022 URINA LYSIS COMPL ETE, IRIS red blood cells 0-4 /i??h pfi?? 0-4 Not Available [facility] (Lab) [address] [place], [address], 10/18/2022 16:31:40 10/19/19 23 10/18/2022 URINA LYSIS COMPL ETE, IRIS bacteria NONE Not Available [facility] (Lab) [address] [place], [address], 10/18/2022 16:31:40 10/19/19 23 10/18/2022 URINA LYSIS COMPL ETE, IRIS mucous OCCASI ONAL /i??l pfi?? abnormal Not Available [facility] (Lab) [address] [place], [address], 10/18/2022 16:31:40 10/19/19 23 10/18/2022 URINA LYSIS COMPL ETE, IRIS squamous epithelial PACKED FIELD /i??l pfi?? abnormal Not Available [facility] (Lab) [address], [place], [address], 10/18/2022 16:31:40 04/21/20 23 04/21/2023 US, breas t, unila teral No observ ation record ed. [email or web address] [place] [address] [facility], [place], [address], 04/26/2023 10:21:22 04/21/20 23 04/21/2023 MAMMO , diagn ostic , digit al, bilat eral No observ ation record ed. [address] [facility], [place], [address], 04/25/2023 17:00:22 05/16/20 23 05/16/2023 biops y, breas t, w/ ultra sound maciel nce (PROC ) No observ ation record ed. [address] [address], [place], [address], 05/17/2023 12:31:42 05/26/20 23 05/16/2023 biops y, breas t, w/ ultra sound maciel nce (PROC ) No observ ation record ed. [address] (Imaging) [address] [place], [place] [address]e [facility], [place], [address], 05/30/2023 14:43:06 08/10/19 24 08/09/2023 MAMMO , diagn ostic , digit al, bilat eral No observ ation record ed. [address] [facility] [address], [place], [address], 09/22/2023 09:34:24 08/22/19 24 08/22/2023 US, breas t, unila teral No observ ation record ed. [address] [place], [address], 09/22/2023 09:39:14 09/14/19 24 09/14/2023 biops y, breas t, w/ ultra sound maciel nce (PROC ) No observ ation record ed. [email or web address] (Imaging) [address] [place] [address] [address], [place], [address], 12/27/2023 16:29:58 04/02/20 24 04/02/2024 imagi ng/di agnos tic resul t No observ ation record ed. [address], [place], [address], 04/02/2024 15:20:22 06/29/19 25 06/29/2024 imagi ng/di agnos tic resul t No observ ation record ed. [address], [place], [address], 06/29/2024 14:32:29 Result Notes None recorded. Problems Name Problem SNOMED Code Status Onset Date Resolution Date Notes Provider Name and Address Organization Details Recorded Time Vitamin D deficien cy 36732644 Active 2022 Connie Garcia APRN [address], [address], [address] , [facility] [employer] 4 07:57:58 Iron deficien cy 42645238 Active 2022 Connie Garcia APRN [address], [place] [address], [place], [address] , [facility] [employer] [facility] 4 07:57:49 Essentia l hyperten mari 13875663 Active 2022 Connie Garcia APRN [address], [address], [place], [address] , [place] [facility] [employer] [facility] 4 07:57:37 Cobalami n deficien cy 713722186 Active 2022 Connie Garcia APRN [address], [address], [place], [address] , [place] [facility] [place] [facility] 4 07:57:33 Menopaus al flushing 111257423 Active 2022 BLANKA Shaw, [place] [facility] [place] [facility] 3 09:19:55 Microalb uminuria 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 Active 2022 BLANKA [place], [place] [facility] [place] [facility] 3 09:19:55 Feeling irritabl e 93651746 Active 2022 BLANKA Shwa, [place] [facility] [place] [facility] 3 09:19:55 Basal cell carcinom a of face 859070772 Active 2022 BLANKA [place], [place] [facility] [place] [facility] 3 09:19:55 Type 2 diabetes mellitus 60749911 Active 2022 [place], [place] [facility] [place] [facility] 3 09:19:55 Type 2 diabetes mellitus without complica tion 372797547 Active 2022 BL[place]A [place], [place] [facility] [place] [facility] 3 09:19:55 Pain of right shoulder joint 53870570562 482292 Active 2022 BL[place]A [place], [place] [facility] [place] [facility] 3 09:19:55 Acute urinary tract infectio n 754465236 Active 2022 BL[place]A [place], [place] [facility] [place] [facility] 3 09:19:55 Iron deficien cy anemia 64091728 Active 2022 BL[place], [place] [facility] [place] [facility] 3 09:19:55 Anemia 313240447 Active 2022 Connie Garcia, [employer] [address], [address], [place], [address] , [place] [facility] [place] [facility] 4 07:57:20 Acute serous otitis media of left ear 78993721524 69837 Active 2022 [place], [place] [facility] [place] [facility] 3 09:19:54 Upper respirat ory infectio n 53741817 Active 2022 [place], [place] [facility] [place] [facility] 3 09:19:55 Hyperkal emia 85081816 Active 2021 BLANKA Shaw, [facility] [place] [facility] 3 09:19:55 Constipa tion 25162639 Active 2017 BLANKA Shaw, [facility] [place] [facility] 3 09:19:55 External hordeolu m 7797751 Completed Not Available [facility] 3 03:07:03 Acute sinusiti s 37554035 Active 2021 BLANKA Shaw, [facility] [place] [facility] 3 09:19:55 Backache 892741760 Completed Not Available [facility] 3 03:07:03 Blood glucose outside referenc e range 048651022 Completed Not Available [facility] 3 03:07:04 Plantar fasciiti s 727818156 Completed Not Available [facility] 3 03:07:04 Edema 521020668 Active BLANKA Shaw, [facility] [place] [facility] 3 09:19:55 Chest pain 35880534 Completed Not Available [facility] 3 03:07:04 Dysfunct ion of urinary bladder 06357563 Active 2020 overacti robert Garcia, [employer] [address] [facility], [place], [address] , [facility] [place] [facility] 4 07:57:23 Obesity 402901417 Active [place], [place] [facility] 3 09:19:55 Upper respirat ory infectio n 01776739 Completed Rea eddy, [place] [facility] 3 14:58:23 Breast tenderne ss 73616061 Completed Not Available [facility] 3 03:07:04 Hyperlip idemia 45150832 Active 2021 Connie Garcia APRN [address], [address], [place], [address] , [facility] [email or web address] [facility] 4 07:57:42 Urinary tract infectio us disease 00862453 Completed Not Available [facility] 3 03:07:05 Hemorrho ids 49149420 Active 2017 [place], [place] [facility] [place] [facility] 3 09:19:55 Diabetes mellitus 84317248 Active 2018 Connie Garcia APRN [address], [address], [place], [address] , [facility] 4 07:57:35 Breast lump 52333519 Active neg biopsy BLANKA Shaw, [place] [employer] [facility] [email or web address] [facility] 3 09:19:55 Conjunct ivitis 5751536 Active 2017 Claire Ceron MA null, [place] [employer] [facility] 3 09:19:55 Mass of left breast 95696288644 331740 Active 2022 [place], [place] [email or web address] [facility] 3 09:19:55 Mammogra phic mass of left breast 82826828664 616864 Active 2022 Claire Ceron MA null, [place] [employer] [facility] [place] [facility] 3 09:19:55 Cellulit is of axilla 31841205 Active Connie Garcia APRN [address], [address], [place], [address] , [facility] 4 12:22:00 Spasm 91803253 Active Connie Garcia APRN [address], [address], [place], [address] , [facility] [email or web address] [facility] 4 12:22:01 Viral disease 72412273 Active Connie Garcia APRN [address], [address], [place], [address] , [place] [employer] 12:23:56 Notes:Some problems listed i n Document: #[id number] could not be added to this patient's chart. Please review this document and add these problems to the patient's chart manually as needed. Problem Notes None recorded. Procedures Surgical History Date Name Laterality Status Provider Name and Address Organization Details Recorded Time 09/14/19 24 lumpectomy of left breast completed TEVIN Rowan [employer] 10/04/2023 15:02:50 07/29/19 22 excision of basal cell carcinoma completed Not Available [facility] 08/11/2022 03:00:19 delivery completed Not Available [facility] 08/11/2022 03:00:19 delivery completed Not Available [facility] 08/11/2022 03:00:19 Laparoscopic cholecystectomy completed Not Available [facility] 08/11/2022 03:00:19 RADIOLOGICAL TECHNOLOGIST Surgery completed Not Available [facility] 08/11/2022 03:00:19 Hysterectomy, Partial completed Not Available [facility] 08/11/2022 03:00:19 delivery completed Not Available [facility] 08/11/2022 03:00:19 Imaging Results Imaging Date Name Status LastModified by Organiz ation Details LastModified Time 04/21/2023 US, breast, unilateral completed [address] - [facility] Ctr [address], [place], [address], 04/26/2023 10:21:22 04/21/2023 MAMMO, diagnostic, digital, bilateral completed [address], [address], 04/25/2023 17:00:22 05/16/2023 biopsy, breast, w/ ultrasound guidance (PROC) completed [address], [address], 05/17/2023 12:31:42 05/16/2023 biopsy, breast, w/ ultrasound guidance (PROC) completed [address] (Imaging) [address] [place] [address], [address], 05/30/2023 14:43:06 08/09/2023 MAMMO, diagnostic, digital, bilateral completed [address] - [facility]tr [address], [place], [address], 09/22/2023 09:34:24 08/22/2023 US, breast, unilateral completed [address] [address], [place], [address], 09/22/2023 09:39:14 09/14/2023 biopsy, breast, w/ ultrasound guidance (PROC) completed [address] (Imaging) [address] [place] [address], [address], 12/27/2023 16:29:58 04/02/2024 imaging/diagnos tic result active [address] [address], [place], [address], 04/02/2024 15:20:22 06/29/2024 imaging/diagnos tic result active [address], [address], 06/29/2024 14:32:29 Procedure Notes None recorded. Medical Equipment None Reported. Allergies Allergen ID Allergen Name Allergen Category Reaction Reaction Severity Criticality Documentation Date Start Date Code Code System Note Provider Name and Address Organization Details Recorded Time 5661 Substance with sulfonami de structure and antibacte rial mechanism of action (substanc e) medicatio n Not available Not available Not available 08/11/2022 69550 8003 SNOMED Not Available [facility] 3 03:16:34 5662 fluconazo le medicatio n rash Not available Not available 08/11/2022 4450 RxNorm Not Available [facility] 3 03:16:34 Medications Name Sig Start Date Stop Date Status Note LastModified by Organization Details LastModified Time losartan 50 mg tablet TAKE 1 TABLET BY MOUTH EVERY DAY 2023 active Not Available Not Available Not Avai lable cyclobenz aprine 10 mg tablet TAKE 1 TABLET BY MOUTH EVERY 8 HOURS 04/23 /2024 completed Not Available Not Available Not Available [...] e 50 mcg/actua tion nasal spray,gabriel [employer] 2 sprays every day by intranas al [...] Not Available Not Available Not Available Accu-Chek Osfia Plus test strips TEST BID active Not [...] Updated DateTime 3 175.26 cm 44.7 kg/m2 230914. 49 g 97.4 [degF] 78 /min 98 % 98 % 132 mm[Hg] 76 mm[Hg] Claire Ceron, [place] [facility] [email or web address] [facility] 3 10:08:32 Date Recorded Body height Body mass index (BMI) Body weight Body temperature Heart rate Oxygen saturation Oxygen saturation in Arterial blood by Pulse oximetry Systolic blood pressure Diastolic blood pressure Provider Name and Address Organization Details Last Updated DateTime 3 175.26 cm 46.1 kg/m2 408333. 82 g 97.6 [degF] 68 /min 98 % 98 % 128 mm[Hg] 80 mm[Hg] Claire Ceron MA [facility] [employer] [facility] 3 11:38:56 Date Recorded Body height Body mass index (BMI) Body weight Body temperature Heart rate Oxygen saturation Oxygen saturation in Arterial blood by Pulse oximetry Systolic blood pressure Diastolic blood pressure Provider Name and Address Organization Details Last Updated DateTime 3 175.26 cm 45.5 kg/m2 428611. 45 g 97.8 [degF] 78 /min 98 % 98 % 132 mm[Hg] 80 mm[Hg] Claire Ceron MA [facility] [email or web address] [facility] 3 10:13:24 Date Recorded Body height Body mass index (BMI) Body weight Body temperature Heart rate Systolic blood pressure Diastolic blood pressure Provider Name and Address Organization Details Last Updated DateTime 4 175.26 cm 45.3 kg/m2 363701. 86 g 97.6 [degF] 78 /min 114 mm[Hg] 76 mm[Hg] TEVIN Rowan [facility] [email or web address] [facility] 4 15:05:39 Date Recorded Body height Body mass index (BMI) Body weight Body temperature Heart rate Oxygen saturation Oxygen saturation in Arterial blood by Pulse oximetry Pain severity - 0-10 verbal numeric rating [Score] - Reported Systolic blood pressure Diastolic blood pressure Provider Name and Address Organization Details Last Updated DateTime 4 175.26 cm 46.2 kg/m2 360945. 41 g 97.5 [degF] 78 /min 96 % 96 % 1 120 mm[Hg] 72 mm[Hg] Windy Khan MA [facility] [email or web address] [facility] 4 12:18:22 Social History Question Answer Notes LastModified by Organizat ion Details LastModified Time Tobacco Smoking Status Never Smoker Not Available [employer] 08/11/2022 02:41:39 Do You Have An Advance Directive? No MIGRATION.03551 02434 Information not available 08/11/2022 What Is Your Level Of Alcohol Consumption? Occasional MIGRATION.40415 69346 Information not available 08/11/2022 Are You Blind Or Do You Have Difficulty Seeing? No MIGRATION.34246 38361 Information not available 08/11/2022 What Is Your Level Of Caffeine Consumption? Heavy MIGRATION.33873 92460 Information not available 08/11/2022 How Much Tobacco Do You Chew? None MIGRATION.73478 46235 Information not available 08/11/2022 In The 14 Days Before Symptom Onset, Have You Had Close Contact With A Laboratory-confi rmed COVID-19 While That Case Was Ill? No MIGRATION.92717 54480 Information not available 08/11/2022 In The 14 Days Before Symptom Onset, Have You Had Close Contact With A Person Who Is Under Investigation For COVID-19 While That Person Was Ill? No MIGRATION.01848 65526 Information not available 08/11/2022 Are You Deaf Or Do You Have Serious Difficulty Hearing? No MIGRATION.35438 00499 Information not available 08/11/2022 What Type Of Diet Are You Following? REGULAR MIGRATION.29667 30890 Information not available 08/11/2022 Which Illicit Or Recreational Drugs Have You Used? None MIGRATION.15994 66775 Information not available 08/11/2022 Do You Or Have You Ever Used E-cigarettes Or Vape? Never Used Electronic Cigarettes MIGRATION.91982 36635 Information not available 08/11/2022 What Is The Highest Grade Or Level Of School You Have Completed Or The Highest Degree You Have Received? 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 No MIGRATION.23180 83290 Information not available 08/11/2022 Are There Any Guns Present In Your Home? Yes MIGRATION.30265 20047 Information not available 08/11/2022 Do You Use Insect Repellent Routinely? No MIGRATION.43263 49010 Information not available 08/11/2022 Where Do You Live? [place]LevelHouse MIGRATION.84620 73408 Information not available 08/11/2022 What Was The Date Of Your Most Recent Tobacco Screening? 02/23/2024 Information not available 02/23/2024 How Many Children Do You Have? 3 Information not available 02/23/2024 Do You Have Any Pets? No MIGRATION.67744 99710 Information not available 08/11/2022 What Is Your Relationship Status? MIGRATION.36852 66962 Information not available 08/11/2022 Do You Use Your Seat Belt Or Car Seat Routinely? Yes MIGRATION.18556 84471 Information not available 08/11/2022 Do You Have Smoke And Carbon Monoxide Detectors In Your Home? Yes MIGRATION.47220 46104 Information not available 08/11/2022 Are You Passively Exposed To Smoke? No MIGRATION.28913 72349 Information not available 08/11/2022 Do You Or Have You Ever Used Smokeless Tobacco? Never Used Smokeless Tobacco MIGRATION.87935 47579 Information not available 08/11/2022 Are There Any Smokers In Your House? No MIGRATION.77455 83740 Information not available 08/11/2022 How Much Tobacco Do You Smoke? No MIGRATION.61955 51430 Information not available 08/11/2022 Do You Feel Stressed (tense, Restless, Nervous, Or Anxious, Or Unable To Sleep At Night)? [id number] MIGRATION.49501 52797 Information not available 08/11/2022 Do You Use Any Illicit Or Recreational Drugs? No Information not available 02/23/2024 Do You Use Sunscreen Routinely? Yes MIGRATION.43931 33627 Information not available 08/11/2022 How Many Years Have You Smoked Tobacco? 0 MIGRATION.03959 05065 Information not available 08/11/2022 Have You Recently Traveled Abroad? No MIGRATION.82987 80783 Information not available 08/11/2022 Do You Have Any Dietary Restrictions? No MIGRATION.71014 22174 Information not available 08/11/2022 Do You Or Have You Ever Used Any Other Forms Of Tobacco Or Nicotine? No MIGRATION.62991 94867 Information not available 08/11/2022 Sex: Unknown Functional Status Question Answer Note LastModified by Organizat ion Details LastModified Time Do you have difficulty walking or climbing stairs? No MIGRATION.2148161 026 Information not available 08/11/2022 Do you have transportation difficulties? No MIGRATION.5787367 026 Information not available 08/11/2022 Are you able to walk? YESWOREST MIGRATION.3612996 026 Information not available 08/11/2022 Do you have difficulty doing errands alone? No MIGRATION.8011924 026 Information not available 08/11/2022 Are you able to care for yourself? Yes MIGRATION.4319216 026 Information not available 08/11/2022 Do you have difficulty dressing or bathing? No MIGRATION.3575308 026 Information not available 08/11/2022 What is your exercise level? None MIGRATION.4185748 026 Information not available 08/11/2022 Mental Status Question Answer Note LastModified by Organizat ion Details LastModified Time Do you have difficulty concentrating, remembering or making decisions? No MIGRATION.926489516 6 Information not available 08/11/2022 Family History Relationship Description Onset Age of this Age Resolved Age Notes LastModified by Organization Details LastModified Time Paternal Grandmother Heart disease MIGRATION.055 1092104 Not available 08/11/2022 03:00:21 Paternal Grandmother Diabetes mellitus MIGRATION.340 8955367 Not available 08/11/2022 03:00:21 Maternal Grandmother Heart disease MIGRATION.076 1730009 Not available 08/11/2022 03:00:21 Maternal Grandmother Diabetes mellitus MIGRATION.849 8220480 Not available 08/11/2022 03:00:21 Mother Diabetes mellitus MIGRATION.161 3860455 Not available 08/11/2022 03:00:21 Mother Malignant neoplastic disease MIGRATION.490 3067547 Not available 08/11/2022 03:00:21 Sister Diabetes mellitus MIGRATION.644 9778113 Not available 08/11/2022 03:00:21 Brother Diabetes mellitus MIGRATION.731 4590706 Not available 08/11/2022 03:00:21 Brother Depressive disorder bipola r MIGRATION.017 5925869 Not available 08/11/2022 03:00:21 Father Malignant neoplastic disease MIGRATION.135 0382980 Not available 08/11/2022 03:00:21 Medical History Condition Response BLINDNESS N NERVE DISEASE N RHEUMATIC FEVER N BLADDER PROBLEMS N KIDNEY STONES N OTHER # 1 N POLIO N LUNG DISEASE/DISORDER N RADIATION / CHEMOTHERAPY N COPD N Other # 2 N BLOOD DISEASES N SURGERY N EAR OR HEARING PROBLEMS N MUMPS N BOWEL PROBLEMS N DEPRESSION (INCLUDING POST ) N STROKE/TIA N ULCERS N BENIGN PROSTATIC HYPERPLASIA N MEASLES N MYOCARDIAL INFARCTION N OBESITY Y GERD/NAUSEA N ANEURYSM N URINARY/BLADDER/KIDNEY PROBLEMS Y INPATIENT PSYCH CARE N CORONARY ARTERY DISEASE (CAD) N ADDICTION CONCERNS N ENDOMETRIOSIS N Impotence N USE OF BLOOD THINNERS N SKIN [...] APNEA N CHICKENPOX N INFECTIOUS DISEASE N HEART ARRHYTHMIA N PROSTATE N INSOMNIA N HIGH CHOLESTEROL / HYPERLIPIDEMIA N HYPERTHYROIDISM N EYE PROBLEMS N NEUROLOGICAL PROBLEMS N EDEMA N CHRONIC PAIN SYNDROME N HYPOTHYROIDISM N CAROTID BLOCKAGE N CONSTIPATION N BACK / NECK PROBLEMS N HAVE YOU BEEN HOSPITALIZED OR SEEN IN [facility] ER IN THE PAST YEAR ? N ATHEROSCLEROSIS N BREAST PROBLEMS N DIALYSIS N ECZEMA N OSTEOPOROSIS N ARTHRITIS N APPENDICITIS N DIABETES, TYPE Y BAD TEETH N ENT N HEARTBURN / REFLUX N AUTISM SPECTRUM DISORDER (ASD) N HEPATITIS / LIVER DISEASE N PULMONARY DISEASE N GOUT N SLEEP DISORDER N ALZHEIMER'S DISEASE N Brain Problems N HERPES N DEMENTIA N HEADACHES/MIGRAINES N SEIZURES/EPILEPSY N VASCULAR DISEASE N PACEMAKER N Blood Disorder N DIZZINESS N HEART DISEASE/HEART PROBLEMS N KIDNEY DISEASE N MULTIPLE SCLEROSIS N CARDIAC ARRHYTHMIA N CANCER: SPECIFY N ANESTHESIA COMPLICATIONS N ATRIAL FIBRILLATION N [...] dose 08/07/2020 completed Connie Garcia APRN [address], [address], [place] [facility] 12/28/2023 12:22:52 COVID-19, mRNA, LNP-S, PF, 30 mcg/0.3 mL dose 07/17/2020 completed Connie Garcia APRN [address] [facility] [place] [place] [address], [place], [address], [place] [facility] [email or web address] 12/28/2023 12:22:52 Past Encounters Encounter ID Performer Location Encounter Start Date Encounter Closed Date Diagnosis/Indication Diagnosis SNOMED-CT Code Diagnosis ICD10 Code Diagnosis Note [id number] [facility] [address] [address] [place] [address] 09/25/2020 00:00:00 09/25/2020 16:49:51 [id number] [facility] [address] [place] [address] 11/25/2020 00:00:00 11/25/2020 14:11:06 [id number] [facility] [address] [place] [address] [address] [place] [address] 01/08/2021 00:00:00 01/08/2021 20:35:31 [id number] [facility] [address] [place] [address] [address] [place] [address] 02/19/2021 00:00:00 02/19/2021 19:07:09 [id number] [facility] [place] [address] [place], [place] [address]e., [address] [place] [address] 03/31/2021 00:00:00 03/31/2021 13:02:26 [id number] [facility] [address] [place], [place] [address]., [address] [place] [address] 05/01/2021 00:00:00 05/01/2021 13:58:36 [id number] [facility] [address] [place], [place] [address]., [address] [address] 06/11/2021 00:00:00 06/11/2021 17:23:07 [id number] [facility] [address] [place] [address] [address] [place] [address] 07/10/2021 00:00:00 07/10/2021 13:39:12 [id number] [facility] [address] [place], [place] [address]., [address] [place] [address] 08/31/2021 00:00:00 08/31/2021 17:13:10 [id number] [facility] [address] [place] [address] Ave[address] [address] 10/01/2021 00:00:00 10/01/2021 10:56:14 [id number] [facility] [address] [address] 10/12/2021 00:00:00 10/12/2021 15:02:20 [id number] [facility] [address] [address] 01/19/2022 00:00:00 01/19/2022 13:55:41 [id number] [facility] [address] [address] 02/22/2022 00:00:00 02/22/2022 13:03:09 [id number] [facility] [address] [address] 05/11/2022 00:00:00 05/11/2022 13:13:00 [id number] Cristy Hercules, ANCELMO-[facility] [facility] [address] [address] 09/16/2022 09:57:11 09/16/2022 10:36:24 Hyperlipidemia 15089699 E78.5 on rosuvastat in Vitamin D deficiency 347 19261 E55.9 on supplement Iron deficiency 77137907 E61.1 on iron Essential hypertension 83062562 I10 on losartan, HCTZ Cobalamin deficiency 190 437559 E53.8 on B12 injections monthly Menopausal flushing 1983 59284 N95.1 s/p labs- get appt with RADIOLOGICAL TECHNOLOGIST, has been referred multiple times Screening mammography 24 642258 Z12.31 Has order -again encouraged her to schedule this Basal cell carcinoma of face 121047761 C44.310 following derm- Dr. Portillo History of polyp of colon 669286173 Z86.010 next due 06/2025 Microalbuminuria 5637756 06 R80.9 mild, continue tight sugar control Feeling irritable 774506 07 R45.4 she stopped the wellbutrin , did not feel it helpsdoes not want to try any other mood medscall office if any change in mood or behaviorsh e declines psychiatry referral today Noncomplia nce with medication regimen 349824558 Z91.14 again we have discussed the risks of her choosing not to complete her medical screenings , up to and including cancer and/or deathI have also discussed with her that it is difficult for me to appropriat nelly manage her medication s when she does not get her regular lab work done Obesity 170639228 E66.9 recommend healthy, well balanced mealsfocus on lean meats, fresh vegetables , fresh fruits, whole grainsredu ce fast/proce ssed foods or eating out to no more than 1-2 times per weekaim to get 30 min of exercise most days of the week- walking is a great choice 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 956087569 E11.9 on metformin, trulicity, glimepirid eRequestin g [...] for 150g carbs/day spilt across meals, recommend [employer] to track food, 30 min of exercise most days of the week with goal of at least 150 min/week Postmenopausal state 764 29423 Z78.0 again ordered, encouraged [id number] ANCELMO [facility] [address] [facility], [address] [place] [address] 12/24/2022 11:30:58 12/24/2022 12:12:58 Hyperlipidemia 31639668 E78.5 on rosuvastat in Vitamin D deficiency 347 48933 E55.9 on supplement Iron deficiency 64586699 E61.1 on iron Essential hypertension 79177180 I10 on losartan, HCTZ Cobalamin deficiency 190 471478 E53.8 on B12 injections monthlydoe s not want PO supplement as insurance will not pay for it, does not want to buy OTC Menopausal flushing 1983 07977 N95.1 s/p labs- get appt with RADIOLOGICAL TECHNOLOGIST, has been referred multiple times Screening mammography 24 385903 Z12.31 Has order -again encouraged her to schedule this Basal cell carcinoma of face 962152107 C44.310 following derm- Dr. Portillo History of polyp of colon 667487337 Z86.010 next due 06/2025 Microalbuminuria 2757201 06 R80.9 mild, continue tight sugar control Feeling irritable 735748 07 R45.4 she stopped the wellbutrin , did not feel it helpsdoes not want to try any other mood medscall office if any change in mood or behaviorsh e declines psychiatry referral today Noncomplia nce with medication regimen 439622601 Z91.148 again we have discussed the risks of her choosing not to complete her medical screenings , up to and including cancer and/or deathI have also discussed with her that it is difficult for me to appropriat nelly manage her medication s when she does not get her regular lab work done Obesity 645652090 E66.9 recommend healthy, well balanced mealsfocus on lean meats, fresh vegetables , fresh fruits, whole grainsredu ce fast/proce ssed foods or eating out to no more than 1-2 times per weekaim to get 30 min of exercise most days of the week- walking is a great choice 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 536930491 E11.9 on metformin, glimepirid e, increase ozempic [...] for 150g carbs/day spilt across meals, recommend [employer] to track food, 30 min of exercise most days of the week with goal of at least 150 min/week Postmenopausal state 764 86687 Z78.0 again ordered, encouraged Referral needed 39992446 9 Z76.89 Acute sero us otitis media of left ear 8139061015 860758 H65.02 start flonase, OTC zyrtec or claritinca office if no improvemen t after meds [id number] Cristy Hercules, MED SURG RN-C [facility] [address] , [address] [place] [address] 03/25/2023 09:57:01 03/25/2023 10:37:01 Adult health examination 492861589 Z00.01 Hyperlipidemia 93401300 E78.5 on rosuvastat in Vitamin D deficiency 347 46454 E55.9 on supplement Iron deficiency 68793883 E61.1 on iron Essential hypertension 14408875 I10 on losartan, HCTZ Cobalamin deficiency 190 064091 E53.8 on B12 injections monthlydoe s not want PO supplement as insurance will not pay for it, does not want to buy OTC Menopausal flushing 1983 86578 N95.1 s/p labs- get appt with RADIOLOGICAL TECHNOLOGIST, has been referred multiple times Basal cell carcinoma of face 523358655 C44.310 following derm- Dr. Portillo History of polyp of colon 307258827 Z86.010 next due 06/2025 Microalbuminuria 2210289 06 R80.9 mild, continue tight sugar control Feeling irritable 190359 07 R45.4 she stopped the wellbutrin , did not feel it helpsdoes not want to try any other mood medscall office if any change in mood or behaviorsh e declines psychiatry referral today Noncomplia nce with medication regimen 660025087 Z91.148 again we have discussed the risks of her choosing not to complete her medical screenings , up to and including cancer and/or deathI have also discussed with her that it is difficult for me to appropriat nelly manage her medication s when she does not get her regular lab work done Obesity 733343682 E66.9 recommend healthy, well balanced mealsfocus on lean meats, fresh vegetables , fresh fruits, whole grainsredu ce fast/proce ssed foods or eating out to no more than 1-2 times per weekaim to get 30 min of exercise most days of the week- walking is a great choice 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 633012443 E11.9 on metformin, glimepirid e, ozempic pt [...] for 150g carbs/day spilt across meals, recommend [employer] to track food, 30 min of [...] labs was much improved. Postmenopausal state 764 58331 Z78.0 again ordered, encouraged Referral needed 32495295 9 Z76.89 Mass of left breast 1224 495343 9270047 N63.20 none felt today, but will order diagnostic mammogram and u/s as she does have family history of breast cancer Depression screening 171 834875 Z13.31 [id number] Connie Garcia APRN [facility] [place] [address] [facility] [address] [place] [address] 10/04/2023 14:51:59 10/04/2023 15:31:53 Cobalamin deficiency 651639756 E53.8 Essential hypertension 75337623 I10 Hyperlipidemia 79641856 E78.5 Iron deficiency 69284816 E61.1 Vitamin D deficiency 347 87373 E55.9 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 035967405 E11.9 Acute sinusitis 09460165 J01.90 [id number] Connie Garcia APRN [facility] [place] [address] [facility] [address] [place] [address] 02/23/2024 12:03:15 02/23/2024 12:49:18 Diabetes mellitus 00678091 E11.9 Hyperlipidemia 20971572 E78.5 Iron deficiency 27817179 E61.1 Vitamin D deficiency 347 35235 E55.9 Cobalamin deficiency 190 842084 E53.8 Acute sero us otitis media of left ear 5662328932 944389 H65.02 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 330659933 E11.9 Essential hypertension 23628811 I10 Hepatitis C screening 41 9702841 Z11.59 Health Concerns Section Related Observation LastModified by Organization Detai ls LastModified Time None Recorded Concern Status LastModified by Organization Details LastModified Time None Recorded Advance Directives Directive N: Payers Encounter Date Sequence Insurance Name Policy Number Policy Crad Covered Member ID Card Member ID Guarantor Name 09/16/2022 1 [place] [id number] Hui A Victor Hugo [id number] Jennifer Victor Hugo 09/16/2022 2 [facility] ON OR AFTER 12/11/20 (MEDICAID REPLACEMENT - HMO) Jennifer Victor Hugo [id number] Jennifer Victor Hugo 12/24/2022 1 [place] [id number] Hui A Victor Hugo [id number] Jennifer Victor Hugo 12/24/2022 2 [facility] ON OR AFTER 12/11/20 (MEDICAID REPLACEMENT - HMO) Jennifer Victor Hugo [id number] Jennifer Victor Hugo 03/25/2023 1 [place] [id number] Hui A Victor Hugo [id number] Jennifer Victor Hugo 03/25/2023 2 [facility] - DOS ON OR AFTER 20 (MEDICAID REPLACEMENT - HMO) Jennifer Victor Hugo [id number] Jennifer Victor Hugo 10/04/2023 1 [place] [id number] Hui A Victor Hugo [id number] Jennifer Victor Hugo 10/04/2023 2 [facility] - DOS ON OR AFTER 20 (MEDICAID REPLACEMENT - HMO) Jennifer Victor Hugo [id number] Jennifer Victor Hugo 02/23/2024 1 [place] [id number] Hui Gay [id number] Jennifer Gay 02/23/2024 2 [facility] - DOS ON OR AFTER 20 (MEDICAID REPLACEMENT - HMO) Jennifer Gay [id number] Jennifer Gay Notes Date Note Type Note [...] procedure. She still has not gone to RADIOLOGICAL TECHNOLOGIST for her WWE. She has been referred multiple times. She has not been coming in for her B12 shots. She would like to get 1 today. She is due for labs. Cristy Hercules, MED SURG RN-C [address] [facility], [address], [place], [address], [facility] [email or web address] 09/16/2022 11:15:51 12/24/2022 text/html Jennifer present s today for follow-up. She did get her colonoscopy done. She reports she did have an appointment for her mammogram and DEXA but she ended up missing that. She plans to reschedule that next week. She still has not gotten an appointment with the cotton ginner helper despite multiple referrals from me. She has [...] she does not want to purchase some [id number]. She will instead continue to come in for her B12 injections. Her mood remains stable off of mood medication. She denies any SI or HI today. Her blood pressures been well controlled at home. She complains today of left ear fullness. Denies any pain, fever, or drainage. BING Mccullough [address], [address], [place], [address], [facility] 12/24/2022 15:04:56 03/25/2023 text/html Jennifer present s today for follow-up. She is also due for her annual wellness exam. She is still has not done her mammogram her bone density or seen a senior interaction designer. I have been ordering these repeatedly for [...] B12 shot today. BING Mccullough [address], [address], [place], [address], [place] [facility] 03/25/2023 11:36:35 10/04/2023 text/html Jennifer present s today to establish care. Patient states that she recently had a lumpectomy in left breast with 3 lymph nodes removed. She states that it came back as cancer but she is waiting for the grading process. 03/25/2023Jennfier presents today for follow-up. She is also due for her annual wellness exam. She is still has not done her mammogram her bone density or seen a senior interaction designer. I have been ordering these repeatedly for [...] to get her B12 shot today. Connie Garcia APRN [address], [address], [place], [address], [place] [facility] 10/04/2023 15:29:49 02/23/2024 text/html Jennifer present s [...] mammogram her bone density or seen a senior interaction designer. I have been ordering these repeatedly for [...] get her B12 shot today. Connie Garcia, OPENSTACK CLOUD CONSULTING ARCHITECT [address] [facility], [address], [place], [address], [place] [facility] 02/23/2024 12:47:33 OBGyn Episode No OBEpisode recorded.
--- OUTSIDE RECORDS SUMMARY | 2024-07-18 07:40 | XMS_ITS | Encounter Summary ---
Author Organization [facility] Address [address] [place] [address] Care Team Providers Care Roguer Name Role Phone Joni Walker MD Primary Care Provider [phone] Encounter Details Date Type Department Care Team (Late st Contact Info) Description 02/28/2007 Outpatient Historical [facility] Primary Care - [address] [place] [address] Joni Walker MD [address] [facility] [address] [address] Social History Tobacco Use Types Packs/Day Years Used Date Smoking Tobacco: Never Assessed Comments Unknown Sex and Gender Information Value Date Recorded Sex Assigned at Not on file Legal Sex Female 4:38 AM VACUUM REPAIRER Gender Identity Not on file Sexual Orientation Not on file documented as of this encounter Plan of Treatment Upcoming Encounters Date Type Department Care Team (Late st Contact Info) Description 08/28/2024 10:15 AM CDT Office Visit [facility] Oncology and Hematology - [place] [place] [address] Diogo Benítez MD [address] [facility] [address] [place] [address] documented as of this encounter Visit Diagnoses Not on filedocumented in this encounter Care Teams Roguer Relationship Specialty Start Date End Date Joni Walker MD [address] [facility] [address] [address] PCP - General 03/01/00 documented as of this encounter
--- OUTSIDE RECORDS SUMMARY | 2024-07-18 07:40 | XMS_ITS | Clinical Summary ---
Author Organization [facility] Address [address] [place] [address] Care Team Providers Care Animal Care Worker Name Role Phone Joni Walker MD Primary Care Provider [phone] Allergies Active Allergy Reactions Criticality Noted Date Comments Sulfa (Sulfonamide Antibiotics) Rash Low 10/12 Medications hydrochlorothia zide 25 mg Oral Tab Take 1 Tab by mouth daily. 90 Tab 3 9 Active semaglutide (Ozempic) 0.25 mg or 0.5 mg(2 mg/1.5 mL) Pen Injector Inject by subcutaneous injection. Active glimepiride (AMARYL) 2 mg tablet Take 2 mg by mouth daily with breakfast. Active losartan (COZAAR) 50 mg tablet Take 50 mg by mouth daily. Active rosuvastatin (CRESTOR) 10 mg tablet Take 10 mg by mouth daily. Active metFORMIN (GLUCOPHAGE) 500 mg tablet Take 1,000 mg by mouth 2 times daily with meals. Active anastrozole (Arimidex) 1 mg tablet Take 1 Tablet (1 mg) by mouth daily. 90 Tablet 2 4 Active Active Problems Problem Noted Date Diagnosed Date Chronic sinusitis 09/02/2008 GERD (gastroesophageal reflux disease) 9 Acute bronchitis 07/20/2007 Routine general medical exam ination at a health care facility 02/28/2007 Hematuria 01/23/2007 Overview (07/08/2010): Updating IMO/ICD9 Code and Description Edema 10/18/2006 Contact dermatitis and other eczema due to deter gents 03/24/2006 Otalgia, unspecified 12/17/2005 Open wound of knee, leg (exc ept thigh), and ankle, without mention of complication 12/17/2005 Family history of other endo crine and metabolic diseases(V18.19) 12/17/2005 Overview (07/08/2010): Updating IMO/ICD9 Code and Description Need for prophylactic vaccin ation with tetanus-diphtheria (Td) 12/17/2005 Acute sinusitis, unspecified 07/14/2005 Acute upper respiratory infections of unspecifie d site 07/06/2005 Plantar fascial fibromatosis 11/19/2004 Encounters Date Type Department Care Team Description 07/04/2024 External Device Data STL ABSTRACTION Provider, Abstract 07/04/2024 External Device Data [facility] ABSTRACTION Provider, Abstract 07/03/2024 Telephone [facility] [address] [place] [address] Diogo Benítez MD Breast Biopsy 06/29/2024 Orders Only [facility] [address] [place] [address] Diogo Benítez MD Malignant neoplasm of left breast in female, estrogen receptor positive, unspecified site of breast (CMS/HCC) (Primary Dx) 06/19/2024 External Device Data STL ABSTRACTION Provider, Abstract 04/27/2024 8:30 AM VIBRATOR EQUIPMENT TESTER Office Visit [facility] [address] [place] [address] Diogo Benítez MD Malignant neoplasm of left breast in female, estrogen receptor positive, unspecified site of breast (CMS/HCC) (Primary Dx) from Last 3 Months Immunizations Immunization Administration Dates Next Due (TDVAX)(7 YRS UP) TETANUS AN D DIPHTHERIA TOXOIDS, ADSORBED (2 LF OF TETANUS TOXOID AND 2 LF OF DIPHTHERIA TOXOID), 0.5ML (PF), IM 12/17/2005 Family History Medical History Relation Name Comments Heart Disease Brother 1 Lung Cancer Father Diabetes Mother Breast Cancer Sister 1 Diabetes Sister 1 Heart Disease Sister 1 Diabetes Sister 2 Relation Name Status Comments Brother 1 Brother 2 Alive Brother 3 Alive Daughter Alive Father Mother Sister 1 Alive Sister 2 Alive Son 1 Alive Son 2 Alive Social History Tobacco Use Types Packs/Day Years Used Date Smoking Tobacco: Never Smokeless Tobacco: Never Tobacco Cessation:Counseling Given: Not Answered Alcohol Use Standard Drinks/Week Comments Yes 0 (1 standard drink = 0.6 oz pur e alcohol) occasional Comments No Sex and Gender Information Value Date Recorded Sex Assigned at Not on file Legal Sex Female 4:38 AM VIBRATOR EQUIPMENT TESTER Gender Identity Not on file Sexual Orientation Not on file Last Filed Vital Signs Vital Sign Reading Time Taken Comments Blood Pressure 125/67 04/27/2024 8:42 AM VIBRATOR EQUIPMENT TESTER Pulse 69 04/27/2024 8:39 AM VIBRATOR EQUIPMENT TESTER Temperature 36.7 ??C (98 ??F) 04/27/2024 8:39 AM VIBRATOR EQUIPMENT TESTER Respiratory Rate 16 04/27/2024 8:39 AM VIBRATOR EQUIPMENT TESTER Oxygen Saturation 95% 04/27/2024 8:39 AM VIBRATOR EQUIPMENT TESTER Inhaled Oxygen Concentration - - Weight 144.2 kg (317 lb 12.8 oz) 04/27/2024 8:39 AM VIBRATOR EQUIPMENT TESTER Height 179.1 cm (5' 10.5 ) 10/12/2023 3:02 PM CD T Body Mass Index 44.96 10/12/2023 3:02 PM CDT Plan of Treatment Upcoming Encounters Date Type Department Care Team (Late st Contact Info) Description 08/28/2024 10:15 AM CDT Office Visit [facility] [place] [address] [facility] [address] [place] [address] Diogo Benítez MD [address] [facility] [address] [place] [address] Health Maintenance Due Date Last Done Comments DIABETES ANNUAL FOOT EXAM 1979 DIABETES ANNUAL RETINAL EXAM 1979 DIABETES HBA1C Q 6 MONTHS 1979 DIABETES MICROALBUMIN ANNUAL SCREEN 1979 DTAP/TDAP/TD VACCINES (1 - Tdap) 12/18/2005 12/18/19 06 COLORECTAL SCREENING 2006 Colorectal Cancer Screening 2006 FIT-DNA Q 3 years 2006 FIT/FOBT Q 1 year 2006 Flex Sig/CT Colonography Q 5 years 2006 LDL CHOLESTEROL ANNUAL 02/29/2008 02/28/2007 CERVICAL CANCER SCREENING 05/13/2010 05/13/2007 ZOSTER VACCINE (1 of 2) 2011 RSV VACCINE (60+ or ) (1 - Risk 60-74 years 1-dose series) 2021 INFLUENZA VACCINE (#1) 2024 COVID-19 Vaccine (3 season) 2024, 07/17/2020 Preventative Visit- Commercial 06/13/2024 02/28/2007 BREAST CANCER SCREENING 06/29/2025 06/29/2024, 04/13 Procedures Procedure Name Priority Date/Time Associated Diagnosis Comments MAMMO BILAT DIAGNOSTIC Routine 06/29/2024 1:40 PM VIBRATOR EQUIPMENT TESTER LIPID PANEL Routine 02/28/2007 3:50 PM CDT from Last 3 Months or Most Recently Relevant to Health Maintenance Results * MAMMO BILAT DIAGNOSTIC (06/29/2024 1:40 PM VIBRATOR EQUIPMENT TESTER) Anatomical Region Laterality Modality Breast Bilateral Other us Diogo Benítez MD MAMMO ORDERABLES Final Result * (ABNORMAL) LIPID PANEL (02/28/2007 3:50 PM [...] classifications for lipids are available on the [facility] Intranet at: [email or web address] Select: Lab Policies and Procedures,Current Select: Lipid Panel Interpretation 02/28/2007 3:50 PM CDT us Joni Walker MD CHEMISTRY ORDERABLES Edited INTERFACE SYSTEM Refer to clinic/hospital department from Last 3 Months or Most Recently Relevant to Health Maintenance Insurance BS BLUE ACCESS/TRUE BLUE PPO Care Teams Animal Care Worker Relationship Specialty Start Date End Date Joni Walker MD [address] [facility] [address] [phone] [facility] - General 03/01/00
--- OUTSIDE RECORDS SUMMARY | 2024-07-18 07:40 | XMS_ITS | Encounter Summary ---
Author Organization [facility] Address [address] [place] [address] Care Team Providers Care Director Of Student Financial Services Name Role Phone Joni Walker MD Primary Care Provider [phone] Encounter Details Date Type Department Care Team (Late st Contact Info) Description 10/18/2006 Outpatient Historical [facility] Primary Care - [address] [place] [address] Joni Walker MD [address] [facility] [address] [address] Social History Tobacco Use Types Packs/Day Years Used Date Smoking Tobacco: Never Assessed Comments Unknown Sex and Gender Information Value Date Recorded Sex Assigned at Not on file Legal Sex Female 4:38 AM MOBILE DEVICE ENGINEER Gender Identity Not on file Sexual Orientation Not on file documented as of this encounter Plan of Treatment Upcoming Encounters Date Type Department Care Team (Late st Contact Info) Description 08/28/2024 10:15 AM CDT Office Visit [facility] Oncology and Hematology - [place] [address] [place] [address] Diogo Benítez MD [address] [facility] [address] [place] [address] documented as of this encounter Visit Diagnoses Not on filedocumented in this encounter Care Teams Director Of Student Financial Services Relationship Specialty Start Date End Date Joni Walker MD [address] [facility] [address] [address] PCP - General 03/01/00 documented as of this encounter
--- OUTSIDE RECORDS SUMMARY | 2024-07-18 07:41 | XMS_ITS | Encounter Summary ---
Author Organization [facility] Address [address] [place] [address] Care Team Providers Care Health Care Analyst Name Role Phone Joni Walker MD Primary Care Provider [phone] Encounter Details Date Type Department Care Team (Late st Contact Info) Description 03/24/2006 Outpatient Historical [facility] Primary Care - [address] [place] [address] Joni Walker MD [address] [facility] [address] [address] Social History Tobacco Use Types Packs/Day Years Used Date Smoking Tobacco: Never Assessed Comments Unknown Sex and Gender Information Value Date Recorded Sex Assigned at Not on file Legal Sex Female 4:38 AM SILICA DRY PRESS HELPER Gender Identity Not on file Sexual Orientation Not on file documented as of this encounter Last Filed Vital Signs Vital Sign Reading Time Taken Comments Blood Pressure 120/84 03/24/2006 10:00 AM CDT Pulse - - Temperature 36.8 ??C (98.2 ??F) 03/24/2006 10:00 AM C DT Respiratory Rate - - Oxygen Saturation - - Inhaled Oxygen Concentration - - Weight 116.1 kg (256 lb) 03/24/2006 10:00 AM CDT Height - - Body Mass Index - - documented in this encounter Plan of Treatment Upcoming Encounters Date Type Department Care Team (Late st Contact Info) Description 08/28/2024 10:15 AM CDT Office Visit [facility] Oncology and Hematology - [address] [place] [address] Diogo Benítez MD [address] [facility] [address] [place] [address] documented as of this encounter Visit Diagnoses Not on filedocumented in this encounter Care Teams Health Care Analyst Relationship Specialty Start Date End Date Joni Walker MD [address] [facility] [address] [address] PCP - General 03/01/00 documented as of this encounter
--- OUTSIDE RECORDS SUMMARY | 2024-07-18 07:41 | XMS_ITS | Encounter Summary ---
Author Organization [facility] Address [address] [place] [address] Care Team Providers Care Motor Vehicle Light Assembler Name Role Phone Joni Walker MD Primary Care Provider [phone] Encounter Details Date Type Department Care Team (Late st Contact Info) Description 10/02/2002 Outpatient Historical [facility] Primary Care - [address] [place] [address] Joni Walker MD [address] [facility] [address] [address] Social History Tobacco Use Types Packs/Day Years Used Date Smoking Tobacco: Never Assessed Comments Unknown Sex and Gender Information Value Date Recorded Sex Assigned at Not on file Legal Sex Female 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 Gender Identity Not on file Sexual Orientation Not on file documented as of this encounter Plan of Treatment Upcoming Encounters Date Type Department Care Team (Late st Contact Info) Description 08/28/2024 10:15 AM CDT Office Visit [facility] Oncology and Hematology - [place] [address] [place] [address] Diogo Benítez MD [address] [facility] [address] [place] [address] documented as of this encounter Visit Diagnoses Not on filedocumented in this encounter Care Teams Motor Vehicle Light Assembler Relationship Specialty Start Date End Date Joni Walker MD [address] [facility] [address] [phone] PCP - General 03/01/00 documented as of this encounter
--- OUTSIDE RECORDS SUMMARY | 2024-07-18 07:41 | XMS_ITS | Encounter Summary ---
Author Organization [facility] Address [address] [place] [address] Care Team Providers Care Client Development Director Name Role Phone Joni Walker MD Primary Care Provider [phone] Encounter Details Date Type Department Care Team (Late st Contact Info) Description 09/02/2004 Outpatient Historical [facility] Primary Care - [address] [place] [address] Joni Walker MD [address] [facility] [address] [address] Social History Tobacco Use Types Packs/Day Years Used Date Smoking Tobacco: Never Assessed Comments Unknown Sex and Gender Information Value Date Recorded Sex Assigned at Not on file Legal Sex Female 4: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 CELL STRIPPER Gender Identity Not on file Sexual Orientation Not on file documented as of this encounter Plan of Treatment Upcoming Encounters Date Type Department Care Team (Late st Contact Info) Description 08/28/2024 10:15 AM CDT Office Visit [facility] Oncology and Hematology - [place] [address] [place] [address] Diogo Benítez MD [address] [facility] [address] [place] [address] documented as of this encounter Visit Diagnoses Not on filedocumented in this encounter Care Teams Client Development Director Relationship Specialty Start Date End Date Joni Walker MD [address] [facility] [address] [address] PCP - General 03/01/00 documented as of this encounter
--- OUTSIDE RECORDS SUMMARY | 2024-07-18 07:41 | XMS_ITS | Encounter Summary ---
Author Organization [facility] Address [address] [place] [address] Care Team Providers Care Manufacturing Support Engineer Name Role Phone Joni Walker MD Primary Care Provider [phone] Encounter Details Date Type Department Care Team (Late st Contact Info) Description 04/20/2004 Outpatient Historical [facility] Primary Care - [address] [place] [address] Joni Walker MD [address] [facility] [address] [address] Social History Tobacco Use Types Packs/Day Years Used Date Smoking Tobacco: Never Assessed Comments Unknown Sex and Gender Information Value Date Recorded Sex Assigned at Not on file Legal Sex Female 4:38 AM SPECIAL CERTIFICATE DICTATOR Gender Identity Not on file Sexual Orientation Not on file documented as of this encounter Plan of Treatment Upcoming Encounters Date Type Department Care Team (Late st Contact Info) Description 08/28/2024 10:15 AM CDT Office Visit [facility] Oncology and Hematology - [place] [address] [place] [address] Diogo Benítez MD [address] [facility] [address] [place] [address] documented as of this encounter Visit Diagnoses Not on filedocumented in this encounter Care Teams Manufacturing Support Engineer Relationship Specialty Start Date End Date Joni Walker MD [address] [facility] [address] [address] PCP - General 03/01/00 documented as of this encounter
--- OUTSIDE RECORDS SUMMARY | 2024-07-18 07:41 | XMS_ITS | Encounter Summary ---
Author Organization [facility] Address [address] [place] [address] Care Team Providers Care Principal Engineer Name Role Phone Joni Walker MD Primary Care Provider [phone] Encounter Details Date Type Department Care Team (Late st Contact Info) Description 04/21/2007 Orders Only [facility] Primary Care - [address] [address] Amarjit Guillory MD NO ADDRESS ON FILE Social History Tobacco Use Types Packs/Day Years Used Date Smoking Tobacco: Never Assessed Comments Unknown Sex and Gender Information Value Date Recorded Sex Assigned at Not on file Legal Sex Female 4:38 AM IOS ARCHITECT Gender Identity Not on file Sexual Orientation Not on file documented as of this encounter Progress Notes * Amarjit Guillory MD - 10/26/2007 5:12 PM CDT TIME:03:26 pm PATIENT`S HOME PHONE: PATIENT`S WORK PHONE: PATIENT`S INSURANCE: [employer] [facility] WHO TOOK THE CALL: Molly Morales W GENERAL INFORMATION PATIENT STATUS: Established Patient. LAST VISIT: 02-28-07 PCP: Denise. ALTERNATIVE PHONE NUMBER: [phone] CURRENT ALLERGY LIST: NO KNOWN ALLERGIES PHARMACY NUMBER: [phone] PROBLEMS: ears feels full. CONGESTION: Patient complains of sinus congestion, complains of nasal congestion. yellow-green. COUGH:Patient complains of cough. The symptoms began approximately 3 days ago. prod . takign mitchelitin. FEVER: Patient complains of fever. 99 SORE THROAT: Patient complains of sore throat. SECTION 1: REQUESTED ACTION frankw 04/21/07 at 03:28 pm: windy grey'liam MEDICATION REQUEST: MEDICATIONS: AMOXICILLIN ORAL TABLET 500 MG, 1 Three Times A Day, 21 Dispensed, status: NEW PRESCRIPTION, 02/23/2005, Comment: lmor [phone] 1:16pm. ...............molly DOCTOR`S RESPONSE: [email or web address] 04/21/07 at 04:45 pm Refill this time only. FINAL ACTION: [email or web address] 04/21/07 at 04:57 pm Left message on patient`s recorder or with a family member 04/21/2007 at 04:57 pm. Called pharmacy at 04/21/07 at 04:57 pm. kylie Electronically Signed by: Kylie Bermeo on Saturday, April 21, 2007 documented in this encounter Plan of Treatment Upcoming Encounters Date Type Department Care Team (Late st Contact Info) Description 08/28/2024 10:15 AM CDT Office Visit [facility] Oncology and Hematology [facility] [address] [place] [address] [facility] [address] [place] [phone] Diogo Benítez MD [address] [facility] [address] [place] [address] documented as of this encounter Visit Diagnoses Not on filedocumented in this encounter Care Teams Principal Engineer Relationship Specialty Start Date End Date Joni Walker MD [address] [facility] [address] [address] PCP - General 03/01/00 documented as of this encounter
--- OUTSIDE RECORDS SUMMARY | 2024-07-18 07:41 | XMS_ITS | Encounter Summary ---
Author Organization [facility] Address [address] [place] [address] Care Team Providers Care Solar Fabrication Technician Name Role Phone Joni Walker MD Primary Care Provider [phone] Encounter Details Date Type Department Care Team (Late Contact Info) Description 07/06/2005 Outpatient Historical [facility] Primary Care - [address] [place] [address] Joni Walker MD [address] [facility] [address] [address] Social History Tobacco Use Types Packs/Day Years Used Date Smoking Tobacco: Never Assessed Comments Unknown Sex and Gender Information Value Date Recorded Sex Assigned at Not on file Legal Sex Female 4:38 AM PULPIT OPERATOR Gender Identity Not on file Sexual Orientation Not on file documented as of this encounter Last Filed Vital Signs Vital Sign Reading Time Taken Comments Blood Pressure 110/80 07/06/2005 1:15 PM PULPIT OPERATOR Pulse - - Temperature 37.2 ??C (99 ??F) 07/06/2005 1:15 PM PULPIT OPERATOR Respiratory Rate - - Oxygen Saturation - - Inhaled Oxygen Concentration - - Weight 115.2 kg (254 lb) 07/06/2005 1:15 PM PULPIT OPERATOR Height - - Body Mass Index - - documented in this encounter Plan of Treatment Upcoming Encounters Date Type Department Care Team (Late st Contact Info) Description 08/28/2024 10:15 AM CDT Office Visit [facility] Oncology and Hematology - [place] [address] [place] [address] Diogo Benítez MD [address] [facility] [address] [place] [address] documented as of this encounter Visit Diagnoses Not on filedocumented in this encounter Care Teams Solar Fabrication Technician Relationship Specialty Start Date End Date Joni Walker MD [address] [facility] [address] [address] PCP - General 03/01/00 documented as of this encounter
--- OUTSIDE RECORDS SUMMARY | 2024-07-18 07:41 | XMS_ITS | Encounter Summary ---
Author Organization [facility] Address [address] [place] [address] Care Team Providers Care Food And Nutrition Services Assistant Name Role Phone Joni Walker MD Primary Care Provider [phone] Encounter Details Date Type Department Care Team (Late st Contact Info) Description 07/27/2002 Outpatient Historical [facility] Primary Care - [address] [place] [address] Erickson Zamudio MD [address] [facility] [address] [place] [address] Social History Tobacco Use Types Packs/Day Years Used Date Smoking Tobacco: Never Assessed Comments Unknown Sex and Gender Information Value Date Recorded Sex Assigned at Not on file Legal Sex Female 4:38 AM 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 TECHNICIAN Gender Identity Not on file Sexual Orientation Not on file documented as of this encounter Plan of Treatment Upcoming Encounters Date Type Department Care Team (Late st Contact Info) Description 08/28/2024 10:15 AM CDT Office Visit [facility] Oncology and Hematology - [place] [address] [facility] [address] [place] [address] Diogo Benítez MD [address] [facility] [address] [place] [address] documented as of this encounter Visit Diagnoses Not on filedocumented in this encounter Care Teams Food And Nutrition Services Assistant Relationship Specialty Start Date End Date Joni Walker MD [address] [facility] [address] [address] PCP - General 03/01/00 documented as of this encounter
--- OUTSIDE RECORDS SUMMARY | 2024-07-18 07:41 | XMS_ITS | Encounter Summary ---
Author Organization [facility] Address [address] [place] [address] Care Team Providers Care Strategic Partnership Specialist Name Role Phone Joni Walker MD Primary Care Provider [phone] Encounter Details Date Type Department Care Team (Late st Contact Info) Description 05/30/2001 Outpatient Historical [facility] Katie Angel MD [address] [place] [address] SUPRV HI-RISK PREG-ELDERLY PRIMIP (Primary Dx) Social History Tobacco Use Types Packs/Day Years Used Date Smoking Tobacco: Never Assessed Comments Unknown Sex and Gender Information Value Date Recorded Sex Assigned at Not on file Legal Sex Female 4:38 AM HAND STAPLER Gender Identity Not on file Sexual Orientation Not on file documented as of this encounter Plan of Treatment Upcoming Encounters Date Type Department Care Team (Late st Contact Info) Description 08/28/2024 10:15 AM CDT Office Visit [facility] Oncology and Hematology - [place] [address] [facility] [address] [place] [address] Diogo Benítez MD [address] [facility] [address] [place] [address] documented as of this encounter Visit Diagnoses Diagnosis Supervision of high-risk of elderly primigravida- Primary documented in this encounter Care Teams Strategic Partnership Specialist Relationship Specialty Start Date End Date Joni Walker MD [address] [address] PCP - General 03/01/00 documented as of this encounter
--- OUTSIDE RECORDS SUMMARY | 2024-07-18 07:41 | XMS_ITS | Encounter Summary ---
Author Organization [facility] Address [address] [place] [address] Care Team Providers Care Health Economist Name Role Phone Joni Walker MD Primary Care Provider [phone] Encounter Details Date Type Department Care Team (Late st Contact Info) Description 02/11/2006 Orders Only [facility] Primary Care - [address] [place] [address] Joni Walker MD [address] [facility] [address] [address] Social History Tobacco Use Types Packs/Day Years Used Date Smoking Tobacco: Never Assessed Comments Unknown Sex and Gender Information Value Date Recorded Sex Assigned at Not on file Legal Sex Female 4: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 LAST VISIT: 12-17-05 PCP: randal. ALTERNATIVE PHONE NUMBER: [phone] WHO CALLED: Patient called. CURRENT ALLERGY LIST: NO KNOWN ALLERGIES PHARMACY NUMBER: [phone] PROBLEMS: CONGESTION: Patient complains of sinus congestion. The symptoms began approximately 2 days ago. w/ headache right between eyes...seem to not be that bad in the day time but at night fee she is so congested that she can't breath .....does have drainage down back of throat .......spits it up a yellowish / greenish mucus SECTION 1: REQUESTED ACTION ildefonso 02/11/06 at 01:28 pm: MEDICATION REQUEST: Patient wants medications and can not come in. /era DOCTOR`S RESPONSE: deyanira 02/11/06 at 01:32 pm MEDICATIONS: Call in to Pharmacy ENTEX PSE ORAL TABLET 12 HR 120-600 MG, 1 Two Times A Day, 20 Dispensed, status: CONTINUED, 02/11/2006. AUGMENTIN ORAL TABLET 875-125 MG, 1 Two Times A Day, 20 Dispensed, status: CONTINUED, 02/11/2006. FINAL ACTION: rayna 02/11/06 at 01:38 pm Spoke with patient 02/11/06 at 01:39 pm. Called pharmacy at 02/11/06 at 01:39 pm. jane espinosa Electronically Signed by: Marisa Templeton LPN on Saturday, February 11, 2006 documented in this encounter Plan of Treatment Upcoming Encounters Date Type Department Care Team (Late st Contact Info) Description 08/28/2024 10:15 AM CDT Office Visit [facility] Oncology and Hematology - [place] [address] [facility] [address] [place] [address] Diogo Benítez MD [address] [facility] [address] [place] [address] documented as of this encounter Visit Diagnoses Not on filedocumented in this encounter Care Teams Health Economist Relationship Specialty Start Date End Date Joni Walker MD [address] [facility] [address] [address] PCP - General 03/01/00 documented as of this encounter
--- OUTSIDE RECORDS SUMMARY | 2024-07-18 07:41 | XMS_ITS | Encounter Summary ---
Author Organization [facility] Address [address] [place] [address] Care Team Providers Care Project Engineering Manager Name Role Phone Joni Walker MD Primary Care Provider [phone] Encounter Details Date Type Department Care Team (Late st Contact Info) Description 03/24/2006 Orders Only [facility] Primary Care - [address] [place] [address] Joni Walker MD [address] [facility] [address] [address] Social History Tobacco Use Types Packs/Day Years Used Date Smoking Tobacco: Never Assessed Comments Unknown Sex and Gender Information Value Date Recorded Sex Assigned at Not on file Legal Sex Female 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 MEDICATIONS: Medications may have changed. Dr smalls review medications. CHIEF COMPLAINT Patient complains of rash. on arm, under right breast and abd...body aches, headache and the rash hurts PHYSICAL EXAMINATION: SKIN: RASH/LESION #1 LOCATION: Lower right breast. Right upper lateral abdomen. CHARACTERISTICS: The lesion is erythematous. The rash is maculopapular. The lesion border is irregular. ASSESSMENT Contact dermatitis 692.9. ASSESSMENT/PLAN: 692.0-CONTACT DERMATITIS ASSESSMENT: try meds, call with update MEDICATIONS: PREDNISONE ORAL TABLET 20 MG TABLETS, 3 tabs po daily for 3 days then 2 tabs daily for 3 days then one tab daily for 3 days, 18 Dispensed, status: NEW PRESCRIPTION, 03/24/2006. RETURN VISIT : Patient instructed to call in 1 week if not improving. Electronically Signed by: Joni Walker MD on Tuesday, April 11, 2006 documented in this encounter Plan of Treatment Upcoming Encounters Date Type Department Care Team (Late st Contact Info) Description 08/28/2024 10:15 AM CDT Office Visit [facility] Oncology and Hematology - [place] [address] [facility] [address] [place] [id number] Diogo Benítez MD [address] [facility] [address] [place] [address] documented as of this encounter Visit Diagnoses Not on filedocumented in this encounter Care Teams Project Engineering Manager Relationship Specialty Start Date End Date Joni Walker MD [address] [facility] [address] [address] PCP - General 03/01/00 documented as of this encounter
--- OUTSIDE RECORDS SUMMARY | 2024-07-18 07:41 | XMS_ITS | Encounter Summary ---
Author Organization [facility] Address [address] [place] [address] Care Team Providers Care Building Maintenance Supervisor Name Role Phone Joni Walker MD Primary Care Provider [phone] Encounter Details Date Type Department Care Team (Late st Contact Info) Description 12/17/2005 Outpatient Historical [facility] Primary Care - [address] [place] [address] Joni Walker MD [address] [facility] [address] [address] Social History Tobacco Use Types Packs/Day Years Used Date Smoking Tobacco: Never Assessed Comments Unknown Sex and Gender Information Value Date Recorded Sex Assigned at Not on file Legal Sex Female 4:38 AM END 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 Gender Identity Not on file Sexual Orientation Not on file documented as of this encounter Plan of Treatment Upcoming Encounters Date Type Department Care Team (Late st Contact Info) Description 08/28/2024 10:15 AM CDT Office Visit [facility] Oncology and Hematology - [place] [address] [place] [address] Diogo Benítez MD [address] [facility] [address] [place] [address] documented as of this encounter Visit Diagnoses Not on filedocumented in this encounter Care Teams Building Maintenance Supervisor Relationship Specialty Start Date End Date Joni Walker MD [address] [facility] [address] [address] PCP - General 03/01/00 documented as of this encounter
--- OUTSIDE RECORDS SUMMARY | 2024-07-18 07:41 | XMS_ITS | Encounter Summary ---
Author Organization [facility] Address [address] [place] [address] Care Team Providers Care Dye House Worker Name Role Phone Joni Walker MD Primary Care Provider [phone] Encounter Details Date Type Department Care Team (Latest Contact Info) Description 12/17/2005 Outpatient Historical [facility] Primary Care - [address] [place] [address] Joni Walker MD [address] [facility] [address] [address] Family History of Other Endocrine and Metabolic Diseases (Primary Dx) Social History Tobacco Use Types Packs/Day Years Used Date Smoking Tobacco: Never Assessed Comments Unknown Sex and Gender Information Value Date Recorded Sex Assigned at Not on file Legal Sex Female 4:38 AM CUSTOMER CARE ASSISTANT Gender Identity Not on file Sexual Orientation Not on file documented as of this encounter Plan of Treatment Upcoming Encounters Date Type Department Care Team (Late st Contact Info) Description 08/28/2024 10:15 AM CDT Office Visit [facility] Oncology and Hematology - [place] [address] [place] [address] Diogo Benítez MD [address] [facility] [address] [place] [address] documented as of this encounter Procedures Procedure Name Priority Date/Time Associated Diagnosis Comments TSH Routine 12/17/2005 7:41 PM CDT documented in this encounter Results * TSH (12/17/2005 7:41 PM CDT) TSH 1.09 0.27 - 4.20 uU/mL INTERFACE SYSTEM 12/17/2005 7:41 PM CDT Joni Walker MD CHEMISTRY ORDERABLES Final R esult INTERFACE SYSTEM Refer to clinic/hospital department documented in this encounter Visit Diagnoses Diagnosis Fam Hx endo/metab dis- Primary Family history of other endocrine and metabolic diseases documented in this encounter Care Teams Dye House Worker Relationship Specialty Start Date End Date Joni Walker MD [address] [facility] [address] [address] PCP - General 03/01/00 documented as of this encounter
--- OUTSIDE RECORDS SUMMARY | 2024-07-18 07:41 | XMS_ITS | Encounter Summary ---
Author Organization [facility] Address [address] [place] [address] Care Team Providers Care Soil Technician Name Role Phone Joni Walker MD Primary Care Provider [phone] Encounter Details Date Type Department Care Team (Late st Contact Info) Description 07/06/2005 Orders Only [facility] Primary Care - [address] [place] [address] Joni Walker MD [address] [facility] [address] [address] Social History Tobacco Use Types Packs/Day Years Used Date Smoking Tobacco: Never Assessed Comments Unknown Sex and Gender Information Value Date Recorded Sex Assigned at Not on file Legal Sex Female 4:38 AM INSTRUCTOR TECHNICAL 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 LAST VISIT: 11-19-04 PCP: Denise. ALTERNATIVE PHONE NUMBER: [phone] WHO CALLED: Patient called. CURRENT ALLERGY LIST: NO KNOWN ALLERGIES PHARMACY NUMBER: [phone] PROBLEMS: x 3days tried tylenol and nyquil HEADACHE: Patient complains of headache. sinus between eyes, ears congested- sinus drainage. no fever. SECTION 1: REQUESTED ACTION dano 07/06/05 at 10:23 am: MEDICATION REQUEST: Patient wants medication or an appointment..........Shirley DOCTOR`S RESPONSE: deyanira 07/06/05 at 10:30 am see 115pm if she wants to come in. BB FINAL ACTION: marbin 07/06/05 at 10:35 am Spoke with patient 07/06/05 at 10:35 am. Booked appointment: 07/06 1:15p.........Shirley Electronically Signed by: Shirley Morales on Wednesday, July 06, 2005 * Joni Walker MD - 03/21/2008 12:24 PM CDT TEMPERATURE: 99??f Oral WEIGHT: 254lbs BLOOD PRESSURE: 110/80 Right Arm Sitting NURSE NAME: Michelle Xavier A ALLERGIES: No known drug allergies. MEDICATIONS: Medications may have changed. Dr serina review medications. CHIEF COMPLAINT Patient complains of head congestion, sinus congestion, earaches. (left) and gland in the neck is enlarged HISTORY: ROS: ENT: NASAL CONGESTION PRESENT, SINUS CONGESTION NOTED. PHYSICAL EXAMINATION: EARS, NOSE, MOUTH AND THROAT: EARS: BULGING TYMPANIC MEMBRANES NOTED BILATERALLY. NOSE (AND SINUS): No abnormality of the nose or sinuses is noted. ORAL: Inspection of gums, lips, palate, and teeth normal. No scars, lesions, or masses. Oral mucosaunremarkable with non-inflamed posterior pharynx. RESPIRATORY: Clear to auscultation and percussion. Normal respiratory effort. ASSESSMENT/PLAN: 465.9-UPPER RESPIRATORY INFECTION ASSESSMENT: The patient's URI has worsened. Will start medication for better control. No laboratorywork is necessary at this time. STATUS: Worsening. MEDICATIONS: KETEK ORAL TABLET 400 MG, 2 Every Day, 10 Dispensed, status: NEW PRESCRIPTION, 07/06/2005. DYTAN-D ORAL TABLET CHEWABLE 25-10 MG, 1 Two Times A Day, 14 Dispensed, status: NEW PRESCRIPTION, 07/06/2005. RETURN VISIT : Patient instructed to call in 2 weeks if not improving. Electronically Signed by: Joni Walker MD on Monday, July 18, 2005 documented in this encounter Plan of Treatment Upcoming Encounters Date Type Department Care Team (Late st Contact Info) Description 08/28/2024 10:15 AM CDT Office Visit [facility] Oncology and Hematology - [place] [address] [facility] 200 [place] [address] Diogo Benítez MD [address] [facility] [address] [place] [address] documented as of this encounter Visit Diagnoses Not on filedocumented in this encounter Care Teams Soil Technician Relationship Specialty Start Date End Date Joni Walker MD [address] [facility] [address] [address] PCP - General 03/01/00 documented as of this encounter
--- OUTSIDE RECORDS SUMMARY | 2024-07-18 07:41 | XMS_ITS | Encounter Summary ---
Author Organization [facility] Address [address] [place] [address] Care Team Providers Care Door Operator Name Role Phone Joni Walker MD Primary Care Provider [phone] Encounter Details Date Type Department Care Team (Late st Contact Info) Description 06/20/2006 Outpatient Historical [facility] Primary Care - [address] [place] [address] Joni Walker MD [address] [facility] [address] [address] Social History Tobacco Use Types Packs/Day Years Used Date Smoking Tobacco: Never Assessed Comments Unknown Sex and Gender Information Value Date Recorded Sex Assigned at Not on file Legal Sex Female 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 Gender Identity Not on file Sexual Orientation Not on file documented as of this encounter Last Filed Vital Signs Vital Sign Reading Time Taken Comments Blood Pressure 110/80 06/20/2006 11:30 AM GENERAL PRODUCTION LABORER Pulse - - Temperature 37.1 ??C (98.7 ??F) 06/20/2006 11:[address] Respiratory Rate - - Oxygen Saturation - - Inhaled Oxygen Concentration - - Weight 115.7 kg (255 lb) 06/20/2006 11:30 AM GENERAL PRODUCTION LABORER Height - - Body Mass Index - - documented in this encounter Plan of Treatment Upcoming Encounters Date Type Department Care Team (Late st Contact Info) Description 08/28/2024 10:15 AM CDT Office Visit [facility] Oncology and Hematology - [place] [address] [facility] [address] [place] [address] Diogo Benítez MD [address] [facility] [address] [place] [address] documented as of this encounter Visit Diagnoses Not on filedocumented in this encounter Care Teams Door Operator Relationship Specialty Start Date End Date Joni Walker MD [address] [facility] [address] [address] PCP - General 03/01/00 documented as of this encounter
--- OUTSIDE RECORDS SUMMARY | 2024-07-18 07:41 | XMS_ITS | Encounter Summary ---
Author Organization [facility] Address [address] [place] [address] Care Team Providers Care Senior Bi Developer Name Role Phone Joni Walker MD Primary Care Provider [phone] Encounter Details Date Type Department Care Team (Late Contact Info) Description 09/24/2002 Outpatient Historical [facility] [address] [place] [address] Josh Powell DO Social History Tobacco Use Types Packs/Day Years Used Date Smoking Tobacco: Never Assessed Comments Unknown Sex and Gender Information Value Date Recorded Sex Assigned at Not on file Legal Sex Female 4:38 AM DISPATCHER MAINTENANCE SERVICE Gender Identity Not on file Sexual Orientation Not on file documented as of this encounter Plan of Treatment Upcoming Encounters Date Type Department Care Team (Late Contact Info) Description 08/28/2024 10:15 AM CDT Office Visit [facility] Oncology and Hematology - [place] 2[address] [facility] [address] [place] [address] Diogo Benítez MD [address] [facility] [address] [place] [address] documented as of this encounter Visit Diagnoses Not on filedocumented in this encounter Care Teams Senior Bi Developer Relationship Specialty Start Date End Date Joni Walker MD [address] [facility] [address] [address] PCP - General 03/01/00 documented as of this encounter
--- OUTSIDE RECORDS SUMMARY | 2024-07-18 07:41 | XMS_ITS | Encounter Summary ---
Author Organization [facility] Address [address] [place] [address] Care Team Providers Care Education And Training Coordinator Name Role Phone Joni Walker MD Primary Care Provider [phone] Encounter Details Date Type Department Care Team (Late st Contact Info) Description 07/11/2007 Orders Only [facility] Primary Care - [address] [place] [address] Joni Walker MD [address] [facility] [address] [address] Social History Tobacco Use Types Packs/Day Years Used Date Smoking Tobacco: Never Assessed Comments Unknown Sex and Gender Information Value Date Recorded Sex Assigned at Not on file Legal 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 LAST VISIT: PCP: tabatha. ALTERNATIVE PHONE NUMBER: [phone] WHO CALLED: Patient called. CURRENT ALLERGY LIST: NO KNOWN ALLERGIES PHARMACY NUMBER: [phone] PROBLEMS: pleurisy PAIN: Patient complains of pain. stabbing pain when she breathes in--lt shoulder hurting--when she hold lt shoulder with hand does not hurt as back SECTION 1: REQUESTED ACTION [email or web address] 07/11/07 at 02:23 pm: MEDICATION REQUEST: Patient requests a refill. MEDICATIONS: MEDROL (MULU) ORAL TABLET 4 MG TABLETS, as directed, 21 Dispensed, status: NEW PRESCRIPTION, 07/14/2005. ----kylie DOCTOR`S RESPONSE: deyanira 07/11/07 at 02:29 pm ok FINAL ACTION: [email or web address] 07/11/07 at 02:37 pm Spoke with patient 07/11/07 at 02:37 pm. Called pharmacy at 07/11/07 at 02:37 pm. / molly Electronically Signed by: Molly Morales on Wednesday, July 11, 2007 documented in this encounter Plan of Treatment Upcoming Encounters Date Type Department Care Team (Late st Contact Info) Description 08/28/2024 10:15 AM CDT Office Visit [facility] Oncology and Hematology - [place] [address] [place] [address] [address] [place] [phone] Diogo Benítez MD [address] [facility] [address] [place] [address] documented as of this encounter Visit Diagnoses Not on filedocumented in this encounter Care Teams Education And Training Coordinator Relationship Specialty Start Date End Date Joni Walker MD [address] [facility] [address] [address] PCP - General 03/01/00 documented as of this encounter
--- OUTSIDE RECORDS SUMMARY | 2024-07-18 07:41 | XMS_ITS | Encounter Summary ---
Author Organization [facility] Address [address] [place] [address] Care Team Providers Care Rail Tractor Operator Name Role Phone Joni Walker MD Primary Care Provider [phone] Encounter Details Date Type Department Care Team (Late st Contact Info) Description 04/15/2003 Outpatient Historical [facility] Primary Care - [address] [place] [address] Joni Walker MD [address] [facility] [address] [address] Social History Tobacco Use Types Packs/Day Years Used Date Smoking Tobacco: Never Assessed Comments Unknown Sex and Gender Information Value Date Recorded Sex Assigned at Not on file Legal Sex Female 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 Gender Identity Not on file Sexual Orientation Not on file documented as of this encounter Plan of Treatment Upcoming Encounters Date Type Department Care Team (Late st Contact Info) Description 08/28/2024 10:15 AM CDT Office Visit [facility] Oncology and Hematology - [place] [address] [place] [address] Dioog Benítez MD [address] [facility] [address] [place] [address] documented as of this encounter Visit Diagnoses Not on filedocumented in this encounter Care Teams Rail Tractor Operator Relationship Specialty Start Date End Date Joni Walker MD [address] [facility] [address] [address] PCP - General 03/01/00 documented as of this encounter
--- OUTSIDE RECORDS SUMMARY | 2024-07-18 07:41 | XMS_ITS | Encounter Summary ---
Author Organization [facility] Address [address] [place] [address] Care Team Providers Care 911 Emergency Dispatcher Name Role Phone Joni Walker MD Primary Care Provider [phone] Encounter Details Date Type Department Care Team (Late st Contact Info) Description 12/17/2005 Orders Only [facility] Primary Care - [address] [place] [address] Joni Walker MD [address] [facility] [address] [place] [address] Social History Tobacco Use Types Packs/Day Years Used Date Smoking Tobacco: Never Assessed Comments Unknown Sex and Gender Information Value Date Recorded Sex Assigned at Not on file Legal 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 LAST VISIT: 07-06-05 ALTERNATIVE PHONE NUMBER: [phone] CURRENT ALLERGY LIST: NO KNOWN ALLERGIES PHARMACY NUMBER: [phone] PROBLEMS: SECTION 1: REQUESTED ACTION brendon 12/17/05 at 09:07 am: pt said that under her left ear is swollen , sore to the touch, and pain in left, pt has had sx for a couple of days APPOINTMENT REQUEST: Patient wants an appointment today with any provider, no appointments available. pt wants to be seen today Ariel DOCTOR`S RESPONSE: deyanira 12/17/05 at 09:44 am 230pm BB FINAL ACTION: renu 12/17/05 at 09:51 am Spoke with patient 12/17/05 at 09:51 am. Booked appointment: Electronically Signed by: Celine Gamino on Saturday, December 17, 2005 * Joni Walker MD - 03/22/2008 9:38 AM CDT TEMPERATURE: 98.7??f Oral BLOOD PRESSURE: 102/70 Left Arm Sitting WEIGHT: 255lbs NURSE NAME: Michelle Xavier A ALLERGIES: No known drug allergies. MEDICATIONS: Medications may have changed. Dr to review medications. CHIEF COMPLAINT Patient complains of pain. in the left ear and side of the face x a couple of weeks...glands are swelling also PHYSICAL EXAMINATION: EARS, NOSE, MOUTH AND THROAT: EARS: BULGING TYMPANIC MEMBRANES NOTED BILATERALLY. NOSE (AND SINUS): MAXILLARY SINUSES ARE TENDER BILATERALLY, TURBINATES SWOLLEN BILATERALLY. ORAL: No discharge noted from the posterior pharynx, COBBLE STONING NOTED ON THE POSTERIOR PHARYNX. NECK/THYROID: Trachea midline. No thyroid enlargement, tenderness, or mass. No supraclavicular or cervical adenopathy. RESPIRATORY: Clear to auscultation and percussion. Normal respiratory effort. OFFICE PROCEDURES: INJECTIONS & IMMUNIZATIONS: . TETANUS AND DIPTHERIA TOXOID, 0.5, MILLILITERS, INTRAMUSCULAR INJECTION, Upper Left Arm, given by eusebio on 12/17/2005; no consent form signed, literature not given; abn form signed dl ASSESSMENT/PLAN: 461.9-SINUSITIS UNSPECIFIED ASSESSMENT: The patient's acute sinusitis has worsened. Will start medication for better control. 388.70-OTALGIA ASSESSMENT: try meds MEDICATIONS: AUGMENTIN ORAL TABLET 875-125 MG, 1 Two Times A Day, 20 Dispensed, 1 Fills, status: CONTINUED, 12/17/2005. 891.0-LACERATION (0PEN WOUND) LEG, LOWER ASSESSMENT: cut leg, will give dT LAB ORDERS: Order number: [id number] Test Ordered: INJ-TETANUS & DIPTHERIA TOXOID 81847 V18.1-FAMILY HISTORY OF CERTAIN OTHER SPECIFIC CONDITION ASSESSMENT: check labs, pt concerned about weight LAB ORDERS: Order number: [id number] Test Ordered: COMPREHENSIVE METABOLIC PANEL & GFR 1099 Order number: [id number] Test Ordered: TSH 1720 RETURN VISIT : Patient instructed to call in 2 weeks if not improving. Electronically Signed by: Joni Walker MD on Monday, January 09, 2006 documented in this encounter Plan of Treatment Upcoming Encounters Date Type Department Care Team (Late st Contact Info) Description 08/28/2024 10:15 AM CDT Office Visit [facility] Oncology and Hematology - [place] [address] [facility] [address] [place] [id number] Diogo Bneítez MD [address] [facility] [address] [place] [address] documented as of this encounter Visit Diagnoses Not on filedocumented in this encounter Care Teams 911 Emergency Dispatcher Relationship Specialty Start Date End Date Joni Walker MD [address] [facility] [address] [address] PCP - General 03/01/00 documented as of this encounter
--- OUTSIDE RECORDS SUMMARY | 2024-07-18 07:41 | XMS_ITS | Encounter Summary ---
Author Organization [facility] Address [address] [place] [address] Care Team Providers Care Certified Dietary Manager Name Role Phone Joni Walker MD Primary Care Provider [phone] Encounter Details Date Type Department Care Team (Late st Contact Info) Description 11/19/2004 Outpatient Historical [facility] Primary Care - [address] [place] [address] Joni Walker MD [address] [facility] [address] [address] Social History Tobacco Use Types Packs/Day Years Used Date Smoking Tobacco: Never Assessed Comments Unknown Sex and Gender Information Value Date Recorded Sex Assigned at Not on file Legal Sex Female 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 Gender Identity Not on file Sexual Orientation Not on file documented as of this encounter Last Filed Vital Signs Vital Sign Reading Time Taken Comments Blood Pressure 132/88 11/19/2004 10:30 AM CDT Pulse - - Temperature 37 ??C (98.6 ??F) 11/19/2004 10:30 AM CDT Respiratory Rate - - Oxygen Saturation - - Inhaled Oxygen Concentration - - Weight 114.3 kg (252 lb) 11/19/2004 10:30 AM CDT Height - - Body Mass Index - - documented in this encounter Plan of Treatment Upcoming Encounters Date Type Department Care Team (Late st Contact Info) Description 08/28/2024 10:15 AM CDT Office Visit [facility] Oncology and Hematology - [place] [address] [facility] [address] [place] [address] Diogo Benítez MD [address] [facility] [address] [place] [address] documented as of this encounter Visit Diagnoses Not on filedocumented in this encounter Care Teams Certified Dietary Manager Relationship Specialty Start Date End Date Joni Walker MD [address] [facility] [address] [address] PCP - General 03/01/00 documented as of this encounter
--- OUTSIDE RECORDS SUMMARY | 2024-07-18 07:41 | XMS_ITS | Encounter Summary ---
Author Organization [facility] Address [address] [place] [address] Care Team Providers Care Production Broaching Machine Operator Name Role Phone Joni Walker MD Primary Care Provider [phone] Encounter Details Date Type Department Care Team (Late st Contact Info) Description 12/28/2002 Outpatient Historical [facility] Primary Care - [address] [place] [address] Joni Walker MD [address] [facility] [address] [address] Social History Tobacco Use Types Packs/Day Years Used Date Smoking Tobacco: Never Assessed Comments Unknown Sex and Gender Information Value Date Recorded Sex Assigned at Not on file Legal 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 Female 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 Gender Identity Not on file Sexual Orientation Not on file documented as of this encounter Plan of Treatment Upcoming Encounters Date Type Department Care Team (Late st Contact Info) Description 08/28/2024 10:15 AM CDT Office Visit [facility] Oncology and Hematology - [place] [address] [place] [address] Diogo Benítez MD [address] [facility] [address] [place] [address] documented as of this encounter Visit Diagnoses Not on filedocumented in this encounter Care Teams Production Broaching Machine Operator Relationship Specialty Start Date End Date Joni Walker MD [address] [facility] [address] [place] [address] PCP - General 03/01/00 documented as of this encounter
--- OUTSIDE RECORDS SUMMARY | 2024-07-18 07:41 | XMS_ITS | Encounter Summary ---
Author Organization [facility] Address [address] [place] [address] Care Team Providers Care Field Traffic Investigator Name Role Phone Oralia Willson MD Primary Care Provider [phone] Encounter Details Date Type Department Care Team (Late st Contact Info) Description 07/20/2007 Outpatient Historical [facility] Mago Ashley MD [address] [facility] [address] [place] [address] Acute Bronchitis Social History Tobacco Use Types Packs/Day Years Used Date Smoking Tobacco: Never Assessed Comments Unknown Sex and Gender Information Value Date Recorded Sex Assigned at Not on file Legal Sex Female 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 Gender Identity Not on file Sexual Orientation Not on file documented as of this encounter Plan of Treatment Upcoming Encounters Date Type Department Care Team (Late st Contact Info) Description 08/28/2024 10:15 AM CDT Office Visit [facility] Oncology and Hematology - [place] [address] [facility] [address] [place] [address] Diogo Benítez MD [address] [facility] [address] [place] [address] documented as of this encounter Procedures Procedure Name Priority Date/Time Associated Diagnosis Comments XR CHEST PA AND LATERAL 2 VW Routine 07/20/2007 12:41 PM GRANITE POLISHER MACHINE documented in this encounter Results * XR CHEST PA AND LATERAL (07/20/2007 12:41 PM GRANITE POLISHER MACHINE) Anatomical Region Laterality Modality Chest Other 07/20/2007 12:4 1 PM GRANITE POLISHER MACHINE Narrative 07/21/2007 9:17 AM GRANITE POLISHER MACHINE ? [facility] ? [address] ?[place], [place] ??[address] ?Admit Date: 07/20/2007 ? SARINA VENEGAS ?Sex: F ?Admit Prov: MAGO ASHLEY ? Date: 1960 ?Primary Care Prov: ORALIA WILLSON ? CMRN: [id number] ?Room: IMGN-A ? SSN: [id number] ? IMAGING SERVICES ?Ordering Prov: N/A ? Accession Number: [id number] ?Interpretation ? Chest 07/20/2007 ? Clinical History: Bronchitis. ? PA and lateral views of the chest on 07/20/2007 without prior films for ? comparison demonstrates the cardiomediastinal silhouette and pulmonary ? vasculature to be within normal limits. Lungs are clear of acute processes. ? No effusions or pneumothoraces are evident. ? Impression: ? No acute disease. ? . ? Dictated by: ??CRYSTAL RHODES ?07/20/2007 13:07 ? Electronically signed by: ??CRYSTAL RHODES07/21/2007 09:17 ? Transcribed: ??07/20/2007 20:46 ?AMK Procedure Note Crystal Rhodes - 07/21/2007 [facility] [address] [place], [place] [address] Admit Date: 07/20/2007 THEO SARINA A Sex: F Admit Prov: MAGO ASHLEY Date:1960 Primary Care Prov: ORALIA WILLSON CMRN: [id number] Room: [facility] SSN: [id number] IMAGING SERVICES Ordering Prov: N/A Interpretation Chest 07/20/2007 Clinical History: Bronchitis. PA and lateral views of the chest on 07/20/2007 without prior filmsfor comparison demonstrates the cardiomediastinal silhouette andpulmonary vasculature to be within normal limits. Lungs are clear of acuteprocesses. No effusions or pneumothoraces are evident. Impression: No acute disease. . Dictated by: CRYSTAL RHODES 07/20/2007 13:07 Electronically signed by: CRYSTAL RHODES07/21/2007 09:17 Transcribed: 07/20/2007 20:46 AMK us Mago Ashley MD DIAGNOSTIC IMAGING ORDERABLE S Final Result documented in this encounter Visit Diagnoses Diagnosis Acute bronchitis documented in this encounter Care Teams Field Traffic Investigator Relationship Specialty Start Date End Date Oralia Willson MD [address] [facility] [address] [address] PCP - General 03/01/00 documented as of this encounter
--- OUTSIDE RECORDS SUMMARY | 2024-07-18 07:41 | XMS_ITS | Continuity of Care Document ---
Author Organization [facility] Address [address] [place] [address] [place] [address] Phone Care Team Providers Care Fence Repairman Name Role Phone Machelle Hoover Unavailable Unavailable Procedures Procedure Date Office/outpatient Visit, [facility] Office/outpatient Visit, [facility] Advance Directives Directive Yes / No Effective Date File Name No Information Encounters Encounter Description Practice Location Reason(s) For Visit Diagnoses Date Provider Providers Copied on Encounter Office/outpat ient Visit, [facility], [address] [place] [address] [address], [place], [place], [id number], tel:[phone] [facility] No Information [address], [place], [address], [place]. tel:[phone] Office/outpat ient Visit, [facility], [address] [place] [address] [address], [place], [place], [id number], tel:[phone] [facility] No Information [address]. [address] , [address], [place], [address], [place]. tel:[phone] Family History Family Member Type Diagnosis Age At Onset No Information Payers Payer name Insurance type Covered constitution party ID Authoriza tion(s) No Information Social History Type Description Quantity Date Captured Comments Sex Female Smoking Status No Information Chief Complaint And Reason For Visit No Information Reason For Referral Reason For Referral No Information History Of Present Illness Encounter Date Complaint History Of Prese nt Illness No Information Functional Status Date Functional Assessmen t No Information Instructions Date Instruction Additional Infor mation No Information Assessments Type Assessment Date No Information Patient Care Teams Name Effective Dates (start - stop) Status Members No Information
--- OUTSIDE RECORDS SUMMARY | 2024-07-18 07:41 | XMS_ITS | Encounter Summary ---
Author Organization [facility] Address [address] [place] [address] Care Team Providers Care Global Sales Executive Name Role Phone Joni Walker MD Primary Care Provider [phone] Encounter Details Date Type Department Care Team (Late st Contact Info) Description 12/17/2005 Outpatient Historical [facility] Primary Care - [address] [place] [address] Joni Walker MD [address] [facility] [address] [place] [address] Social History Tobacco Use Types Packs/Day Years Used Date Smoking Tobacco: Never Assessed Comments Unknown Sex and Gender Information Value Date Recorded Sex Assigned at Not on file Legal 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 Female 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 Gender Identity Not on file Sexual Orientation Not on file documented as of this encounter Plan of Treatment Upcoming Encounters Date Type Department Care Team (Late st Contact Info) Description 08/28/2024 10:15 AM CDT Office Visit [facility] Oncology and Hematology - [place] [address] [place] [address] Diogo Benítez MD [address] [facility] [address] [place] [address] documented as of this encounter Visit Diagnoses Not on filedocumented in this encounter Care Teams Global Sales Executive Relationship Specialty Start Date End Date Joni Walker MD [address] [facility] [address] [place] [address] PCP - General 03/01/00 documented as of this encounter
--- OUTSIDE RECORDS SUMMARY | 2024-07-18 07:41 | XMS_ITS | Encounter Summary ---
Author Organization [facility] Address 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 [address] [place] [address] Diogo Benítez MD [address] [facility] [address] [place] [address] documented as of this encounter Visit Diagnoses Diagnosis Unspecified hypertension, condition or complication- Primary documented in this encounter Care Teams Head Athletic Trainer/Strength Coach Relationship Specialty Start Date End Date Joni Walker MD [address] [address] PCP - General 03/01/00 documented as of this encounter
--- OUTSIDE RECORDS SUMMARY | 2024-07-18 07:41 | XMS_ITS | Encounter Summary ---
Author Organization [facility] Address [address] [place] [address] Care Team Providers Care Automobile Spring Repairer Name Role Phone Joni Walker MD Primary Care Provider [phone] Encounter Details Date Type Department Care Team (Late st Contact Info) Description 05/18/2001 Inpatient Historical [facility] PATIENT IN A BED Katie Angel MD [address] [place] [address] PREV DELIVERY NOS-DELIVER (Primary Dx) Social History Tobacco Use Types Packs/Day Years Used Date Smoking Tobacco: Never Assessed Comments Unknown Sex and Gender Information Value Date Recorded Sex Assigned at Not on file Legal Sex Female 4:38 AM TENDER COORDINATOR Gender Identity Not on file Sexual Orientation Not on file documented as of this encounter Plan of Treatment Upcoming Encounters Date Type Department Care Team (Late st Contact Info) Description 08/28/2024 10:15 AM CDT Office Visit [facility] Oncology and Hematology - [place] [address] [facility] [address] [place] [address] Diogo Benítez MD [address] [facility] [address] [place] [address] documented as of this encounter Visit Diagnoses Diagnosis Previous delivery, delivered, with or without mention of antepartum condition- Primary documented in this encounter Care Teams Automobile Spring Repairer Relationship Specialty Start Date End Date Joni Walker MD [address] [address] PCP - General 03/01/00 documented as of this encounter
--- OUTSIDE RECORDS SUMMARY | 2024-07-18 07:41 | XMS_ITS | Encounter Summary ---
Author Organization [facility] Address [address] [place] [address] Care Team Providers Care Bench Chemist Name Role Phone Joni Walker MD Primary Care Provider [phone] Encounter Details Date Type Department Care Team (Late st Contact Info) Description 12/17/2005 Outpatient Historical [facility] Primary Care - [address] [place] [address] Joni Walker MD [address] [facility] [address] [address] Social History Tobacco Use Types Packs/Day Years Used Date Smoking Tobacco: Never Assessed Comments Unknown Sex and Gender Information Value Date Recorded Sex Assigned at Not on file Legal Sex Female 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 Gender Identity Not on file Sexual Orientation Not on file documented as of this encounter Plan of Treatment Upcoming Encounters Date Type Department Care Team (Late st Contact Info) Description 08/28/2024 10:15 AM CDT Office Visit [facility] Oncology and Hematology - [place] [address] [place] [address] Diogo Benítez MD [address] [facility] [address] [place] [address] documented as of this encounter Visit Diagnoses Not on filedocumented in this encounter Care Teams Bench Chemist Relationship Specialty Start Date End Date Joni Walker MD [address] [facility] [address] [address] PCP - General 03/01/00 documented as of this encounter
--- OUTSIDE RECORDS SUMMARY | 2024-07-18 07:42 | XMS_ITS | Encounter Summary ---
Author Organization [facility] Address [address] [place] [address] Care Team Providers Care Manager Audit Name Role Phone Joni Walker MD Primary Care Provider [phone] Encounter Details Date Type Department Care Team (Latest Contact Info) Description 09/02/2008 Outpatient Historical [facility], [address] Joni Walker MD [address] [facility] [address] [address] Hematuria, Unspecified Social History Tobacco Use Types Packs/Day Years Used Date Smoking Tobacco: Never Alcohol Use Standard Drinks/Week Comments No 0 (1 standard drink = 0.6 oz pur e alcohol) Comments No Sex and Gender Information Value Date Recorded Sex Assigned at Not on file 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 Oncology and Hematology - [place] [address] [place] [address] Diogo Benítez MD [address] [facility] [address] [place] [address] documented as of this encounter Visit Diagnoses Diagnosis Hematuria, unspecified documented in this encounter Care Teams Manager Audit Relationship Specialty Start Date End Date Joni Walker MD [address] [facility] [address] [address] PCP - General 03/01/00 documented as of this encounter
--- OUTSIDE RECORDS SUMMARY | 2024-07-18 07:42 | XMS_ITS | Encounter Summary ---
Author Organization [facility] Address [address] [place] [address] Care Team Providers Care Bus Greaser Name Role Phone Joni Walker MD Primary Care Provider [phone] Encounter Details Date Type Department Care Team (Late st Contact Info) Description 07/29/2003 Outpatient Historical [facility] Primary Care - [address] [place] [address] Joni Walker MD [address] [facility] [address] [address] Social History Tobacco Use Types Packs/Day Years Used Date Smoking Tobacco: Never Assessed Comments Unknown Sex and Gender Information Value Date Recorded Sex Assigned at Not on file 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 [address] [place] [address] documented as of this encounter Visit Diagnoses Not on filedocumented in this encounter Care Teams Bus Greaser Relationship Specialty Start Date End Date Joni Walker MD [address] [facility] [address] [address] PCP - General 03/01/00 documented as of this encounter
--- OUTSIDE RECORDS SUMMARY | 2024-07-18 07:42 | XMS_ITS | Encounter Summary ---
Author Organization [facility] Address [address] [place] [address] Care Team Providers Care Muskrat Trapper Name Role Phone Joni Walker MD Primary Care Provider [phone] Encounter Details Date Type Department Care Team (Late st Contact Info) Description 07/14/2005 Orders Only 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 LAST VISIT: 07/06/05 PCP: tabatha. ALTERNATIVE PHONE NUMBER: [phone] until 4pm WHO CALLED: Patient called. Patient reports no known allergies. PHARMACY NUMBER: [phone] PROBLEMS: CONGESTION: Patient complains of sinus congestion, complains of head congestion, complains of nasalcongestion. clogged, Pt unable to blow out. EARACHE: Patient complains of earache. FEVER: Patient complains of fever. ? sneezing HEADACHE: Patient complains of headache. right eye draining. Pt says she is not any better. Pt says the meds really didnt help. Please advise? /magdalena SECTION 1: DOCTOR`S RESPONSE: mattief 07/14/05 at 01:58 pm send for sinus xray MEDICATIONS: Call in to Pharmacy LEVAQUIN ORAL TABLET 500 MG, 1 Every Day, 10 Dispensed, status: NEW PRESCRIPTION, 07/14/2005. MEDROL (MULU) ORAL TABLET 4 MG TABLETS, as directed, 21 Dispensed, status: NEW PRESCRIPTION, 07/14/2005. FINAL ACTION: [facility] 07/14/05 at 02:21 pm Spoke with patient 07/14/05 at 02:21 pm. Called pharmacy at 07/14/05 at 02:21 pm. jane/reinaldo ADDITIONAL COMMENTS: pt needs siunus x-ray sent/reinaldo SECTION 2: FINAL ACTION: [facility] 07/14/05 at 04:31 pm sent/reinaldo Electronically Signed by: Reinaldo [place] on Thursday, July 14, 2005 documented in this encounter Plan of Treatment Upcoming Encounters Date Type Department Care Team (Late st Contact Info) Description 08/28/2024 10:15 AM CDT Office Visit [facility] Oncology and Hematology - [place] [address] [facility] [address] [place] [address] Diogo Benítez MD [address] [facility] [address] [place] [address] documented as of this encounter Visit Diagnoses Not on filedocumented in this encounter Care Teams Muskrat Trapper Relationship Specialty Start Date End Date Joni Walker MD [address] [facility] [address] [address] PCP - General 03/01/00 documented as of this encounter
--- OUTSIDE RECORDS SUMMARY | 2024-07-18 07:42 | XMS_ITS | Encounter Summary ---
Author Organization [facility] Address [address] [place] [address] Care Team Providers Care Director Of Revenue Name Role Phone Joni Walker MD Primary Care Provider [phone] Encounter Details Date Type Department Care Team (Late st Contact Info) Description 09/24/2002 [facility] [address] 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 Gender Identity Not on file Sexual Orientation Not on file documented as of this encounter Plan of Treatment Upcoming Encounters Date Type Department Care Team (Late st Contact Info) Description 08/28/2024 10:15 AM CDT Office Visit [facility] Oncology and Hematology - [place] [address] [facility] [address] [place] [address] Diogo Benítez MD [address] [facility] [address] [place] [address] documented as of this encounter Visit Diagnoses Not on filedocumented in this encounter Care Teams Director Of Revenue Relationship Specialty Start Date End Date Joni Walker MD [address] [facility] [address] [address] PCP - General 03/01/00 documented as of this encounter
--- OUTSIDE RECORDS SUMMARY | 2024-07-18 07:42 | XMS_ITS | Encounter Summary ---
Author Organization [facility] Address [address] [place] [address] Care Team Providers Care Director Of Clinical Applications Name Role Phone Joni Walker MD Primary Care Provider [phone] Encounter Details Date Type Department Care Team (Late st Contact Info) Description 07/20/2007 Outpatient Historical [facility] Primary Care - [facility] [address] [place] [address] [address] [place] [address] Yue Morrell MD [address] [place] [address] [address] [place] [address] Social History Tobacco Use Types Packs/Day Years Used Date Smoking Tobacco: Never Assessed Comments Unknown Sex and Gender Information Value Date Recorded Sex Assigned at Not on file Legal Sex Female 4:38 AM QUARRY BOSS Gender Identity Not on file Sexual Orientation Not on file documented as of this encounter Plan of Treatment Upcoming Encounters Date Type Department Care Team (Late st Contact Info) Description 08/28/2024 10:15 AM CDT Office Visit [facility] Oncology and Hematology - [place] [address] [facility] [address] [place] [address] Diogo Benítez MD [address] [facility] [address] [place] [address] documented as of this encounter Visit Diagnoses Not on filedocumented in this encounter Care Teams Director Of Clinical Applications Relationship Specialty Start Date End Date Joni Walker MD [address] [facility] [address] [address] PCP - General 03/01/00 documented as of this encounter
--- OUTSIDE RECORDS SUMMARY | 2024-07-18 07:42 | XMS_ITS | Encounter Summary ---
Author Organization [facility] Address [address] [place] [address] Care Team Providers Care Carton Inspector Name Role Phone Joni Walker MD Primary Care Provider [phone] Encounter Details Date Type Department Care Team (Late st Contact Info) Description 09/25/2002 Outpatient Historical [facility] Support Serv. ([facility]) [address] 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 Gender Identity Not on file Sexual Orientation Not on file documented as of this encounter Plan of Treatment Upcoming Encounters Date Type Department Care Team (Late st Contact Info) Description 08/28/2024 10:15 AM CDT Office Visit [facility] Oncology and Hematology - [place] [address] [facility] [address] [place] [address] [place] [address] Diogo Benítez MD [address] [facility] [address] [place] [address] documented as of this encounter Visit Diagnoses Not on filedocumented in this encounter Care Teams Carton Inspector Relationship Specialty Start Date End Date Joni Walker MD [address] [facility] [address] [address] PCP - General 03/01/00 documented as of this encounter
--- OUTSIDE RECORDS SUMMARY | 2024-07-18 07:42 | XMS_ITS | Encounter Summary ---
Author Organization [facility] Address [address] [place] [address] Care Team Providers Care Rn Patient Services Name Role Phone Joni Walker MD Primary Care Provider [phone] Encounter Details Date Type Department Care Team (Late st Contact Info) Description 07/20/2007 Outpatient Historical [facility] Primary Care - 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 Gender Identity Not on file Sexual Orientation Not on file documented as of this encounter Plan of Treatment Upcoming Encounters Date Type Department Care Team (Late st Contact Info) Description 08/28/2024 10:15 AM CDT Office Visit [facility] Oncology and Hematology - [place] [address] [facility] [address] [place] [address] Diogo Benítez MD [address] [facility] [address] [place] [address] documented as of this encounter Visit Diagnoses Not on filedocumented in this encounter Care Teams Rn Patient Services Relationship Specialty Start Date End Date Joni Walker MD [address] [facility] [address] [address] PCP - General 03/01/00 documented as of this encounter
--- OUTSIDE RECORDS SUMMARY | 2024-07-18 07:42 | XMS_ITS | Encounter Summary ---
Author Organization [facility] Address [address] [place] [address] Care Team Providers Care Technology Consultant Name Role Phone Joni Walker MD Primary Care Provider [phone] Encounter Details Date Type Department Care Team (Latest Contact Info) Description 07/15/2005 Outpatient Historical [facility] Joni Walker MD [address] 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 Gender Identity Not on file Sexual Orientation Not on file documented as of this encounter Plan of Treatment Upcoming Encounters Date Type Department Care Team (Late st Contact Info) Description 08/28/2024 10:15 AM CDT Office Visit [facility] Oncology and Hematology - [place] [address] [facility] [address] [place] [place] [address] Diogo Benítez MD [address] [facility] [address] [place] [address] documented as of this encounter Visit Diagnoses Diagnosis Observation for other specified suspected conditions- Primary documented in this encounter Care Teams Technology Consultant Relationship Specialty Start Date End Date Joni Walker MD [address] [place] [address] [address] PCP - General 03/01/00 documented as of this encounter
== END 2024-07-18 07:38 | disposition home or self-care (01) ==
PROVIDERS: PCP Internal Medicine; Visit Provider Internal Medicine Hematology & Oncology
DX: N63.0 Unspecified lump in unspecified breast (principal)
CPT/HCPCS: 19000; 19083; 77065; 88305; 88342; A4648